=== PATIENT | female | born 1935 | race Caucasian/White ===

== ENCOUNTER → 2017-03-12 | Outpatient (CLI) | payer OTHER, MEDICAID ==
[2013-07-30 09:30] VITALS: BP 121/56
[2017-03-12 07:23] LABS: BASOPHILS % (AUTO) 0.4 % (0.2-1.0); EOSINOPHILS # (AUTO) 0.2 x10^3/uL (0.0-0.2); EOSINOPHILS % (AUTO) 3.7 % (0.9-2.9); HEMATOCRIT 38.1 % (36.0-47.0); HEMOGLOBIN 13.3 g/dL (12.0-16.0); LYMPHOCYTES # (AUTO) 1.9 X10^3/uL (1.3-2.9); LYMPHOCYTES % (AUTO) 28.8 % (21.0-51.0); MEAN CORPUSCULAR HEMOGLOBIN 31.9 pg (27.0-34.0); MEAN CORPUSCULAR HGB CONC 34.8 g/dL (33.0-35.0); MEAN CORPUSCULAR VOLUME 91.7 fL (80.0-100.0); MEAN PLATELET VOLUME 8.5 fL (7.4-11.0); MONOCYTES # (AUTO) 0.7 x10^3/uL (0.3-0.8); MONOCYTES % (AUTO) 10.7 % (0.0-13.0); NEUTROPHILS # (AUTO) 3.8 x10^3/uL (2.2-4.8); NEUTROPHILS % (AUTO) 56.4 % (42.0-75.0); PLATELET COUNT 195 X10^3/uL (150.0-450.0); RED BLOOD COUNT 4.15 X10^6/uL (3.5-5.4); RED CELL DISTRIBUTION WIDTH 13.3 % (11.6-16.5); WHITE BLOOD COUNT 6.7 X10^3/uL (3.6-10.0)
--- NOTE | 2017-03-12 07:25 | RAD ---
HISTORY: Abdominal pain Study: Acute abdominal series Comparison: None Findings: The trachea is midline. The cardiac silhouette is unremarkable. The lungs are clear without focal infiltrate or effusion. The bony thorax is unremarkable. Flat plate and upright evaluation of the abdomen demonstrates a normal bowel gas pattern. No pneumop eritoneum is identified.. No pathological soft tissue mass or calcification can be observed. The b shara structures are grossly intact. IMPRESSION: 1. No acute cardiopulmonary disease. 2. No evidence for acute abdominal pathology identified. Reported By:
[2017-03-12 07:30] LABS: ALANINE AMINOTRANSFERASE 20 Units/L (12-78); ALBUMIN 3.6 g/dL (3.4-5.0); ALKALINE PHOSPHATASE 69 Units/L (46-116); ASPARTATE AMINO TRANSFERASE 21 Units/L (15-37); BLOOD UREA NITROGEN 18 mg/dL (7-18); CALCIUM 9.3 mg/dL (8.5-10.1); CARBON DIOXIDE 30.6 mmol/L (21-32); CHLORIDE 106 mmol/L (98-107); CREATININE 1.14 mg/dL (0.55-1.02); GLUCOSE 96 mg/dL (65-99); SODIUM 140 mmol/L (136-145); TOTAL PROTEIN 7.5 g/dL (6.4-8.2); eGFR BLACK RACES 59 (>60); eGFR NON BLACK RACES 49 (>60)
== END | disposition home or self-care (01) | DRG 392 ==
LOC: LAB 06:49
PROVIDERS: ATTEND Nurse Practitioner Family
DX: R10.31 Right lower quadrant pain (principal); R10.32 Left lower quadrant pain; R39.89 Other symptoms and signs involving the genitourinary system; Z87.19 Personal history of other diseases of the digestive system; B95.4 Other streptococcus as the cause of diseases classified elsewhere
CPT/HCPCS: 36415; 74022; 80053; 82270; 85025; 87045; 87086; 87088; 87186; 87338; 87427; 87493; 87899

== ENCOUNTER → 2017-09-15 | Outpatient (CLI) | payer OTHER, MEDICAID ==
[2013-07-30 09:30] VITALS: BP 121/56
[2017-09-15 08:41] LABS: BASOPHILS % (AUTO) 0.3 % (0.2-1.0); EOSINOPHILS # (AUTO) 0.2 x10^3/uL (0.0-0.2); EOSINOPHILS % (AUTO) 2.8 % (0.9-2.9); HEMATOCRIT 37.5 % (36.0-47.0); HEMOGLOBIN 12.7 g/dL (12.0-16.0); LYMPHOCYTES # (AUTO) 1.9 X10^3/uL (1.3-2.9); LYMPHOCYTES % (AUTO) 28.3 % (21.0-51.0); MEAN CORPUSCULAR HGB CONC 33.8 g/dL (33.0-35.0); MEAN CORPUSCULAR VOLUME 94.4 fL (80.0-100.0); MEAN PLATELET VOLUME 8.2 fL (7.4-11.0); MONOCYTES # (AUTO) 0.6 x10^3/uL (0.3-0.8); MONOCYTES % (AUTO) 9.6 % (0.0-13.0); NEUTROPHILS # (AUTO) 3.9 x10^3/uL (2.2-4.8); PLATELET COUNT 181 X10^3/uL (150.0-450.0); RED BLOOD COUNT 3.97 X10^6/uL (3.5-5.4); WHITE BLOOD COUNT 6.7 X10^3/uL (3.6-10.0)
[2017-09-15 08:49] LABS: ALANINE AMINOTRANSFERASE 19 Units/L (12-78); ALBUMIN 3.4 g/dL (3.4-5.0); ALKALINE PHOSPHATASE 73 Units/L (46-116); ASPARTATE AMINO TRANSFERASE 19 Units/L (15-37); BLOOD UREA NITROGEN 20 mg/dL (7-18); CALCIUM 8.4 mg/dL (8.5-10.1); CARBON DIOXIDE 29.3 mmol/L (21-32); CHLORIDE 105 mmol/L (98-107); CHOL/HDL RATIO 3.2 (0.0-5.0); CHOLESTEROL 177 mg/dL (0-200); CREATININE 0.96 mg/dL (0.55-1.02); HDL CHOLESTEROL 55 mg/dL (40-60); SODIUM 141 mmol/L (136-145); TOTAL PROTEIN 6.9 g/dL (6.4-8.2); TRIGLYCERIDES 101 mg/dL (0-150); eGFR BLACK RACES > 60 (>60); eGFR NON BLACK RACES 59 (>60)
[2017-09-19 15:19] LABS: METHYLMALONIC ACID 0.17 umol/L (0.00-0.40)
== END ==
LOC: LAB 08:08
PROVIDERS: ATTEND Nurse Practitioner Family
DX: I10 Essential (primary) hypertension (principal); E78.4 Other hyperlipidemia; E53.8 Deficiency of other specified B group vitamins; Z79.890 Hormone replacement therapy
CPT/HCPCS: 36415; 80053; 80061; 82607; 83918; 84270; 84402; 84403; 85025

== ENCOUNTER → 2017-10-19 | Outpatient (CLI) | payer OTHER, MEDICAID ==
[2013-07-30 09:30] VITALS: BP 121/56
== END ==
LOC: LAB 07:54
PROVIDERS: ATTEND Psychiatry & Neurology Neurology
DX: Z79.890 Hormone replacement therapy (principal)
CPT/HCPCS: 36415; 84270; 84402; 84403

== ENCOUNTER → 2018-01-04 | Outpatient (CLI) | payer OTHER, MEDICAID ==
[2013-07-30 09:30] VITALS: BP 121/56
[2018-01-04 07:53] LABS: BASOPHILS # (AUTO) 0.1 X10^3/uL (0.0-0.1); BASOPHILS % (AUTO) 1.2 % (0.2-1.0); EOSINOPHILS # (AUTO) 0.2 x10^3/uL (0.0-0.2); EOSINOPHILS % (AUTO) 2.9 % (0.9-2.9); HEMATOCRIT 38.4 % (36.0-47.0); HEMOGLOBIN 13.2 g/dL (12.0-16.0); LYMPHOCYTES # (AUTO) 1.5 X10^3/uL (1.3-2.9); LYMPHOCYTES % (AUTO) 26.1 % (21.0-51.0); MEAN CORPUSCULAR HEMOGLOBIN 32.8 pg (27.0-34.0); MEAN CORPUSCULAR HGB CONC 34.4 g/dL (33.0-35.0); MEAN CORPUSCULAR VOLUME 95.2 fL (80.0-100.0); MEAN PLATELET VOLUME 7.7 fL (7.4-11.0); MONOCYTES # (AUTO) 0.5 x10^3/uL (0.3-0.8); MONOCYTES % (AUTO) 8.9 % (0.0-13.0); NEUTROPHILS # (AUTO) 3.6 x10^3/uL (2.2-4.8); NEUTROPHILS % (AUTO) 60.9 % (42.0-75.0); PLATELET COUNT 182 X10^3/uL (150.0-450.0); RED BLOOD COUNT 4.04 X10^6/uL (3.5-5.4); RED CELL DISTRIBUTION WIDTH 15.4 % (11.6-16.5); WHITE BLOOD COUNT 5.9 X10^3/uL (3.6-10.0)
[2018-01-04 08:06] LABS: ALANINE AMINOTRANSFERASE 22 Units/L (12-78); ALBUMIN 3.6 g/dL (3.4-5.0); ALKALINE PHOSPHATASE 59 Units/L (46-116); ASPARTATE AMINO TRANSFERASE 20 Units/L (15-37); BLOOD UREA NITROGEN 19 mg/dL (7-18); CALCIUM 8.6 mg/dL (8.5-10.1); CARBON DIOXIDE 28.6 mmol/L (21-32); CHLORIDE 102 mmol/L (98-107); CHOL/HDL RATIO 3.1 (0.0-5.0); CHOLESTEROL 196 mg/dL (0-200); CREATININE 1.05 mg/dL (0.55-1.02); HDL CHOLESTEROL 64 mg/dL (40-60); SODIUM 138 mmol/L (136-145); TOTAL PROTEIN 7.4 g/dL (6.4-8.2); TRIGLYCERIDES 115 mg/dL (0-150); eGFR BLACK RACES > 60 (>60); eGFR NON BLACK RACES 53 (>60)
[2018-01-08 15:38] LABS: DEHYDROEPIANDROSTERONE SULFATE 5 ug/dL (10-90)
== END ==
LOC: LAB 07:28
PROVIDERS: ATTEND Nurse Practitioner Family
DX: I10 Essential (primary) hypertension (principal); E78.4 Other hyperlipidemia; E53.8 Deficiency of other specified B group vitamins; Z79.890 Hormone replacement therapy
CPT/HCPCS: 36415; 80053; 80061; 82607; 82627; 82671; 84144; 84270; 84402; 84403; 85025

== ENCOUNTER 2019-06-08 13:16 | Inpatient (IN) ==
--- NOTE | 2019-06-08 13:40 | ED.ABDFE ---
HPI Time Seen Time Seen by Provider: 06/08/19 13:25 PCP Primary Care Physician: SARI JIM HPI Comment HPI Comment: PATIENT IS 84YR OLD WHITE FEMALE WITH HISTORY OF DIVERTICULITIS IN ED WEAK WITH SEVERE ABDOMINAL PAIN. PATIENT IS ON ORAL ANTIBIOTICS. SEEN IN ED IN [place]NE[place] YESTERDAY. CT ABDOMEN AND PELVIC WITH CONTRAST DONE. PNEUMONIA REPORTED BUT NO ACUTE ABDOMEN DIAGNOSE. PATIENT CONTINUE HAVING DIARRHEA AND FEELING WEAK WITH INCREASE ABDOMINAL PAIN. SHE IS ANOREXIC AND NOT HOLDING DOWN FOOD. ABDOMINAL PAIN IS DIFFUSE CRAMPS 10/10 AND RADIATES TO THE BACK. MEDIICATION TAKEN IS NOT STAYING DOWN AND NOT HELPING PAIN. PATIENT SAID SHE FEEL DEHYDRATED. Complaint Doctors Chief Complaint Comments: ABDOMINAL PAIN, DIARRHEA, GENERALIZES WEAKNESS. Chief Complaint:: "I JUST CAN'T TAKE THIS PAIN IN MY STOMACH ANYMORE. I WAS SEEN IN SNELLING ER YESTERDAY AND THEY DID NOTHING FOR ME I'M GOING TO NEED PAIN MEDICATION." Self Treatment fo Chief Complaint: NONE Reviewed Nurses Notes Review: Yes Source History Provided: Patient Mode of arrival Mode of Arrival: EMS Timing Onset of Chief Complaint: 06/06/19 Came on: Suddenly Duration Since Onset: Constant Duration: Days Location Location: Diffuse Severity Severity: Moderate Quality Quality: Cramping and Generalized Context History of: None Modifying factors Worsening Factors: Movement Improving Factors: Lying Still Associated signs and symptoms Associated Signs and Symptoms: Nausea, Vomiting and Diarrhea PMH PMH Past Medical History: Yes Past Medical History: Anxiety, Arthritis, Depression and Hypertension Past Surgical History: Yes 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 Family History History of Family Medical Conditions: Yes Family Medical History: Cancer and [place] Social History Does patient currently use any type of tobacco product: No Have you used tobacco products in the last 12 months: No Type of Tobacco Use: None Does any household member use tobacco: No Alcohol Use: None Do you use any recreational Drugs:: No Lives With: Family Lives Where: Home infectious screening In the last 2 months have you had wt loss of >10#?: NO Have you had fever, night sweats or hemotysis?: No Have you traveled outside the country in the last 6 months?: No Isolation: Standard ROS Review of Systems Constitutional: See HPI, Weakness and Fatigue; negative Fever Eyes: No Symptoms Reported and See HPI; negative Eye Pain and Discharge ENTM: No Symptoms Reported and See HPI; negative Ear Pain, Nose Discharge, Nose Congestion and Throat Pain Respiratoy: No Symptoms Reported and See HPI; negative Short of Breath and Wheezing Cardiovascular: No Symptoms Reported and See HPI; negative Chest Pain, Edema and Palpitations Gastrointestinal/Abdominal: Abdominal Pain, Diarrhea, Nausea and Vomiting Genitourinary: No Symptoms Reported and See HPI; negative Dysuria, Frequency and Hematuria Neurological: See HPI, Weakness and Dizziness; negative Headache Musculoskeletal: See HPI, Back Pain and Muscle Pain Integumentary: See HPI and Dryness; negative Change in Color Hematologic/Lymphatic: No Symptoms Reported and See HPI; negative Easy Bleeding, Easy Bruising and Swollen Glands Endocrine: See HPI and Increased Thirst; negative Increased Urine Psychiatric: No Symptoms Reported and See HPI All Other Systems: Reviewed and Negative PE Vital Signs Vitals: Temperature 98.6 F Pulse Rate [Right Dorsalis 66 Pedis] Pulse Rate 66 Respiratory Rate 20 Blood Pressure [Right Arm] 156/69 Blood Pressure [Left Arm] 126/65 Blood Pressure 171/77 O2 Sat by Pulse Oximetry 96 General Limitations: No Limitations General Appearance: Alert and In No Apparent Distress Head Head Exam: Normal Inspection Eyes Eye exam: Normal Appearance and PERRL; negative Scleral Icterus and Conjunctival Injection ENT ENT Exam: Normal Exam, Normal Oropharynx, Normal External Ear Exam and TM's Nor mal Bilaterally Neck Neck Exam: Normal Inspection and Trachea Midline; negative Tenderness and Lymphadenopathy Chest Chest Inspection: Normal Inspection and Symmetric Chest Wall Rise; negative Tenderness Respiratory Respiratory Exam: Normal Lung Sounds Bilat; negative Accessory Muscle Use, Chest Wall Tenderness and Respiratory Distress Respiratory Exam: Bilateral: Clear to Auscultation Cardiovascular Cardiovascular Exam: Regular Rate and Normal Rhythm; negative Normal Heart Sounds, Systolic Murmur and Diastolic Murmur Abdominal Exam Abdominal Exam: Normal Bowel Sounds, Soft and Tenderness Abdominal Tenderness: Diffuse and Moderate Rectal Rectal Exam: Deferred Back Back Exam: Normal Inspection; negative Tenderness, (R) CVA Tenderness, (L) CVA Tenderness, Paraspinal Tenderness and Vertebral Tenderness Extremeties Extremities Exam: Normal Inspection and Normal Capillary Refill; negative Tenderness, Edema and Calf Tenderness External Exam: Female: Deferred : Speculum Exam (Female): Deferred : Bimanual Exam (female): Deferred Neurologic Neurological Exam: Alert and Oriented X3; negative Motor Sensory Deficit Psychiatric Psychiatric Exam: Normal Affect and Normal Mood Skin Skin Exam: Dry MDM Additional Information Obtained From Additional information provided by: Family Differential Diagnosis Differential Diagnosis- Considerations may include:: Cholcystitis, Cholelethiasis, Diverticular disease, Gastritus/PUD, Gastroenteritis, Inflammatory BD, Pancreatitis, Urinary tract infection and Urolithiasis COURSE Treatment Treatment: SEE ORDERS. NS 1L IV BOLUS. ZOFRAN 4MG IV AND DEMOROL 12.5MG IV. STIL L NAUSEATED. ZOFRAN 4MG IS. Reevaluation 1st: Improved (PAIN IMPROVING.) Consultation Consultation Comments: DISCUSS PATIENT WITH DR. CHEN. HE WILL ADMIT PATIENT. TIME 2MINUTES. Education/Counseling Education/Counseling: Patient and Family Educated On: Diagnosis ROR Labs Reviewed Laboratory Results Reviewed?: Yes Result Diagrams: 06/09/19 04:43 06/09/19 15:45 Laboratory: WBC 5.6 X10^3/uL (3.6-10.0) 06/09/19 04:43 RBC 3.34 X10^6/uL (3.5-5.4) L 06/09/19 04:43 Hgb 10.8 g/dL (12.0-16.0) L 06/09/19 04:43 Hct 30.4 % (36.0-47.0) L 06/09/19 04:43 MCV 91.2 fL (80.0-100.0) 06/09/19 04:43 MCH 32.4 pg (27.0-34.0) 06/09/19 04:43 MCHC 35.5 g/dL (33.0-35.0) H 06/09/19 04:43 RDW 14.4 % (11.6-16.5) 06/09/19 04:43 Plt Count 191 X10^3/uL (150.0-450.0) 06/09/19 04:43 MPV 7.1 fL (7.4-11.0) L 06/09/19 04:43 Neut % (Auto) 63.5 % (42.0-75.0) 06/09/19 04:43 Lymph % (Auto) 18.0 % (21.0-51.0) L 06/09/19 04:43 [place] % (Auto) 14.6 % (0.0-13.0) H 06/09/19 04:43 Eos % (Auto) 3.7 % (0.9-2.9) H 06/09/19 04:43 Baso % (Auto) 0.2 % (0.2-1.0) 06/09/19 04:43 Neut # (Auto) 3.5 x10^3/uL (2.2-4.8) 06/09/19 04:43 Lymph # (Auto) 1.0 X10^3/uL (1.3-2.9) L 06/09/19 04:43 [place] # (Auto) 0.8 x10^3/uL (0.3-0.8) 06/09/19 04:43 Eos # (Auto) 0.2 x10^3/uL (0.0-0.2) 06/09/19 04:43 Baso # (Auto) 0.0 X10^3/uL (0.0-0.1) 06/09/19 04:43 Absolute Nucleated RBC 0.0 /100WBC 06/09/19 04:43 Sodium 133 mmol/L (136-145) L 06/09/19 04:43 Corrected Sodium TNP 06/09/19 04:43 Potassium 4.0 mmol/L (3.5-5.1) 06/09/19 15:45 Chloride 95 mmol/L (98-107) L 06/09/19 04:43 Carbon Dioxide 29.4 mmol/L (21-32) 06/09/19 04:43 BUN 5 mg/dL (7-18) L 06/09/19 04:43 Creatinine 1.01 mg/dL (0.55-1.02) 06/09/19 04:43 Est GFR (MDRD) Af Amer > 60 (>60) 06/09/19 04:43 Est GFR (MDRD) Non-Af 56 (>60) L 06/09/19 04:43 Glucose 101 mg/dL (65-99) H 06/09/19 04:43 Lactic Acid 0.7 mmol/L (0.4-2.0) 06/08/19 15:24 Calcium 8.5 mg/dL (8.5-10.1) 06/09/19 04:43 Corrected Calcium 9.1 mg/dL (8.5-10.1) 06/09/19 04:43 Magnesium 3.1 mg/dL (1.7-2.9) H 06/09/19 04:43 Total Bilirubin 0.40 mg/dL (0.2-1.0) 06/09/19 04:43 AST 30 Units/L (15-37) 06/09/19 04:43 ALT 17 Units/L (12-78) 06/09/19 04:43 Alkaline Phosphatase 51 Units/L (46-116) 06/09/19 04:43 Total Protein 6.4 g/dL (6.4-8.2) 06/09/19 04:43 Albumin 3.2 g/dL (3.4-5.0) L 06/09/19 04:43 Globulin 3.2 g/dL (2.5-4.5) 06/09/19 04:43 Albumin/Globulin Ratio 1.0 Ratio (1.1-2.1) L 06/09/19 04:43 Amylase 34 Units/L (25-115) 06/08/19 13:49 Lipase 116 Units/L (73-393) 06/08/19 13:49 Specimen Type Clean catch urine 06/08/19 17:35 Urine Color Pale yellow (YELLOW) 06/08/19 17:35 Urine Appearance Clear (CLEAR) 06/08/19 17:35 Urine pH 6.0 (5.0 - 8.0) 06/08/19 17:35 Ur Specific [place] 1.010 (1.000-1.030) 06/08/19 17:35 Urine Protein Negative (NEGATIVE) 06/08/19 17:35 Urine Glucose (UA) Negative (NEGATIVE) 06/08/19 17:35 Urine Ketones 1+ (NEGATIVE) 06/08/19 17:35 Urine Occult Blood Negative (NEGATIVE) 06/08/19 17:35 Urine Nitrite Negative (NEGATIVE) 06/08/19 17:35 Urine Bilirubin Negative (NEGATIVE) 06/08/19 17:35 Urine Urobilinogen Normal (NORMAL) 06/08/19 17:35 Ur Leukocyte Esterase Negative (NEGATIVE) 06/08/19 17:35 XRAY XRAY Interpreted by: Radiologist XRAY Findings: REPORT DISCUSSED WITH PATIENT AND FAMILY. EKG Rate: 69 Jackpot: Normal Rhythm: NSR Block: None Hypertrophy: None ST: Old, Ant and Infarct Opioid Opioid Risk Tool Age (Jake box if 16-45): No Total: 0 Total Score Risk Category: Low Risk Copyright: Frank JACOB predicting aberrant behaviors Diagnosis Discharge Problem: Acute hyponatremia Abdominal pain Qualifiers: Abdominal location: generalized Qualified Code(s): R10.84 - Generalized abdominal pain Pneumonia Qualifiers: Pneumonia type: due to unspecified organism Laterality: left Lung location: lower lobe of lung Qualified Code(s): J18.1 - Lobar pneumonia, unspecified organism Instructions Instructions: Fall Prevention in the Home, Adult, Bynq-[id number]-[id number] Hyponatremia, [id number] Constipation, Adult, Tjcg-[id number] Abdominal Pain, Adult, [id number] Community-Acquired Pneumonia, Adult, [id number] Forms: Patient Portal
[2019-06-08] MEDS ORDERED: ZOFRAN INJ 4 MG VIAL IVP ONE ×2 (13:42→15:43)
[2019-06-08] MEDS ORDERED: DEMEROL INJ IVP ONE (13:42)
[2019-06-08 13:58] LABS: BASOPHILS % (AUTO) 0.3 % (0.2-1.0); EOSINOPHILS # (AUTO) 0.1 x10^3/uL (0.0-0.2); EOSINOPHILS % (AUTO) 1.5 % (0.9-2.9); HEMATOCRIT 26.4 % (36.0-47.0); HEMOGLOBIN 9.6 g/dL (12.0-16.0); LYMPHOCYTES # (AUTO) 1.1 X10^3/uL (1.3-2.9); LYMPHOCYTES % (AUTO) 20.8 % (21.0-51.0); MEAN CORPUSCULAR HEMOGLOBIN 32.8 pg (27.0-34.0); MEAN CORPUSCULAR HGB CONC 36.3 g/dL (33.0-35.0); MEAN CORPUSCULAR VOLUME 90.3 fL (80.0-100.0); MEAN PLATELET VOLUME 6.8 fL (7.4-11.0); MONOCYTES # (AUTO) 0.9 x10^3/uL (0.3-0.8); MONOCYTES % (AUTO) 15.6 % (0.0-13.0); NEUTROPHILS # (AUTO) 3.4 x10^3/uL (2.2-4.8); NEUTROPHILS % (AUTO) 61.8 % (42.0-75.0); PLATELET COUNT 164 X10^3/uL (150.0-450.0); RED BLOOD COUNT 2.92 X10^6/uL (3.5-5.4); RED CELL DISTRIBUTION WIDTH 14.5 % (11.6-16.5); WHITE BLOOD COUNT 5.5 X10^3/uL (3.6-10.0)
[2019-06-08] MEDS ORDERED: ZOFRAN INJ 4 MG VIAL ONE ×2 (14:03→15:44)
[2019-06-08] MEDS ORDERED: DEMEROL INJ ONE (14:04)
[2019-06-08 14:12] LABS: ALANINE AMINOTRANSFERASE 16 Units/L (12-78); ALBUMIN 3.2 g/dL (3.4-5.0); ALKALINE PHOSPHATASE 50 Units/L (46-116); ASPARTATE AMINO TRANSFERASE 28 Units/L (15-37); BLOOD UREA NITROGEN 7 mg/dL (7-18); CALCIUM 8.3 mg/dL (8.5-10.1); CARBON DIOXIDE 27.2 mmol/L (21-32); CHLORIDE 88 mmol/L (98-107); COR CA(FOR HYPOALB) 8.9 mg/dL (8.5-10.1); CREATININE 1.06 mg/dL (0.55-1.02); TOTAL PROTEIN 6.1 g/dL (6.4-8.2); eGFR NON BLACK RACES 52 (>60)
[2019-06-08] MEDS: NS 1000 ML 1,000 ML IV SCH ×2 (14:12→22:54)
[2019-06-08 14:13] LABS: SODIUM 123 mmol/L (136-145)
[2019-06-08] MEDS ORDERED: PEPCID 20 MG IV PREMIX* 20 MG/50 ML BAG IV PRN (16:27)
[2019-06-08] MEDS ORDERED: MORPHINE SULFATE INJ 2 MG INJ IVP PRN (16:27)
[2019-06-08] MEDS ORDERED: ZOFRAN TAB 4 MG PO PRN (16:33)
[2019-06-08 16:40] LABS: AMYLASE 34 Units/L (25-115); LIPASE 116 Units/L (73-393)
[2019-06-08 17:46] LABS: BILIRUBIN,URINE NEGATIVE (NEGATIVE); BLOOD/HEMOGLOBIN,URINE NEGATIVE (NEGATIVE); GLUCOSE, URINE NEGATIVE (NEGATIVE); KETONES,URINE 1+ (NEGATIVE); LEUKOCYTE ESTERASE ,URINE NEGATIVE (NEGATIVE); NITRITES,URINE NEGATIVE (NEGATIVE); PROTEIN,URINE NEGATIVE (NEGATIVE); UROBILINOGEN,URINE NORMAL (NORMAL)
[2019-06-08 17:48] LABS: APPEARANCE,URINE CLEAR (CLEAR); COLOR,URINE PALE YELLOW (YELLOW)
[2019-06-08] MEDS: ZOSYN VIAL 3.375 GRAMS 3.375 G in NS 100 ML IV + SPIKE MINIBAG* 100 ML IV SCH ×2 (18:40→21:15)
[2019-06-08] MEDS ORDERED: K-DUR TAB 20 MEQ PO PRN (19:04)
[2019-06-08] MEDS ORDERED: KLOR-CON PO PRN (19:04)
[2019-06-08] MEDS ORDERED: POTASSIUM CHLORIDE LIQ 20 MEQ UDC PO PRN (19:04)
[2019-06-08] MEDS ORDERED: POTASSIUM CHL 60 MEQ/NS 0.45% 500 ML IV PRN (19:04)
[2019-06-08] MEDS ORDERED: POTASSIUM CHL 40 MEQ/NS 0.45% 500 ML IV PRN (19:04)
[2019-06-08] MEDS ORDERED: MICRO K EXTEN CAP 10 MEQ PO PRN (19:04)
[2019-06-08] MEDS: RESTORIL CAP 30 MG PO PRN (22:00)
[2019-06-08] MEDS: MAGNESIUM SULFATE 1 GRAM/100 mL PREMIX 1 GM/100 ML BAG IV PRN (23:59)
[2019-06-09] MEDS: MAGNESIUM SULFATE 1 GRAM/100 mL PREMIX 1 GM/100 ML BAG IV PRN ×3 (01:00→03:00)
[2019-06-09 05:17] LABS: BASOPHILS % (AUTO) 0.2 % (0.2-1.0); EOSINOPHILS # (AUTO) 0.2 x10^3/uL (0.0-0.2); EOSINOPHILS % (AUTO) 3.7 % (0.9-2.9); HEMATOCRIT 30.4 % (36.0-47.0); HEMOGLOBIN 10.8 g/dL (12.0-16.0); MEAN CORPUSCULAR HEMOGLOBIN 32.4 pg (27.0-34.0); MEAN CORPUSCULAR HGB CONC 35.5 g/dL (33.0-35.0); MEAN CORPUSCULAR VOLUME 91.2 fL (80.0-100.0); MEAN PLATELET VOLUME 7.1 fL (7.4-11.0); MONOCYTES # (AUTO) 0.8 x10^3/uL (0.3-0.8); MONOCYTES % (AUTO) 14.6 % (0.0-13.0); NEUTROPHILS # (AUTO) 3.5 x10^3/uL (2.2-4.8); NEUTROPHILS % (AUTO) 63.5 % (42.0-75.0); PLATELET COUNT 191 X10^3/uL (150.0-450.0); RED BLOOD COUNT 3.34 X10^6/uL (3.5-5.4); RED CELL DISTRIBUTION WIDTH 14.4 % (11.6-16.5); WHITE BLOOD COUNT 5.6 X10^3/uL (3.6-10.0)
[2019-06-09 05:36] LABS: ALANINE AMINOTRANSFERASE 17 Units/L (12-78); ALBUMIN 3.2 g/dL (3.4-5.0); ALKALINE PHOSPHATASE 51 Units/L (46-116); ASPARTATE AMINO TRANSFERASE 30 Units/L (15-37); BLOOD UREA NITROGEN 5 mg/dL (7-18); CALCIUM 8.5 mg/dL (8.5-10.1); CARBON DIOXIDE 29.4 mmol/L (21-32); CHLORIDE 95 mmol/L (98-107); COR CA(FOR HYPOALB) 9.1 mg/dL (8.5-10.1); CREATININE 1.01 mg/dL (0.55-1.02); MAGNESIUM 3.1 mg/dL (1.7-2.9); SODIUM 133 mmol/L (136-145); TOTAL PROTEIN 6.4 g/dL (6.4-8.2); eGFR NON BLACK RACES 56 (>60)
[2019-06-09] MEDS: NS 1000 ML 1,000 ML IV SCH ×2 (05:58→22:00)
[2019-06-09] MEDS: K-RIDER 10 MEQ/NS 100 ML 10 MEQ/100 ML BAG IV PRN ×5 (06:48→12:30)
--- NOTE | 2019-06-09 07:49 | RAD ---
HISTORY: Nausea, abdominal pain Study: Flat and upright abdomen, PA chest Comparison: None available Findings: The heart is mildly enlarged. No congestive heart failure is noted. The lungs are well inflated and free of acute infiltrates. Mild interstitial lung changes are present. The abdominal gas pattern is nonspecific and nonobstructive. No pneumoperitoneum is identified. No abnormal masses or abnormal calcifications are identified. IMPRESSION: Unremarkable abdomen Mild cardiomegaly without congestive heart failure, lungs clear Reported By:
[2019-06-09 07:51] VITALS: BMI 20.5
[2019-06-09] MEDS: ZOSYN VIAL 3.375 GRAMS 3.375 G in NS 100 ML IV + SPIKE MINIBAG* 100 ML IV SCH ×4 (08:25→20:35)
[2019-06-09] MEDS ORDERED: PHARMACY CONSULT - DOSE _____ XX SCH (09:00)
[2019-06-09] MEDS: LOVENOX INJ 40 MG SYR SC SCH (14:54)
[2019-06-09] MEDS: RESTORIL CAP 30 MG PO PRN (20:31)
[2019-06-10] MEDS: NS 1000 ML 1,000 ML IV SCH ×2 (00:39→06:29)
[2019-06-10 06:14] LABS: BASOPHILS % (AUTO) 0.4 % (0.2-1.0); EOSINOPHILS # (AUTO) 0.3 x10^3/uL (0.0-0.2); EOSINOPHILS % (AUTO) 5.1 % (0.9-2.9); HEMATOCRIT 27.8 % (36.0-47.0); HEMOGLOBIN 9.9 g/dL (12.0-16.0); LYMPHOCYTES % (AUTO) 20.6 % (21.0-51.0); MEAN CORPUSCULAR HEMOGLOBIN 32.5 pg (27.0-34.0); MEAN CORPUSCULAR HGB CONC 35.5 g/dL (33.0-35.0); MEAN CORPUSCULAR VOLUME 91.6 fL (80.0-100.0); MEAN PLATELET VOLUME 7.1 fL (7.4-11.0); MONOCYTES # (AUTO) 0.8 x10^3/uL (0.3-0.8); MONOCYTES % (AUTO) 15.5 % (0.0-13.0); NEUTROPHILS % (AUTO) 58.4 % (42.0-75.0); PLATELET COUNT 171 X10^3/uL (150.0-450.0); RED BLOOD COUNT 3.03 X10^6/uL (3.5-5.4); RED CELL DISTRIBUTION WIDTH 14.6 % (11.6-16.5)
--- NOTE | 2019-06-10 06:17 | RAD ---
HISTORY: Rectal fecal impaction Study: Flat and upright abdomen, PA chest Comparison: 06/09/2019 Findings: The heart is enlarged. No congestive heart failure is noted. The lungs are free of acute alveolar infiltrates. Mild interstitial lung changes are present. The abdominal gas pattern is nonspecific and nonobstructive. No pneumoperitoneum is identified. There is some stool in the rectosigmoid. No abnormal masses or abnormal calcifications are identified. IMPRESSION: Unremarkable abdomen Mild cardiomegaly without congestive heart failure No acute infiltrates Reported By:
[2019-06-10] MEDS: ZOSYN VIAL 3.375 GRAMS 3.375 G in NS 100 ML IV + SPIKE MINIBAG* 100 ML IV SCH (06:20)
[2019-06-10 06:48] LABS: ALANINE AMINOTRANSFERASE 13 Units/L (12-78); ALBUMIN 2.8 g/dL (3.4-5.0); ALKALINE PHOSPHATASE 42 Units/L (46-116); ASPARTATE AMINO TRANSFERASE 21 Units/L (15-37); BLOOD UREA NITROGEN 4 mg/dL (7-18); CALCIUM 8.2 mg/dL (8.5-10.1); CARBON DIOXIDE 25.9 mmol/L (21-32); CHLORIDE 103 mmol/L (98-107); COR CA(FOR HYPOALB) 9.2 mg/dL (8.5-10.1); CREATININE 0.99 mg/dL (0.55-1.02); SODIUM 138 mmol/L (136-145); TOTAL PROTEIN 5.7 g/dL (6.4-8.2); eGFR NON BLACK RACES 57 (>60)
[2019-06-10] MEDS: LOVENOX INJ 40 MG SYR SC SCH (08:46)
[2019-06-10] MEDS ORDERED: DIFLUCAN PO ONE (10:00)
[2019-06-10 10:27] VITALS: BP 184/79
== END 2019-06-10 11:40 | disposition home or self-care (01) | DRG 388 ==
LOC: ER 13:16 → MED/SURG 16:03
PROVIDERS: ADMIT Obstetrics & Gynecology Obstetrics; ATTEND Obstetrics & Gynecology Obstetrics
DX: R19.7 Diarrhea, unspecified; K52.89 Other specified noninfective gastroenteritis and colitis; E87.1 Hypo-osmolality and hyponatremia; R26.89 Other abnormalities of gait and mobility; R53.1 Weakness; J18.8 Other pneumonia, unspecified organism; R10.84 Generalized abdominal pain; K56.41 Fecal impaction; R94.31 Abnormal electrocardiogram [ECG] [EKG]
CPT/HCPCS: 36415; 74022; 80053; 81003; 82150; 83605; 83690; 83735; 84132; 85025; 87040; 93005; 96365; 96367; 96374; 96375; 97161; 99284; A4222; J1650; J2175; J2405; J2543; J3475; J3480; J7030; J7050

== ENCOUNTER 2019-11-02 10:54 | Inpatient (IN) ==
--- NOTE | 2019-11-02 11:26 | DR.AMS ---
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 Dose reduction techniques including Automated Exposure Control (AEC) and adjustment of mA and kV were utilized. FINDINGS The visualized portions of the lung bases are unremarkable. There is some stranding around the tail of the pancreas compatible with acute pancreatitis. The pancreas enhances normally and there is no evidence for splenic artery aneurysm or portal venous/splenic vein thrombosis. The solid organs otherwise un remarkable in their contrast appearance. The gallbladder is unremarkable in its CT appearance . No significant mesenteric lymphadenopathy or stranding can be observed. No free fluid or free air is seen within the abdomen. No bowel wall thickening or bowel dilatation is present. The colon demonstrates left-sided diverticulosis without evidence for diverticulitis. Appendix is normal. There is an IUD noted in the uterus. The urinary bladder is grossly unremarkable. The bony structures are grossly intact. IMPRESSION Findings as above compatible with acute pancreatitis. Left-sided colonic diverticulosis without evidence for diverticulitis. Electronically signed by: ALESIA CARLIN (Nov 02, 2019 11:05:55) Opioid Opioid Risk Tool Age (Jake box if 16-45): No History of Preadolescent Sexual Abuse: No Total: 0 Total Score Risk Category: Low Risk Copyright: Marie predicting aberrant behaviors Diagnosis Discharge Problem: Abdominal pain ADDITIONAL NOTES Additional Notes Additional Notes: Mild stranding tail of the pancrease per radiology but amylase and lipase were normal. Patient has had pain for months making pancreatitis unlikely. Dr. Villa has written discharge instructions and patient has appointment with Dr. Simmons for tomorrow. Pt. has already been referred to Dr. Palmer. Pt. will be discharged to home.
--- NOTE | 2019-11-02 11:36 | DR.AMS ---
HPI Time Seen Time Seen by Provider: 11/02/19 11:22 PCP Primary Care Physician: ? HPI Comment HPI Comment: Suspected overdose. Patient nasally intubated in the field Complaint Cheif Complaint Doctors Comments: Patient did not respond to family phone call and then brother went over and found her unresponsive. Last heard from at 20:30 last night. Chief Complaint:: EMS OUT TO PT UNRESPONSIVE, UPON ARRIVAL EMS STATES PT TO BE HAVING AGONAL RESP AND BREATHING , PT SATS 70'S, PT HAD PILL BOTTLES AROUND HER , ( [facility] , [facility] FILLED 2 DAYS AGO AND BOTTLES WERE EMPTY) PT IS NASALLY INTUBATED TO HER LEFT CHENEY AND PT BEING PER EMS AND PT IS BEING BAGGED , UPON ARRIVAL TO ER PT OPENS EYES AND MOVING AROUND PT PLACED ON MONITOR, ST RATE OF 60'S SR, MODERATE AMOUNT OF BLEEDING NOTED TO PTS LEFT NARE PT SUCTIONED PER RESP,BR Reviewed Nurses Notes Reviewed: Yes Source History Provided: Family Member and EMS Mode of Arrival Mode of Arrival: EMS Timing Onset of Chief Complaint: 11/02/19 Symptoms: Improving Severity Severity: Severe and Unresponsive Context Recent: None History Of: None Associated Signs and Symptoms Associated Signs and Symptoms: Unresponsiveness Other History Other History: Empty pill bottles found on the night stand next to the patient. 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 Family History History of Family Medical Conditions: Yes Family Medical History: Cancer and [place] Social History Does patient currently use any type of tobacco product: No Have you used tobacco products in the last 12 months: No Type of Tobacco Use: None Does any household member use tobacco: No Alcohol Use: None Do you use any recreational Drugs:: No Lives With: Family Lives Where: Home infectious screening In the last 2 months have you had wt loss of >10#?: NO Have you had fever, night sweats or hemotysis?: No Have you traveled outside the country in the last 6 months?: No Isolation: Standard ROS Review of Systems Unable to Obtain Due To: Altered mental status and Intubated PE Vitals Vital Signs: Temp Pulse Resp BP BP Pulse Ox 11/02/19 13:21 60 16 112/51 99 11/02/19 13:15 60 11 L 96 11/02/19 13:11 58 L 13 147/63 100 11/02/19 13:01 60 25 H 119/54 100 11/02/19 13:00 67 26 H 97 11/02/19 12:50 56 L 17 98/52 100 11/02/19 12:45 54 L 17 100 11/02/19 12:41 55 L 19 106/50 100 11/02/19 12:32 51 L 17 91/42 100 11/02/19 12:30 55 L 20 100 11/02/19 12:14 96.4 F L 11/02/19 11:26 97.0 F L 68 18 188/79 92 L 06/10/19 08:00 184/79 General Limitations: Altered Mental Status and Other (nasally intubated) General Appearance: Obtunded Head Head Exam: Normal Inspection Eyes Eye exam: Normal Appearance Pupils: Regular, Round: Bilateral and Reactive: Bilateral ENT ENT Exam: Other (L nares with nasal trach) Mouth Exam: Normal Inspection Throat Exam: Normal Inspection Neck Neck Exam: Normal Inspection Chest Chest Inspection: Normal Inspection Respiratory Respiratory Exam: Normal Lung Sounds Bilat Cardiovascular Cardiovascular Exam: Regular Rate Abdominal Exam Abdominal Exam: Normal Inspection Extremities Extremities Exam: Normal Inspection Back Back Exam: Normal Inspection Neurological Neurological Exam: Other (AMS obtunded); negative Alert and Motor Sensory Deficit Skin Skin Exam: Dry and Normal Color; negative Warm (cool) COURSE Treatment Treatment: Pt. maintaining sats with T piece. She is becoming more arouseable an d picking head up off the cart ROR Labs Reviewed Laboratory Results Reviewed?: Yes Result Diagrams: 11/02/19 11:23 11/02/19 11:23 Laboratory: WBC 9.5 X10^3/uL (3.6-10.0) 11/02/19 11:23 RBC 3.54 X10^6/uL (3.5-5.4) 11/02/19 11:23 Hgb 11.4 g/dL (12.0-16.0) L 11/02/19 11:23 Hct 33.2 % (36.0-47.0) L 11/02/19 11:23 MCV 93.7 fL (80.0-100.0) 11/02/19 11:23 MCH 32.1 pg (27.0-34.0) 11/02/19 11:23 MCHC 34.3 g/dL (33.0-35.0) 11/02/19 11:23 RDW 14.1 % (11.6-16.5) 11/02/19 11:23 Plt Count 196 X10^3/uL (150.0-450.0) 11/02/19 11:23 MPV 7.4 fL (7.4-11.0) 11/02/19 11:23 Neut % (Auto) 78.3 % (42.0-75.0) H 11/02/19 11:23 Lymph % (Auto) 11.4 % (21.0-51.0) L 11/02/19 11:23 [place] % (Auto) 9.8 % (0.0-13.0) 11/02/19 11:23 Eos % (Auto) 0.4 % (0.9-2.9) L 11/02/19 11:23 Baso % (Auto) 0.1 % (0.2-1.0) L 11/02/19 11:23 Neut # (Auto) 7.4 x10^3/uL (2.2-4.8) H 11/02/19 11:23 Lymph # (Auto) 1.1 X10^3/uL (1.3-2.9) L 11/02/19 11:23 [place] # (Auto) 0.9 x10^3/uL (0.3-0.8) H 11/02/19 11:23 Eos # (Auto) 0.0 x10^3/uL (0.0-0.2) 11/02/19 11:23 Baso # (Auto) 0.0 X10^3/uL (0.0-0.1) 11/02/19 11:23 Absolute Nucleated RBC 0.0 /100WBC 11/02/19 11:23 Sample Site Lr 11/02/19 12:20 ABG pH 7.330 (7.35-7.45) L 11/02/19 12:20 ABG pCO2 50.0 mmHg (35.0-45.0) H 11/02/19 12:20 ABG pO2 71.0 mmHg (80.0-100.0) L 11/02/19 12:20 ABG HCO3 26.4 mmol/L (22-26) H 11/02/19 12:20 ABG O2 Saturation 93.0 % (90-100) 11/02/19 12:20 ABG Base Excess -0.1 mmol/L (-2.0-2.0) 11/02/19 12:20 Test Pos 11/02/19 12:20 A-a Gradient 66.0 mmHg 11/02/19 12:20 FiO2 28.0 11/02/19 12:20 Blood Gas Comments Pt naif well. cdn 11/02/19 12:20 Sodium 137 mmol/L (136-145) 11/02/19 11:23 Corrected Sodium 137 mmol/L (136-145) 11/02/19 11:23 Potassium 5.6 mmol/L (3.5-5.1) H 11/02/19 11:23 Chloride 103 mmol/L (98-107) 11/02/19 11:23 Carbon Dioxide 32.1 mmol/L (21-32) H 11/02/19 11:23 BUN 13 mg/dL (7-18) 11/02/19 11:23 Creatinine 1.31 mg/dL (0.55-1.02) H 11/02/19 11:23 Est GFR (MDRD) Af Amer 50 (>60) L 11/02/19 11:23 Est GFR (MDRD) Non-Af 41 (>60) L 11/02/19 11:23 Glucose 112 mg/dL (65-99) H 11/02/19 11:23 Lactic Acid 2.4 mmol/L (0.4-2.0) H 11/02/19 12:34 Calcium 8.4 mg/dL (8.5-10.1) L 11/02/19 11:23 Corrected Calcium 9.3 mg/dL (8.5-10.1) 11/02/19 11:23 Total Bilirubin 0.10 mg/dL (0.2-1.0) L 11/02/19 11:23 AST 25 Units/L (15-37) 11/02/19 11:23 ALT 19 Units/L (12-78) 11/02/19 11:23 Alkaline Phosphatase 64 Units/L (46-116) 11/02/19 11:23 Total Protein 6.3 g/dL (6.4-8.2) L 11/02/19 11:23 Albumin 2.9 g/dL (3.4-5.0) L 11/02/19 11:23 Globulin 3.4 g/dL (2.5-4.5) 11/02/19 11:23 Albumin/Globulin Ratio 0.9 Ratio (1.1-2.1) L 11/02/19 11:23 Specimen Type Catherized urine 11/02/19 11:25 Urine Color Yellow (YELLOW) 11/02/19 11:25 Urine Appearance Cloudy (CLEAR) 11/02/19 11:25 Urine pH 5.0 (5.0 - 8.0) 11/02/19 11:25 Ur Specific [place] 1.010 (1.000-1.030) 11/02/19 11:25 Urine Protein 3+ (NEGATIVE) 11/02/19 11:25 Urine Glucose (UA) Negative (NEGATIVE) 11/02/19 11:25 Urine Ketones Negative (NEGATIVE) 11/02/19 11:25 Urine Occult Blood 3+ (NEGATIVE) 11/02/19 11:25 Urine Nitrite Positive (NEGATIVE) 11/02/19 11:25 Urine Bilirubin Negative (NEGATIVE) 11/02/19 11:25 Urine Urobilinogen Normal (NORMAL) 11/02/19 11:25 Ur Leukocyte Esterase 3+ (NEGATIVE) 11/02/19 11:25 Urine RBC 5-10 /HPF (0-3) A 11/02/19 11:25 Urine WBC Tntc /HPF (0-5) A 11/02/19 11:25 Ur Squamous Epith Cells Negative /HPF (NEGATIVE) 11/02/19 11:25 Urine Bacteria 1+ /HPF (NEGATIVE) 11/02/19 11:25 Urine Mucus Moderate /HPF (NEGATIVE) 11/02/19 11:25 Ur Culture Indicated? Yes/culture set up 11/02/19 11:25 Urine Opiates Screen Positive (NEG=<300) A 11/02/19 11:25 Urine Methadone Screen Negative (NEG=<300) 11/02/19 11:25 Ur Barbiturates Screen Negative (NEG=<200) 11/02/19 11:25 Ur Phencyclidine Scrn Negative (NEG=<25) 11/02/19 11:25 Ur Amphetamines Screen Negative (NEG=<1000) 11/02/19 11:25 U Benzodiazepines Scrn Positive (NEG=<200) A 11/02/19 11:25 Urine Cocaine Screen Negative (NEG=<300) 11/02/19 11:25 U Marijuana (THC) Screen Negative (NEG=<50) 11/02/19 11:25 Other Results Comments: HISTORY UNRESPONSIVE, ET TUBE PLACEMENT STUDY CHEST, 1 VIEW COMPARISON Chest x-ray June 10, 2019 FINDINGS The trachea is midline. An ET tube is in place with the tip 5.6 cm above the tariq. The cardiac silhouette is unremarkable . The lungs are clear without focal infiltrate or effusion. There are mild chronic changes of fibrosis stable in the lung bases ease. There is a minimal superimposed infiltrate in the right lung base. The bony thorax is unremarkable. IMPRESSION Chronic changes in the lung bases but new infiltrate is seen in the right lung base that was not present on June 10, 2019 as part of an abdominal series. ET tube is in place in good position. Electronically signed by: MARIETTA MYERS (Nov 02, 2019 12:19:09) HISTORY: [Altered mental status] Noncontrast head CT examination. Comparison: None available. Technique: Multiple axial images of the brain were obtained from the skull base to the vertex without administration of IV contrast. Findings: There is moderate sulcal and cisternal prominence as well as atherosclerotic change in the proximal intracranial carotid and vertebral arteries, which is not out of proportion to the patient's stated age. There is diffuse CT density alteration seen in the periventricular white matter of the high and mid-convexity, which is likely in the setting of small vessel disease and not out of proportion to the patient's stated age. There is no pathologic ventricular dilatation or CT imaging evidence for hydrocephalus or herniation syndrome. No midline shift is evident. No acute intraparenchymal hemorrhage or mass can be identified. No extra-axial fluid collections are seen. No alte ration in the attenuation of the brain parenchyma can be identified to suggest acute or subacute ischemic change. However, if clinical symptoms are concerning for an acute CVA, then follow-up MRI with DWI sequencing is recommended. The extracranial structures shows an endotracheal tube in the lower portion of the exam. IMPRESSION: 1. [No acute intracranial process or bleed identified]. 2. [Age-appropriate intra-cranial changes of advancing age]. Electronically signed by: RYNE ARTEAGA III (Nov 02, 2019 12:13:53) EKG Rate: 65 [place]: Normal Rhythm: Afib Block: LBBB Hypertrophy: None ST: Normal Opioid Opioid Risk Tool Age (Jake box if 16-45): No History of Preadolescent Sexual Abuse: No Total: 0 Total Score Risk Category: Low Risk Copyright: [facility] predicting aberrant behaviors Procedures Procedure Comments Procedures: Critical Care time 72 minutes Diagnosis Discharge Problem: AMS (altered mental status), Overdose, Acute UTI, Hypothermia, Aspiration pneumonia, Acidosis, lactic, Acute hyperkalemia ADDITIONAL NOTES Additional Notes Additional Notes: ABG 7.33/50/71/93% on 28%FiO2 Pt. accepted by Dr. Ye at 13
[2019-11-02 11:45] LABS: BASOPHILS % (AUTO) 0.1 % (0.2-1.0); EOSINOPHILS % (AUTO) 0.4 % (0.9-2.9); HEMATOCRIT 33.2 % (36.0-47.0); HEMOGLOBIN 11.4 g/dL (12.0-16.0); LYMPHOCYTES # (AUTO) 1.1 X10^3/uL (1.3-2.9); LYMPHOCYTES % (AUTO) 11.4 % (21.0-51.0); MEAN CORPUSCULAR HEMOGLOBIN 32.1 pg (27.0-34.0); MEAN CORPUSCULAR HGB CONC 34.3 g/dL (33.0-35.0); MEAN CORPUSCULAR VOLUME 93.7 fL (80.0-100.0); MEAN PLATELET VOLUME 7.4 fL (7.4-11.0); MONOCYTES # (AUTO) 0.9 x10^3/uL (0.3-0.8); MONOCYTES % (AUTO) 9.8 % (0.0-13.0); NEUTROPHILS # (AUTO) 7.4 x10^3/uL (2.2-4.8); NEUTROPHILS % (AUTO) 78.3 % (42.0-75.0); PLATELET COUNT 196 X10^3/uL (150.0-450.0); RED BLOOD COUNT 3.54 X10^6/uL (3.5-5.4); RED CELL DISTRIBUTION WIDTH 14.1 % (11.6-16.5); WHITE BLOOD COUNT 9.5 X10^3/uL (3.6-10.0)
[2019-11-02 11:48] LABS: BILIRUBIN,URINE NEGATIVE (NEGATIVE); BLOOD/HEMOGLOBIN,URINE 3+ (NEGATIVE); GLUCOSE, URINE NEGATIVE (NEGATIVE); KETONES,URINE NEGATIVE (NEGATIVE); LEUKOCYTE ESTERASE ,URINE 3+ (NEGATIVE); NITRITES,URINE POSITIVE (NEGATIVE); PROTEIN,URINE 3+ (NEGATIVE); UROBILINOGEN,URINE NORMAL (NORMAL)
[2019-11-02 11:53] LABS: APPEARANCE,URINE CLOUDY (CLEAR); BACTERIA,URINE 1+ /HPF (NEGATIVE); COLOR,URINE YELLOW (YELLOW); SQUAMOUS EPITHELIAL CELL,UR NEGATIVE /HPF (NEGATIVE)
[2019-11-02 11:54] LABS: MUCUS,URINE MODERATE /HPF (NEGATIVE)
[2019-11-02 11:54] LABS: ALBUMIN 2.9 g/dL (3.4-5.0); CALCIUM 8.4 mg/dL (8.5-10.1); CARBON DIOXIDE 32.1 mmol/L (21-32); COR CA(FOR HYPOALB) 9.3 mg/dL (8.5-10.1); CREATININE 1.31 mg/dL (0.55-1.02); TOTAL PROTEIN 6.3 g/dL (6.4-8.2)
[2019-11-02] MEDS ORDERED: ROCEPHIN VIAL 1 GRAM IV ONE (12:11)
--- NOTE | 2019-11-02 12:15 | CT ---
HISTORY: [Altered mental status]Noncontrast head CT examination.Comparison: None available.Technique:Multiple axial images of the brain were obtained from the skull base to the vertex without administration of IV contrast.Findings: There is moderate sulcal and cisternal prominence as well as atherosclerotic change in the proximal intracranial carotid and vertebral arteries, which is not out of proportion to the patient's stated age. There is diffuse CT density alteration seen in the periventricular white matter of the high and mid-convexity, which is likely in the setting of small vessel disease and not out of proportion to the patient's stated age. There is no pathologic ventricular dilatation or CT imaging evidence for hydrocephalus or herniation syndrome. No midline shift is evident. No acute intraparenchymal hemorrhage or mass can be identified. No extra-axial fluid collections are seen. No alteration in the attenuation of the brain parenchyma can be identified to suggest acute or subacute ischemic change. However, if clinical symptoms are concerning for an acute CVA, then follow-up MRI with DWI sequencing is recommended. The extracranial structures shows an endotracheal tube in the lower portion of the exam.IMPRESSION:1. [No acute intracranial process or bleed identified].2. [Age-appropriate intra-cranial changes of advancing age].Electronically signed by: RYNE ARTEAGA III (Nov 02, 2019 12:13:53)
--- NOTE | 2019-11-02 12:20 | RAD ---
HISTORYUNRESPONSIVE, ET TUBE PLACEMENTSTUDYCHEST, 1 VIEWCOMPARISONChest x-ray June 10, 2019FINDINGSThe trachea is midline. An ET tube is in place with the tip 5.6 cm above the tariq. The cardiac silhouette is unremarkable . The lungs are clear without focal infiltrate or effusion. There are mild chronic changes of fibrosis stable in the lung bases ease. There is a minimal superimposed infiltrate in the right lung base. The bony thorax is unremarkable.IMPRESSIONChronic changes in the lung bases but new infiltrate is seen in the right lung base that was not present on June 10, 2019 as part of an abdominal series.ET tube is in place in good position.Electronically signed by: MARIETTA MYERS (Nov 02, 2019 12:19:09)
[2019-11-02 12:27] LABS: ABG BASE EXCESS -0.1 mmol/L (-2.0-2.0); ABG HCO3 26.4 mmol/L (22-26)
[2019-11-02 12:28] LABS: ABG ALLEN TEST POS
[2019-11-02] MEDS ORDERED: NS 100 ML IV 100 ML IV ONE ×2 (12:30→13:38)
[2019-11-02] MEDS ORDERED: ROCEPHIN VIAL 1 GRAM ONE (12:30)
[2019-11-02] MEDS ORDERED: NS 1000 ML 1,000 ML ONE ×2 (12:34→13:37)
[2019-11-02] MEDS ORDERED: NS 1000 ML 1,000 ML IV ONE ×2 (12:37→13:20)
[2019-11-02] MEDS ORDERED: CLEOCIN VIAL 600 MG IV ONE (13:15)
[2019-11-02] MEDS ORDERED: CLEOCIN VIAL 600 MG ONE (13:37)
[2019-11-02] MEDS ORDERED: NS 1000 ML 1,000 ML IV SCH ×2 (14:00→18:00)
--- NOTE | 2019-11-02 14:28 | DR.H&P ---
H&P History & Physical for Day of: H&P Date: 11/02/19 Chief Complaint Chief Complaint: Unresponsive Allergies Allergies Allergy/AdvReac Type Severity Reaction Status Date / Time No Known Drug Allergies Allergy Verified 03/26/19 18:56 History of Present Illness History of Present Illness: Pt is a 84 yo f admitted for suspected overdose. Patient nasally intubated in the field. Per review of history, Pt did not answer phone from family, her brother went over and found her unresponsive. Last known contact 20:30 last night. EMS on arrival found the pt unresponsive, w/ agonal breathing pattern, O2 sats 70's. Pt had pill bottles next to her, temazepam and norco that were empty. Initial labs and imaging: CT head negative, CXR new infiltrate Right lower base. UA c/w infection, UDS:+Benzodiazepines, +Opiates, WBC 9.5, LA 2.4, K:5.6, HCO3 32, Cr 1.31, AB.28/96/51/24. 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 Family History Family Medical History: Cancer and [place] Social History Does patient currently use any type of tobacco product: No Have you used tobacco products in the last 12 months: No Type of Tobacco Use: None Does any household member use tobacco: No Alcohol Use: None Medications Home Medications: No Known Drug Allergies Allergy (Verified 03/26/19 18:56) Labs Result Diagrams: 11/03/19 04:30 11/03/19 04:30 Labs: Laboratory WBC 9.5 X10^3/uL (3.6-10.0) 11/02/19 11:23 RBC 3.54 X10^6/uL (3.5-5.4) 11/02/19 11:23 Hgb 11.4 g/dL (12.0-16.0) L 11/02/19 11:23 Hct 33.2 % (36.0-47.0) L 11/02/19 11:23 MCV 93.7 fL (80.0-100.0) 11/02/19 11:23 MCH 32.1 pg (27.0-34.0) 11/02/19 11:23 MCHC 34.3 g/dL (33.0-35.0) 11/02/19 11:23 RDW 14.1 % (11.6-16.5) 11/02/19 11:23 Plt Count 196 X10^3/uL (150.0-450.0) 11/02/19 11:23 MPV 7.4 fL (7.4-11.0) 11/02/19 11:23 Neut % (Auto) 78.3 % (42.0-75.0) H 11/02/19 11:23 Lymph % (Auto) 11.4 % (21.0-51.0) L 11/02/19 11:23 [place] % (Auto) 9.8 % (0.0-13.0) 11/02/19 11:23 Eos % (Auto) 0.4 % (0.9-2.9) L 11/02/19 11:23 Baso % (Auto) 0.1 % (0.2-1.0) L 11/02/19 11:23 Neut # (Auto) 7.4 x10^3/uL (2.2-4.8) H 11/02/19 11:23 Lymph # (Auto) 1.1 X10^3/uL (1.3-2.9) L 11/02/19 11:23 [place] # (Auto) 0.9 x10^3/uL (0.3-0.8) H 11/02/19 11:23 Eos # (Auto) 0.0 x10^3/uL (0.0-0.2) 11/02/19 11:23 Baso # (Auto) 0.0 X10^3/uL (0.0-0.1) 11/02/19 11:23 Absolute Nucleated RBC 0.0 /100WBC 11/02/19 11:23 Sample Site Lr 11/02/19 12:20 ABG pH 7.330 (7.35-7.45) L 11/02/19 12:20 ABG pCO2 50.0 mmHg (35.0-45.0) H 11/02/19 12:20 ABG pO2 71.0 mmHg (80.0-100.0) L 11/02/19 12:20 ABG HCO3 26.4 mmol/L (22-26) H 11/02/19 12:20 ABG O2 Saturation 93.0 % (90-100) 11/02/19 12:20 ABG Base Excess -0.1 mmol/L (-2.0-2.0) 11/02/19 12:20 Test Pos 11/02/19 12:20 A-a Gradient 66.0 mmHg 11/02/19 12:20 FiO2 28.0 11/02/19 12:20 Blood Gas Comments Pt naif well. cdn 11/02/19 12:20 Sodium 137 mmol/L (136-145) 11/02/19 11:23 Corrected Sodium 137 mmol/L (136-145) 11/02/19 11:23 Potassium 5.6 mmol/L (3.5-5.1) H 11/02/19 11:23 Chloride 103 mmol/L (98-107) 11/02/19 11:23 Carbon Dioxide 32.1 mmol/L (21-32) H 11/02/19 11:23 BUN 13 mg/dL (7-18) 11/02/19 11:23 Creatinine 1.31 mg/dL (0.55-1.02) H 11/02/19 11:23 Est GFR (MDRD) Af Amer 50 (>60) L 11/02/19 11:23 Est GFR (MDRD) Non-Af 41 (>60) L 11/02/19 11:23 Glucose 112 mg/dL (65-99) H 11/02/19 11:23 Lactic Acid 2.4 mmol/L (0.4-2.0) H 11/02/19 12:34 Calcium 8.4 mg/dL (8.5-10.1) L 11/02/19 11:23 Corrected Calcium 9.3 mg/dL (8.5-10.1) 11/02/19 11:23 Total Bilirubin 0.10 mg/dL (0.2-1.0) L 11/02/19 11:23 AST 25 Units/L (15-37) 11/02/19 11:23 ALT 19 Units/L (12-78) 11/02/19 11:23 Alkaline Phosphatase 64 Units/L (46-116) 11/02/19 11:23 Total Protein 6.3 g/dL (6.4-8.2) L 11/02/19 11:23 Albumin 2.9 g/dL (3.4-5.0) L 11/02/19 11:23 Globulin 3.4 g/dL (2.5-4.5) 11/02/19 11:23 Albumin/Globulin Ratio 0.9 Ratio (1.1-2.1) L 11/02/19 11:23 Specimen Type Catherized urine 11/02/19 11:25 Urine Color Yellow (YELLOW) 11/02/19 11:25 Urine Appearance Cloudy (CLEAR) 11/02/19 11:25 Urine pH 5.0 (5.0 - 8.0) 11/02/19 11:25 Ur Specific [place] 1.010 (1.000-1.030) 11/02/19 11:25 Urine Protein 3+ (NEGATIVE) 11/02/19 11:25 Urine Glucose (UA) Negative (NEGATIVE) 11/02/19 11:25 Urine Ketones Negative (NEGATIVE) 11/02/19 11:25 Urine Occult Blood 3+ (NEGATIVE) 11/02/19 11:25 Urine Nitrite Positive (NEGATIVE) 11/02/19 11:25 Urine Bilirubin Negative (NEGATIVE) 11/02/19 11:25 Urine Urobilinogen Normal (NORMAL) 11/02/19 11:25 Ur Leukocyte Esterase 3+ (NEGATIVE) 11/02/19 11:25 Urine RBC 5-10 /HPF (0-3) A 11/02/19 11:25 Urine WBC Tntc /HPF (0-5) A 11/02/19 11:25 Ur Squamous Epith Cells Negative /HPF (NEGATIVE) 11/02/19 11:25 Urine Bacteria 1+ /HPF (NEGATIVE) 11/02/19 11:25 Urine Mucus Moderate /HPF (NEGATIVE) 11/02/19 11:25 Ur Culture Indicated? Yes/culture set up 11/02/19 11:25 Urine Opiates Screen Positive (NEG=<300) A 11/02/19 11:25 Urine Methadone Screen Negative (NEG=<300) 11/02/19 11:25 Ur Barbiturates Screen Negative (NEG=<200) 11/02/19 11:25 Ur Phencyclidine Scrn Negative (NEG=<25) 11/02/19 11:25 Ur Amphetamines Screen Negative (NEG=<1000) 11/02/19 11:25 U Benzodiazepines Scrn Positive (NEG=<200) A 11/02/19 11:25 Urine Cocaine Screen Negative (NEG=<300) 11/02/19 11:25 U Marijuana (THC) Screen Negative (NEG=<50) 11/02/19 11:25 Review of Systems Constitutional: See HPI Eyes: See HPI ENT: See HPI Respiratory: See HPI Cardiovascular: See HPI Gastrointestinal: See HPI Genitourinary: See HPI Musculoskeletal: See HPI Skin: See HPI Neurological: See HPI Physical Exam Vital Signs: Temperature 96.4 F Pulse Rate 56 Respiratory Rate 12 Blood Pressure [Right Arm] 184/79 Blood Pressure 107/51 O2 Sat by Pulse Oximetry 100 Oriented: Unable to test (Intubated ) Eyes: Other (Left pupil cataract, Right pupil reactive to light ) Ear: Normal Nose: Other (nasal tube placed) Throat: Other Respiratory: Clear Throughout Cardiovascular: Bradycardia : Normal Auscultation: Bowel Sounds: Normal Palpation: Normal Tenderness: Normal Skin: Normal Psychiatric: Other Assessment/Plan (1) Acute respiratory failure: Status: Acute Plan: Pt with nasal intubation. Assessed and evaluated patient, respiratory therapy and ICU nurse present. Administered flumazenil that allowed patient to immediately become more responsive. Attempt to remove Nasal intubation tube successful. Pt placed on Bipap with ABG ordered in one hour for reevaluation. Critical care time spent 30-74 minutes. (2) Overdose: Status: Acute (3) Sepsis: Status: Acute (4) AMS (altered mental status): Status: Acute (5) Acidosis, lactic: Status: Acute (6) Hypothermia: Status: Acute (7) Acute UTI: Status: Acute (8) Aspiration pneumonia: Status: Acute (9) Hyperkalemia: Status: Acute (10) Acute renal failure: Status: Acute Review H&P Reviewed: Yes Patient was examined?: Yes
[2019-11-02 14:40] LABS: ABG BASE EXCESS -3.2 mmol/L (-2.0-2.0)
[2019-11-02] MEDS ORDERED: TUSSIONEX PENNKINETIC SUSP PO PRN (14:57)
[2019-11-02] MEDS ORDERED: NS 1/2 1000 ML IV 1,000 ML IV SCH (15:00)
[2019-11-02 15:45] VITALS: BMI 18.9
[2019-11-02] MEDS ORDERED: ROMAZICON INJ 0.5 MG ONE (16:11)
[2019-11-02] MEDS ORDERED: ROBITUSSIN DM PO SCH (17:00)
[2019-11-02] MEDS: XOPENEX 1.25 MG/3 ML NEBULE NEB SCH (17:15)
[2019-11-02 18:28] LABS: ABG BASE EXCESS -2.4 mmol/L (-2.0-2.0); ABG HCO3 24.9 mmol/L (22-26)
[2019-11-02] MEDS ORDERED: ROMAZICON INJ 0.5 MG IVP ONE ×2 (18:32→19:03)
[2019-11-02] MEDS: ZOSYN VIAL 3.375 GRAMS 3.375 G in NS 100 ML IV + SPIKE MINIBAG* 100 ML IV SCH ×2 (19:21→22:34)
[2019-11-02] MEDS ORDERED: NS 50 ML IV + SPIKE MINIBAG* 50 ML IV ONE (19:37)
[2019-11-02 20:35] LABS: ABG BASE EXCESS -1.3 mmol/L (-2.0-2.0); ABG HCO3 24.3 mmol/L (22-26)
[2019-11-02 20:36] LABS: ABG ALLEN TEST POS
[2019-11-02] MEDS: BETAXOLOL AFFEYE SCH (21:00)
[2019-11-02] MEDS ORDERED: ROCEPHIN VIAL 1 GRAM IV SCH (21:00)
[2019-11-02] MEDS: LUMIGAN OPHTH RIGHTEYE SCH (21:00)
[2019-11-02] MEDS ORDERED: CLEOCIN 600 MG IV PREMIX 600 MG/50 ML BAG IV SCH (22:00)
[2019-11-03] MEDS: NS 1000 ML 1,000 ML IV SCH ×3 (00:26→18:04)
[2019-11-03] MEDS: XOPENEX 1.25 MG/3 ML NEBULE NEB SCH ×4 (00:58→18:14)
[2019-11-03 05:45] LABS: BASOPHILS % (AUTO) 0.2 % (0.2-1.0); EOSINOPHILS # (AUTO) 0.1 x10^3/uL (0.0-0.2); EOSINOPHILS % (AUTO) 0.9 % (0.9-2.9); HEMATOCRIT 27.4 % (36.0-47.0); LYMPHOCYTES # (AUTO) 1.4 X10^3/uL (1.3-2.9); LYMPHOCYTES % (AUTO) 14.7 % (21.0-51.0); MEAN CORPUSCULAR HEMOGLOBIN 32.8 pg (27.0-34.0); MEAN CORPUSCULAR HGB CONC 34.4 g/dL (33.0-35.0); MEAN CORPUSCULAR VOLUME 95.1 fL (80.0-100.0); MEAN PLATELET VOLUME 8.6 fL (7.4-11.0); MONOCYTES % (AUTO) 10.2 % (0.0-13.0); PLATELET COUNT 144 X10^3/uL (150.0-450.0); RED BLOOD COUNT 2.88 X10^6/uL (3.5-5.4); WHITE BLOOD COUNT 9.5 X10^3/uL (3.6-10.0)
[2019-11-03] MEDS: ZOSYN VIAL 3.375 GRAMS 3.375 G in NS 100 ML IV + SPIKE MINIBAG* 100 ML IV SCH ×3 (05:47→22:00)
[2019-11-03 05:59] LABS: ALANINE AMINOTRANSFERASE 49 Units/L (12-78); ALBUMIN 2.5 g/dL (3.4-5.0); ALKALINE PHOSPHATASE 53 Units/L (46-116); ASPARTATE AMINO TRANSFERASE 53 Units/L (15-37); BLOOD UREA NITROGEN 15 mg/dL (7-18); CALCIUM 7.8 mg/dL (8.5-10.1); CARBON DIOXIDE 25.3 mmol/L (21-32); CHLORIDE 104 mmol/L (98-107); CREATININE 1.06 mg/dL (0.55-1.02); SODIUM 137 mmol/L (136-145); TOTAL PROTEIN 5.3 g/dL (6.4-8.2); eGFR NON BLACK RACES 52 (>60)
[2019-11-03 06:21] LABS: HEMOGLOBIN 9.4 g/dL (12.0-16.0)
--- NOTE | 2019-11-03 08:42 | PCM.PROG ---
Progress Note Progress Note for Day of Date of Exam: 11/03/19 Subjective Subjective: Pt is an 84 yo admitted for acute respiratory failure, overdose, sepsis d/t uti, aspiration pneumonia, and acute renal failure. Yesterday, she was able to be extubated after receiving flumazenil. She is more alert and oriented today. Her vitals are stable. Breathing unlabored, O2sat 100%. She is c/o right elbow pain, will get XR today as well as CXR d/t CT chest suggestive aspiration pneumonia. Her UA c/w infection. Cr:1.31>1.06; She is on abx:Zosyn. BloodCx and UrineCx pending. Will have speech therapy evaluate and can start soft diet if tolerated. Will continue to monitor and follow up labs in morning. Past Medical Family Social History Past Med/Fam/Surg Hx: No changes since H&P Allergies: Allergies No Known Drug Allergies Allergy (Verified 03/26/19 18:56) Review of Systems ROS: No change since H&P Vital Signs and I&O's Vital Signs: Temperature 98.6 F Pulse Rate [Left Radial] 56 Pulse Rate 79 Respiratory Rate 28 Blood Pressure [Right Arm] 95/52 Blood Pressure 140/65 O2 Sat by Pulse Oximetry 100 Intake and Output: Intake & Output 10/31/19 11/01/19 11/02/19 11/03/19 23:59 23:59 23:59 23:59 Intake Total 938 / 938 934 / 934 Output Total 310 / 310 390 / 390 Balance 628 / 628 544 / 544 Physical Exam Oriented: Normal Eyes: Other (Left pupil cataract, Right pupil reactive to light ) Ear: Normal Nose: Normal Throat: Normal Cardiovascular: Normal : Normal Auscultation: Bowel Sounds: Normal Tenderness: Normal Skin: Normal Psychiatric: Normal Speech Pattern: Appropriate Laboratory and Diagnostics Result Diagrams: 11/03/19 04:30 11/03/19 04:30 Labs: Laboratory WBC 9.5 X10^3/uL (3.6-10.0) 11/03/19 04:30 RBC 2.88 X10^6/uL (3.5-5.4) L 11/03/19 04:30 Hgb 9.4 g/dL (12.0-16.0) L D 11/03/19 04:30 Hct 27.4 % (36.0-47.0) L 11/03/19 04:30 MCV 95.1 fL (80.0-100.0) 11/03/19 04:30 MCH 32.8 pg (27.0-34.0) 11/03/19 04:30 MCHC 34.4 g/dL (33.0-35.0) 11/03/19 04:30 RDW 14.0 % (11.6-16.5) 11/03/19 04:30 Plt Count 144 X10^3/uL (150.0-450.0) L 11/03/19 04:30 MPV 8.6 fL (7.4-11.0) 11/03/19 04:30 Neut % (Auto) 74.0 % (42.0-75.0) 11/03/19 04:30 Lymph % (Auto) 14.7 % (21.0-51.0) L 11/03/19 04:30 [place] % (Auto) 10.2 % (0.0-13.0) 11/03/19 04:30 Eos % (Auto) 0.9 % (0.9-2.9) 11/03/19 04:30 Baso % (Auto) 0.2 % (0.2-1.0) 11/03/19 04:30 Neut # (Auto) 7.0 x10^3/uL (2.2-4.8) H 11/03/19 04:30 Lymph # (Auto) 1.4 X10^3/uL (1.3-2.9) 11/03/19 04:30 [place] # (Auto) 1.0 x10^3/uL (0.3-0.8) H 11/03/19 04:30 Eos # (Auto) 0.1 x10^3/uL (0.0-0.2) 11/03/19 04:30 Baso # (Auto) 0.0 X10^3/uL (0.0-0.1) 11/03/19 04:30 Absolute Nucleated RBC 0.2 /100WBC 11/03/19 04:30 Sample Site Lr 11/02/19 20:30 ABG pH 7.360 (7.35-7.45) 11/02/19 20:30 ABG pCO2 43.0 mmHg (35.0-45.0) 11/02/19 20:30 ABG pO2 134.0 mmHg (80.0-100.0) H 11/02/19 20:30 ABG HCO3 24.3 mmol/L (22-26) 11/02/19 20:30 ABG O2 Saturation 99.0 % (90-100) 11/02/19 20:30 ABG Base Excess -1.3 mmol/L (-2.0-2.0) 11/02/19 20:30 Test Pos 11/02/19 20:30 A-a Gradient 12.0 mmHg 11/02/19 20:30 FiO2 28.0 11/02/19 20:30 Blood Gas Comments Tessy well ae 11/02/19 20:30 Sodium 137 mmol/L (136-145) 11/03/19 04:30 Corrected Sodium TNP 11/03/19 04:30 Potassium 3.9 mmol/L (3.5-5.1) 11/03/19 04:30 Chloride 104 mmol/L (98-107) 11/03/19 04:30 Carbon Dioxide 25.3 mmol/L (21-32) 11/03/19 04:30 BUN 15 mg/dL (7-18) 11/03/19 04:30 Creatinine 1.06 mg/dL (0.55-1.02) H 11/03/19 04:30 Est GFR (MDRD) Af Amer > 60 (>60) 11/03/19 04:30 Est GFR (MDRD) Non-Af 52 (>60) L 11/03/19 04:30 Glucose 72 mg/dL (65-99) 11/03/19 04:30 Lactic Acid 1.3 mmol/L (0.4-2.0) 11/02/19 16:10 Calcium 7.8 mg/dL (8.5-10.1) L 11/03/19 04:30 Corrected Calcium 9.0 mg/dL (8.5-10.1) 11/03/19 04:30 Total Bilirubin 0.30 mg/dL (0.2-1.0) 11/03/19 04:30 AST 53 Units/L (15-37) H 11/03/19 04:30 ALT 49 Units/L (12-78) 11/03/19 04:30 Alkaline Phosphatase 53 Units/L (46-116) 11/03/19 04:30 Total Protein 5.3 g/dL (6.4-8.2) L 11/03/19 04:30 Albumin 2.5 g/dL (3.4-5.0) L 11/03/19 04:30 Globulin 2.8 g/dL (2.5-4.5) 11/03/19 04:30 Albumin/Globulin Ratio 0.9 Ratio (1.1-2.1) L 11/03/19 04:30 Specimen Type Catherized urine 11/02/19 11:25 Urine Color Yellow (YELLOW) 11/02/19 11:25 Urine Appearance Cloudy (CLEAR) 11/02/19 11:25 Urine pH 5.0 (5.0 - 8.0) 11/02/19 11:25 Ur Specific [place] 1.010 (1.000-1.030) 11/02/19 11:25 Urine Protein 3+ (NEGATIVE) 11/02/19 11:25 Urine Glucose (UA) Negative (NEGATIVE) 11/02/19 11:25 Urine Ketones Negative (NEGATIVE) 11/02/19 11:25 Urine Occult Blood 3+ (NEGATIVE) 11/02/19 11:25 Urine Nitrite Positive (NEGATIVE) 11/02/19 11:25 Urine Bilirubin Negative (NEGATIVE) 11/02/19 11:25 Urine Urobilinogen Normal (NORMAL) 11/02/19 11:25 Ur Leukocyte Esterase 3+ (NEGATIVE) 11/02/19 11:25 Urine RBC 5-10 /HPF (0-3) A 11/02/19 11:25 Urine WBC Tntc /HPF (0-5) A 11/02/19 11:25 Ur Squamous Epith Cells Negative /HPF (NEGATIVE) 11/02/19 11:25 Urine Bacteria 1+ /HPF (NEGATIVE) 11/02/19 11:25 Urine Mucus Moderate /HPF (NEGATIVE) 11/02/19 11:25 Ur Culture Indicated? Yes/culture set up 11/02/19 11:25 Urine Opiates Screen Positive (NEG=<300) A 11/02/19 11:25 Urine Methadone Screen Negative (NEG=<300) 11/02/19 11:25 Ur Barbiturates Screen Negative (NEG=<200) 11/02/19 11:25 Ur Phencyclidine Scrn Negative (NEG=<25) 11/02/19 11:25 Ur Amphetamines Screen Negative (NEG=<1000) 11/02/19 11:25 U Benzodiazepines Scrn Positive (NEG=<200) A 11/02/19 11:25 Urine Cocaine Screen Negative (NEG=<300) 11/02/19 11:25 U Marijuana (THC) Screen Negative (NEG=<50) 11/02/19 11:25 Plan (1) Overdose: Status: Acute (2) Acute respiratory failure: Status: Acute Plan: Intubated via nasal intubation(11/02/19) and Extubated(11/02/19) (3) Sepsis: Status: Acute (4) AMS (altered mental status): Status: Acute (5) Acidosis, lactic: Status: Acute (6) Hypothermia: Status: Acute (7) Acute UTI: Status: Acute (8) Aspiration pneumonia: Status: Acute (9) Hyperkalemia: Status: Acute (10) Acute renal failure: Status: Acute
[2019-11-03] MEDS: COREG TAB 12.5 MG PO SCH ×2 (08:58→20:41)
[2019-11-03] MEDS: LINZESS PO SCH (08:58)
[2019-11-03] MEDS: PROTONIX TAB 40 MG PO SCH (08:58)
[2019-11-03] MEDS: PROzac PO SCH ×2 (08:58→20:41)
[2019-11-03] MEDS: PEPCID TAB 20 MG PO SCH (08:59)
[2019-11-03] MEDS: BETAXOLOL AFFEYE SCH ×2 (08:59→20:41)
--- NOTE | 2019-11-03 10:16 | RAD ---
HISTORYASPIRATIONSTUDYPortable AP chestCOMPARISONFebruary 2019FINDINGSThe lungs are grossly clear and unchanged. The heart and mediastinum are unremarkable. There is no edema or effusion. Endotracheal tube is apparently been removed.IMPRESSIONNo evidence for acute cardiopulmonary diseaseElectronically signed by: AMANDA JOHNSON (Nov 03, 2019 10:14:50)
[2019-11-03] MEDS: LOVENOX INJ 40 MG SYR SC SCH (10:37)
--- NOTE | 2019-11-03 16:36 | RAD ---
HISTORYRT ELBOW PAINSTUDYELBOW, RIGHT x-ray, three viewsCOMPARISONNoneFINDINGSAnterior sail sign but no posterior sail sign. Tiny calcific density is seen adjacent to the coronoid process without a donor site. This is probable arthritic calcification. Tiny calcified loose body is not excluded. Likely mild arthritic changes in the elbow. No fracture or dislocation is seen.IMPRESSIONMild arthritic changes. Possible associated arthritic calcifications but a tiny calcified loose body is not excluded. Possible joint effusion.Electronically signed by: Jose Manuel Donovan (Nov 03, 2019 16:34:29)
[2019-11-03] MEDS: LUMIGAN OPHTH RIGHTEYE SCH (20:41)
[2019-11-04] MEDS: XOPENEX 1.25 MG/3 ML NEBULE NEB SCH ×4 (00:50→18:05)
[2019-11-04] MEDS: NS 1000 ML 1,000 ML IV SCH ×3 (02:30→15:51)
[2019-11-04] MEDS: ZOSYN VIAL 3.375 GRAMS 3.375 G in NS 100 ML IV + SPIKE MINIBAG* 100 ML IV SCH (05:35)
[2019-11-04 05:44] LABS: BASOPHILS % (AUTO) 0.2 % (0.2-1.0); EOSINOPHILS # (AUTO) 0.1 x10^3/uL (0.0-0.2); EOSINOPHILS % (AUTO) 0.9 % (0.9-2.9); HEMATOCRIT 31.8 % (36.0-47.0); HEMOGLOBIN 11.3 g/dL (12.0-16.0); LYMPHOCYTES # (AUTO) 1.2 X10^3/uL (1.3-2.9); LYMPHOCYTES % (AUTO) 12.2 % (21.0-51.0); MEAN CORPUSCULAR HGB CONC 35.4 g/dL (33.0-35.0); MEAN CORPUSCULAR VOLUME 93.2 fL (80.0-100.0); MEAN PLATELET VOLUME 8.4 fL (7.4-11.0); MONOCYTES # (AUTO) 0.8 x10^3/uL (0.3-0.8); MONOCYTES % (AUTO) 8.4 % (0.0-13.0); NEUTROPHILS # (AUTO) 7.7 x10^3/uL (2.2-4.8); NEUTROPHILS % (AUTO) 78.3 % (42.0-75.0); PLATELET COUNT 148 X10^3/uL (150.0-450.0); RED BLOOD COUNT 3.41 X10^6/uL (3.5-5.4); WHITE BLOOD COUNT 9.8 X10^3/uL (3.6-10.0)
[2019-11-04 05:47] LABS: ALANINE AMINOTRANSFERASE 245 Units/L (12-78); ALBUMIN 2.4 g/dL (3.4-5.0); ALKALINE PHOSPHATASE 67 Units/L (46-116); ASPARTATE AMINO TRANSFERASE 207 Units/L (15-37); BLOOD UREA NITROGEN 9 mg/dL (7-18); CALCIUM 7.7 mg/dL (8.5-10.1); CARBON DIOXIDE 23.3 mmol/L (21-32); CHLORIDE 102 mmol/L (98-107); CREATININE 0.83 mg/dL (0.55-1.02); SODIUM 135 mmol/L (136-145); TOTAL PROTEIN 5.6 g/dL (6.4-8.2); eGFR NON BLACK RACES > 60 (>60)
[2019-11-04] MEDS: BETAXOLOL AFFEYE SCH ×2 (08:58→21:00)
[2019-11-04] MEDS: COREG TAB 12.5 MG PO SCH ×2 (08:59→21:00)
[2019-11-04] MEDS: LINZESS PO SCH (08:59)
[2019-11-04] MEDS: LOVENOX INJ 40 MG SYR SC SCH (09:00)
[2019-11-04] MEDS: PEPCID TAB 20 MG PO SCH (09:00)
[2019-11-04] MEDS: PROTONIX TAB 40 MG PO SCH (09:04)
[2019-11-04] MEDS: PROzac PO SCH (09:05)
[2019-11-04] MEDS ORDERED: POTASSIUM CHL 60 MEQ/NS 0.45% 500 ML IV PRN (09:45)
[2019-11-04] MEDS ORDERED: POTASSIUM CHLORIDE LIQ 20 MEQ UDC PO PRN (09:45)
[2019-11-04] MEDS ORDERED: K-DUR TAB 20 MEQ PO PRN (09:45)
[2019-11-04] MEDS ORDERED: POTASSIUM CHL 40 MEQ/NS 0.45% 500 ML IV PRN (09:45)
[2019-11-04] MEDS ORDERED: MICRO K EXTEN CAP 10 MEQ PO PRN (09:45)
[2019-11-04] MEDS ORDERED: KLOR-CON PO PRN (09:45)
[2019-11-04] MEDS: MAGNESIUM SULFATE 1 GRAM/100 mL PREMIX 1 GM/100 ML BAG IV PRN ×6 (10:18→16:55)
--- NOTE | 2019-11-04 12:19 | PCM.PROG ---
Progress Note Progress Note for Day of Date of Exam: 11/04/19 Subjective Subjective: Pt is an 84 yo admitted for acute respiratory failure, overdose, sepsis d/t uti, aspiration pneumonia, and acute renal failure. Pt in bed alert, able to comprehend questions, but is having difficulty with speech and answering. Discussed with family member who states that pt was able to previ ously do things on her own such as driving, conversing, and taking care of self. She lives alone but has son that visits. They did note that she has hx of depression. PT seeing pt at this time, will follow note and recs. Speech therapy to thicken diet, will review recs. Her vitals are stable. Breathing unlabored, O2sat 100%. XR elbow to evaluate pain had findings of mild arthritic change, tiny calcified loose body. CXR negative. Her UA c/w infection. Cr:1.31>1.06; She is on abx:Zosyn. UrineCx positive for E.coli, susc to Rocephin, will change abx. BloodCx pending. Will get MRI brain d/t weakness and difficulty speaking. Her K and Mag is low, will replete. Liver enzymes have increased, will get U/S to evaluate. Will continue to monitor and follow up labs in morning. Past Medical Family Social History Past Med/Fam/Surg Hx: No changes since H&P Allergies: Allergies No Known Drug Allergies Allergy (Verified 03/26/19 18:56) Review of Systems ROS: No change since H&P Vital Signs and I&O's Vital Signs: Temperature 97.5 F Pulse Rate [Left Radial] 56 Pulse Rate 81 Respiratory Rate 32 Blood Pressure [Right Arm] 95/52 Blood Pressure 157/74 O2 Sat by Pulse Oximetry 97 Intake and Output: Intake & Output 11/01/19 11/02/19 11/03/19 11/04/19 23:59 23:59 23:59 23:59 Intake Total 938 / 938 3536 / 3536 1006 / 1006 Output Total 310 / 310 2790 / 2790 900 / 900 Balance 628 / 628 746 / 746 106 / 106 Physical Exam Oriented: Normal Eyes: Other (Left pupil cataract, Right pupil reactive to light ) Ear: Normal Nose: Normal Throat: Normal Respiratory: Normal Cardiovascular: Normal : Normal Auscultation: Bowel Sounds: Normal Tenderness: Normal Skin: Normal Psychiatric: Normal Speech Pattern: Unclear Laboratory and Diagnostics Result Diagrams: 11/04/19 04:44 11/04/19 04:44 Labs: 11/02/19 11:25 Urine,Catheterized Urine Culture - Final Escherichia Coli Laboratory WBC 9.8 X10^3/uL (3.6-10.0) 11/04/19 04:44 RBC 3.41 X10^6/uL (3.5-5.4) L 11/04/19 04:44 Hgb 11.3 g/dL (12.0-16.0) L 11/04/19 04:44 Hct 31.8 % (36.0-47.0) L 11/04/19 04:44 MCV 93.2 fL (80.0-100.0) 11/04/19 04:44 MCH 33.0 pg (27.0-34.0) 11/04/19 04:44 MCHC 35.4 g/dL (33.0-35.0) H 11/04/19 04:44 RDW 14.0 % (11.6-16.5) 11/04/19 04:44 Plt Count 148 X10^3/uL (150.0-450.0) L 11/04/19 04:44 MPV 8.4 fL (7.4-11.0) 11/04/19 04:44 Neut % (Auto) 78.3 % (42.0-75.0) H 11/04/19 04:44 Lymph % (Auto) 12.2 % (21.0-51.0) L 11/04/19 04:44 [place] % (Auto) 8.4 % (0.0-13.0) 11/04/19 04:44 Eos % (Auto) 0.9 % (0.9-2.9) 11/04/19 04:44 Baso % (Auto) 0.2 % (0.2-1.0) 11/04/19 04:44 Neut # (Auto) 7.7 x10^3/uL (2.2-4.8) H 11/04/19 04:44 Lymph # (Auto) 1.2 X10^3/uL (1.3-2.9) L 11/04/19 04:44 [place] # (Auto) 0.8 x10^3/uL (0.3-0.8) 11/04/19 04:44 Eos # (Auto) 0.1 x10^3/uL (0.0-0.2) 11/04/19 04:44 Baso # (Auto) 0.0 X10^3/uL (0.0-0.1) 11/04/19 04:44 Absolute Nucleated RBC 0.0 /100WBC 11/04/19 04:44 Sample Site Lr 11/02/19 20:30 ABG pH 7.360 (7.35-7.45) 11/02/19 20:30 ABG pCO2 43.0 mmHg (35.0-45.0) 11/02/19 20:30 ABG pO2 134.0 mmHg (80.0-100.0) H 11/02/19 20:30 ABG HCO3 24.3 mmol/L (22-26) 11/02/19 20:30 ABG O2 Saturation 99.0 % (90-100) 11/02/19 20:30 ABG Base Excess -1.3 mmol/L (-2.0-2.0) 11/02/19 20:30 Test Pos 11/02/19 20:30 A-a Gradient 12.0 mmHg 11/02/19 20:30 FiO2 28.0 11/02/19 20:30 Blood Gas Comments Tessy well ae 11/02/19 20:30 Sodium 135 mmol/L (136-145) L 11/04/19 04:44 Corrected Sodium TNP 11/04/19 04:44 Potassium 3.3 mmol/L (3.5-5.1) L 11/04/19 04:44 Chloride 102 mmol/L (98-107) 11/04/19 04:44 Carbon Dioxide 23.3 mmol/L (21-32) 11/04/19 04:44 BUN 9 mg/dL (7-18) 11/04/19 04:44 Creatinine 0.83 mg/dL (0.55-1.02) 11/04/19 04:44 Est GFR (MDRD) Af Amer > 60 (>60) 11/04/19 04:44 Est GFR (MDRD) Non-Af > 60 (>60) 11/04/19 04:44 Glucose 84 mg/dL (65-99) 11/04/19 04:44 Lactic Acid 1.3 mmol/L (0.4-2.0) 11/02/19 16:10 Calcium 7.7 mg/dL (8.5-10.1) L 11/04/19 04:44 Corrected Calcium 9.0 mg/dL (8.5-10.1) 11/04/19 04:44 Magnesium 1.1 mg/dL (1.7-2.9) L 11/04/19 04:44 Total Bilirubin 0.70 mg/dL (0.2-1.0) 11/04/19 04:44 AST 207 Units/L (15-37) H 11/04/19 04:44 ALT 245 Units/L (12-78) H 11/04/19 04:44 Alkaline Phosphatase 67 Units/L (46-116) 11/04/19 04:44 Total Protein 5.6 g/dL (6.4-8.2) L 11/04/19 04:44 Albumin 2.4 g/dL (3.4-5.0) L 11/04/19 04:44 Globulin 3.2 g/dL (2.5-4.5) 11/04/19 04:44 Albumin/Globulin Ratio 0.8 Ratio (1.1-2.1) L 11/04/19 04:44 Specimen Type Catherized urine 11/02/19 11:25 Urine Color Yellow (YELLOW) 11/02/19 11:25 Urine Appearance Cloudy (CLEAR) 11/02/19 11:25 Urine pH 5.0 (5.0 - 8.0) 11/02/19 11:25 Ur Specific [place] 1.010 (1.000-1.030) 11/02/19 11:25 Urine Protein 3+ (NEGATIVE) 11/02/19 11:25 Urine Glucose (UA) Negative (NEGATIVE) 11/02/19 11:25 Urine Ketones Negative (NEGATIVE) 11/02/19 11:25 Urine Occult Blood 3+ (NEGATIVE) 11/02/19 11:25 Urine Nitrite Positive (NEGATIVE) 11/02/19 11:25 Urine Bilirubin Negative (NEGATIVE) 11/02/19 11:25 Urine Urobilinogen Normal (NORMAL) 11/02/19 11:25 Ur Leukocyte Esterase 3+ (NEGATIVE) 11/02/19 11:25 Urine RBC 5-10 /HPF (0-3) A 11/02/19 11:25 Urine WBC Tntc /HPF (0-5) A 11/02/19 11:25 Ur Squamous Epith Cells Negative /HPF (NEGATIVE) 11/02/19 11:25 Urine Bacteria 1+ /HPF (NEGATIVE) 11/02/19 11:25 Urine Mucus Moderate /HPF (NEGATIVE) 11/02/19 11:25 Ur Culture Indicated? Yes/culture set up 11/02/19 11:25 Urine Opiates Screen Positive (NEG=<300) A 11/02/19 11:25 Urine Methadone Screen Negative (NEG=<300) 11/02/19 11:25 Ur Barbiturates Screen Negative (NEG=<200) 11/02/19 11:25 Ur Phencyclidine Scrn Negative (NEG=<25) 11/02/19 11:25 Ur Amphetamines Screen Negative (NEG=<1000) 11/02/19 11:25 U Benzodiazepines Scrn Positive (NEG=<200) A 11/02/19 11:25 Urine Cocaine Screen Negative (NEG=<300) 11/02/19 11:25 U Marijuana (THC) Screen Negative (NEG=<50) 11/02/19 11:25 Plan (1) Overdose: Status: Acute (2) Acute UTI: Status: Acute Plan: UrineCx:E.coli Zosyn>changed to Rocephin (3) Elevated liver enzymes: Status: Acute Plan: AST:53>207 ALT:49>245 T. bili:0.7 Liver U/S to evaluate, continue to trend (4) Aspiration pneumonia: Status: Acute Plan: Possible, seen on CT, however repeat CXR negative. (5) Hypomagnesemia: Status: Acute (6) Hypokalemia: Status: Acute (7) Acute renal failure: Status: Acute Plan: Cr normalized (8) Hyperkalemia: Status: Acute (9) Hypothermia: Status: Acute Plan: normalized (10) Acidosis, lactic: Status: Acute (11) AMS (altered mental status): Status: Acute (12) Sepsis: Status: Acute (13) Acute respiratory failure: Status: Acute Plan: Intubated via nasal intubation(11/02/19) and Extubated(11/02/19)
[2019-11-04] MEDS: ROCEPHIN VIAL 1 GRAM 1 G in NS 100 ML IV + SPIKE MINIBAG* 100 ML IV SCH (13:00)
[2019-11-04] MEDS: VOLTAREN 1 % GEL MULTI DOSE TUBE TOP SCH ×2 (15:53→21:52)
[2019-11-04] MEDS: K-RIDER 10 MEQ/NS 100 ML 10 MEQ/100 ML BAG IV PRN ×3 (17:24→19:44)
[2019-11-04] MEDS: ALDACTONE TAB 25 MG PO SCH (17:43)
[2019-11-04] MEDS: LUMIGAN OPHTH RIGHTEYE SCH (21:00)
[2019-11-05] MEDS: XOPENEX 1.25 MG/3 ML NEBULE NEB SCH ×4 (00:49→16:31)
[2019-11-05] MEDS: NS 1000 ML 1,000 ML IV SCH ×4 (05:47→23:30)
[2019-11-05] MEDS: VOLTAREN 1 % GEL MULTI DOSE TUBE TOP SCH ×3 (06:04→22:00)
[2019-11-05 06:07] LABS: BASOPHILS % (AUTO) 0.2 % (0.2-1.0); EOSINOPHILS # (AUTO) 0.2 x10^3/uL (0.0-0.2); EOSINOPHILS % (AUTO) 2.1 % (0.9-2.9); HEMATOCRIT 30.7 % (36.0-47.0); HEMOGLOBIN 10.8 g/dL (12.0-16.0); LYMPHOCYTES # (AUTO) 1.1 X10^3/uL (1.3-2.9); MEAN CORPUSCULAR HEMOGLOBIN 32.5 pg (27.0-34.0); MEAN CORPUSCULAR HGB CONC 35.2 g/dL (33.0-35.0); MEAN CORPUSCULAR VOLUME 92.4 fL (80.0-100.0); MEAN PLATELET VOLUME 7.8 fL (7.4-11.0); MONOCYTES % (AUTO) 9.6 % (0.0-13.0); NEUTROPHILS # (AUTO) 7.7 x10^3/uL (2.2-4.8); NEUTROPHILS % (AUTO) 77.1 % (42.0-75.0); PLATELET COUNT 153 X10^3/uL (150.0-450.0); RED BLOOD COUNT 3.33 X10^6/uL (3.5-5.4); RED CELL DISTRIBUTION WIDTH 14.1 % (11.6-16.5)
[2019-11-05 06:22] LABS: ALANINE AMINOTRANSFERASE 571 Units/L (12-78); ALBUMIN 2.3 g/dL (3.4-5.0); ALKALINE PHOSPHATASE 66 Units/L (46-116); ASPARTATE AMINO TRANSFERASE 354 Units/L (15-37); BLOOD UREA NITROGEN 6 mg/dL (7-18); CARBON DIOXIDE 25.4 mmol/L (21-32); CHLORIDE 105 mmol/L (98-107); COR CA(FOR HYPOALB) 9.4 mg/dL (8.5-10.1); CREATININE 0.69 mg/dL (0.55-1.02); MAGNESIUM 1.9 mg/dL (1.7-2.9); SODIUM 138 mmol/L (136-145); TOTAL PROTEIN 5.6 g/dL (6.4-8.2); eGFR NON BLACK RACES > 60 (>60)
--- NOTE | 2019-11-05 09:07 | PCM.PROG ---
Progress Note Progress Note for Day of Date of Exam: 11/05/19 Subjective Subjective: Pt is an 84 yo admitted for acute respiratory failure, overdose, sepsis d/t uti, aspiration pneumonia, and acute renal failure. Pt is looks a little better this morning, sitting up in bed, her voice has slightly improved, likely d/t intubation. Her strength is greatly diminished, however is slowly improving. She will likely need PT evaluation for rehab placement. Her vitals are stable. Breathing unlabored, O2sat 100%. Her antibiotics were changed to Rocephin for UrineCx positive for E.coli. BloodCx pending. MRI brain and U/S liver pending. Liver enzymes continue to rise, however believe to be related to shock liver, continue to trend. Her K and Mag is low, will replete. Will continue to monitor and follow up labs in morning. Past Medical Family Social History Past Med/Fam/Surg Hx: No changes since H&P Allergies: Allergies No Known Drug Allergies Allergy (Verified 03/26/19 18:56) Review of Systems ROS: No change since H&P Vital Signs and I&O's Vital Signs: Temperature 98.7 F Pulse Rate [Left Radial] 56 Pulse Rate 68 Respiratory Rate 20 Blood Pressure [Right Arm] 95/52 Blood Pressure 164/77 O2 Sat by Pulse Oximetry 99 Intake and Output: Intake & Output 11/02/19 11/03/19 11/04/19 11/05/19 23:59 23:59 23:59 23:59 Intake Total 938 / 938 3536 / 3536 3029 / 3029 794 / 794 Output Total 310 / 310 2790 / 2790 2828 / 2828 620 / 620 Balance 628 / 628 746 / 746 201 / 201 174 / 174 Physical Exam Oriented: Normal Eyes: Other (Left pupil cataract, Right pupil reactive to light ) Ear: Normal Nose: Normal Throat: Normal Respiratory: Normal Cardiovascular: Normal : Normal Auscultation: Bowel Sounds: Normal Tenderness: Normal Skin: Normal Psychiatric: Normal Speech Pattern: Appropriate Laboratory and Diagnostics Result Diagrams: 11/05/19 05:17 11/05/19 05:17 Labs: 11/02/19 12:34 Blood Blood Culture - Preliminary 11/02/19 12:28 Blood Blood Culture - Preliminary 11/02/19 11:25 Urine,Catheterized Urine Culture - Final Escherichia Coli Laboratory WBC 10.0 X10^3/uL (3.6-10.0) 11/05/19 05:17 RBC 3.33 X10^6/uL (3.5-5.4) L 11/05/19 05:17 Hgb 10.8 g/dL (12.0-16.0) L 11/05/19 05:17 Hct 30.7 % (36.0-47.0) L 11/05/19 05:17 MCV 92.4 fL (80.0-100.0) 11/05/19 05:17 MCH 32.5 pg (27.0-34.0) 11/05/19 05:17 MCHC 35.2 g/dL (33.0-35.0) H 11/05/19 05:17 RDW 14.1 % (11.6-16.5) 11/05/19 05:17 Plt Count 153 X10^3/uL (150.0-450.0) 11/05/19 05:17 MPV 7.8 fL (7.4-11.0) 11/05/19 05:17 Neut % (Auto) 77.1 % (42.0-75.0) H 11/05/19 05:17 Lymph % (Auto) 11.0 % (21.0-51.0) L 11/05/19 05:17 [place] % (Auto) 9.6 % (0.0-13.0) 11/05/19 05:17 Eos % (Auto) 2.1 % (0.9-2.9) 11/05/19 05:17 Baso % (Auto) 0.2 % (0.2-1.0) 11/05/19 05:17 Neut # (Auto) 7.7 x10^3/uL (2.2-4.8) H 11/05/19 05:17 Lymph # (Auto) 1.1 X10^3/uL (1.3-2.9) L 11/05/19 05:17 [place] # (Auto) 1.0 x10^3/uL (0.3-0.8) H 11/05/19 05:17 Eos # (Auto) 0.2 x10^3/uL (0.0-0.2) 11/05/19 05:17 Baso # (Auto) 0.0 X10^3/uL (0.0-0.1) 11/05/19 05:17 Absolute Nucleated RBC 0.0 /100WBC 11/05/19 05:17 Sample Site Lr 11/02/19 20:30 ABG pH 7.360 (7.35-7.45) 11/02/19 20:30 ABG pCO2 43.0 mmHg (35.0-45.0) 11/02/19 20:30 ABG pO2 134.0 mmHg (80.0-100.0) H 11/02/19 20:30 ABG HCO3 24.3 mmol/L (22-26) 11/02/19 20:30 ABG O2 Saturation 99.0 % (90-100) 11/02/19 20:30 ABG Base Excess -1.3 mmol/L (-2.0-2.0) 11/02/19 20:30 Test Pos 11/02/19 20:30 A-a Gradient 12.0 mmHg 11/02/19 20:30 FiO2 28.0 11/02/19 20:30 Blood Gas Comments Tessy well ae 11/02/19 20:30 Sodium 138 mmol/L (136-145) 11/05/19 05:17 Corrected Sodium TNP 11/05/19 05:17 Potassium 3.1 mmol/L (3.5-5.1) L 11/05/19 05:17 Chloride 105 mmol/L (98-107) 11/05/19 05:17 Carbon Dioxide 25.4 mmol/L (21-32) 11/05/19 05:17 BUN 6 mg/dL (7-18) L 11/05/19 05:17 Creatinine 0.69 mg/dL (0.55-1.02) 11/05/19 05:17 Est GFR (MDRD) Af Amer > 60 (>60) 11/05/19 05:17 Est GFR (MDRD) Non-Af > 60 (>60) 11/05/19 05:17 Glucose 94 mg/dL (65-99) 11/05/19 05:17 Lactic Acid 1.3 mmol/L (0.4-2.0) 11/02/19 16:10 Calcium 8.0 mg/dL (8.5-10.1) L 11/05/19 05:17 Corrected Calcium 9.4 mg/dL (8.5-10.1) 11/05/19 05:17 Magnesium 1.9 mg/dL (1.7-2.9) 11/05/19 05:17 Total Bilirubin 0.60 mg/dL (0.2-1.0) 11/05/19 05:17 AST 354 Units/L (15-37) H 11/05/19 05:17 ALT 571 Units/L (12-78) H 11/05/19 05:17 Alkaline Phosphatase 66 Units/L (46-116) 11/05/19 05:17 Total Protein 5.6 g/dL (6.4-8.2) L 11/05/19 05:17 Albumin 2.3 g/dL (3.4-5.0) L 11/05/19 05:17 Globulin 3.3 g/dL (2.5-4.5) 11/05/19 05:17 Albumin/Globulin Ratio 0.7 Ratio (1.1-2.1) L 11/05/19 05:17 Specimen Type Catherized urine 11/02/19 11:25 Urine Color Yellow (YELLOW) 11/02/19 11:25 Urine Appearance Cloudy (CLEAR) 11/02/19 11:25 Urine pH 5.0 (5.0 - 8.0) 11/02/19 11:25 Ur Specific [place] 1.010 (1.000-1.030) 11/02/19 11:25 Urine Protein 3+ (NEGATIVE) 11/02/19 11:25 Urine Glucose (UA) Negative (NEGATIVE) 11/02/19 11:25 Urine Ketones Negative (NEGATIVE) 11/02/19 11:25 Urine Occult Blood 3+ (NEGATIVE) 11/02/19 11:25 Urine Nitrite Positive (NEGATIVE) 11/02/19 11:25 Urine Bilirubin Negative (NEGATIVE) 11/02/19 11:25 Urine Urobilinogen Normal (NORMAL) 11/02/19 11:25 Ur Leukocyte Esterase 3+ (NEGATIVE) 11/02/19 11:25 Urine RBC 5-10 /HPF (0-3) A 11/02/19 11:25 Urine WBC Tntc /HPF (0-5) A 11/02/19 11:25 Ur Squamous Epith Cells Negative /HPF (NEGATIVE) 11/02/19 11:25 Urine Bacteria 1+ /HPF (NEGATIVE) 11/02/19 11:25 Urine Mucus Moderate /HPF (NEGATIVE) 11/02/19 11:25 Ur Culture Indicated? Yes/culture set up 11/02/19 11:25 Urine Opiates Screen Positive (NEG=<300) A 11/02/19 11:25 Urine Methadone Screen Negative (NEG=<300) 11/02/19 11:25 Ur Barbiturates Screen Negative (NEG=<200) 11/02/19 11:25 Ur Phencyclidine Scrn Negative (NEG=<25) 11/02/19 11:25 Ur Amphetamines Screen Negative (NEG=<1000) 11/02/19 11:25 U Benzodiazepines Scrn Positive (NEG=<200) A 11/02/19 11:25 Urine Cocaine Screen Negative (NEG=<300) 11/02/19 11:25 U Marijuana (THC) Screen Negative (NEG=<50) 11/02/19 11:25 Plan (1) Overdose: Status: Acute Plan: Likely from home Temazepam d/t response from Flumazenil, holding home [place] and Temazepam. (2) Acute UTI: Status: Acute Plan: UrineCx:E.coli Zosyn>changed to Rocephin (3) Elevated liver enzymes: Status: Acute Plan: AST:53>207>354 ALT:49>245>571 T. bili:0.7 Liver U/S to evaluate, continue to trend (4) Aspiration pneumonia: Status: Acute Plan: Repeat CXR negative. (5) Hypomagnesemia: Status: Acute (6) Hypokalemia: Status: Acute (7) Acute renal failure: Status: Acute Plan: Cr normalized (8) Hyperkalemia: Status: Acute (9) Hypothermia: Status: Acute Plan: normalized (10) Acidosis, lactic: Status: Acute (11) AMS (altered mental status): Status: Acute (12) Sepsis: Status: Acute (13) Acute respiratory failure: Status: Acute Plan: Intubated via nasal intubation(11/02/19) and Extubated(11/02/19)
[2019-11-05] MEDS: PEPCID TAB 20 MG PO SCH (09:40)
[2019-11-05] MEDS: LINZESS PO SCH (09:40)
[2019-11-05] MEDS: ROCEPHIN VIAL 1 GRAM 1 G in NS 100 ML IV + SPIKE MINIBAG* 100 ML IV SCH (09:40)
[2019-11-05] MEDS: ALDACTONE TAB 25 MG PO SCH (09:40)
[2019-11-05] MEDS: PROTONIX TAB 40 MG PO SCH (09:40)
[2019-11-05] MEDS: LOVENOX INJ 40 MG SYR SC SCH (09:40)
[2019-11-05] MEDS: COREG TAB 12.5 MG PO SCH ×2 (09:40→21:50)
[2019-11-05] MEDS: BETAXOLOL AFFEYE SCH ×2 (09:41→21:50)
--- NOTE | 2019-11-05 10:55 | US ---
HISTORYACUTE LIVER FAILURE PMH: HTN, SKIN CANCER PSH: HYSTERECTOMYSTUDYLIVERCOMPARISONNoneFINDINGSThe liver is normal size and echogenicity. No focal lesio n is seen. There is hepatopetal flow in the portal vein and the visualized hepatic veins and IVC unre markable. The hepatic artery is patent. The gallbladder is normal size with no gallstones or wall thi ckening. The common duct measures 3 mm. The right kidney measures 9 cm in length and is normal in ech ogenicity.IMPRESSIONUnremarkable liver, gallbladder, and biliary tree.Electronically signed by: SETH JEWELL (Nov 05, 2019 10:54:12)
[2019-11-05] MEDS: MAGNESIUM SULFATE 1 GRAM/100 mL PREMIX 1 GM/100 ML BAG IV PRN ×2 (10:56→16:50)
[2019-11-05] MEDS ORDERED: BUTT CREAM (COMPOUND) ONE (16:39)
[2019-11-05] MEDS ORDERED: BUTT CREAM (COMPOUND) TOP PRN (16:55)
[2019-11-05] MEDS ORDERED: CATAPRES TAB 0.1 MG PO SCH (21:00)
[2019-11-05] MEDS: LUMIGAN OPHTH RIGHTEYE SCH (21:50)
[2019-11-06] MEDS: XOPENEX 1.25 MG/3 ML NEBULE NEB SCH ×4 (00:57→12:22)
[2019-11-06 05:51] LABS: BASOPHILS % (AUTO) 0.3 % (0.2-1.0); EOSINOPHILS # (AUTO) 0.3 x10^3/uL (0.0-0.2); EOSINOPHILS % (AUTO) 3.5 % (0.9-2.9); HEMATOCRIT 26.5 % (36.0-47.0); HEMOGLOBIN 9.4 g/dL (12.0-16.0); LYMPHOCYTES # (AUTO) 1.1 X10^3/uL (1.3-2.9); LYMPHOCYTES % (AUTO) 13.5 % (21.0-51.0); MEAN CORPUSCULAR HEMOGLOBIN 32.8 pg (27.0-34.0); MEAN CORPUSCULAR HGB CONC 35.5 g/dL (33.0-35.0); MEAN CORPUSCULAR VOLUME 92.3 fL (80.0-100.0); MEAN PLATELET VOLUME 7.9 fL (7.4-11.0); MONOCYTES % (AUTO) 12.3 % (0.0-13.0); NEUTROPHILS # (AUTO) 5.6 x10^3/uL (2.2-4.8); NEUTROPHILS % (AUTO) 70.4 % (42.0-75.0); PLATELET COUNT 142 X10^3/uL (150.0-450.0); RED BLOOD COUNT 2.87 X10^6/uL (3.5-5.4); WHITE BLOOD COUNT 7.9 X10^3/uL (3.6-10.0)
[2019-11-06 05:55] LABS: ALANINE AMINOTRANSFERASE 361 Units/L (12-78); ALKALINE PHOSPHATASE 53 Units/L (46-116); ASPARTATE AMINO TRANSFERASE 130 Units/L (15-37); BLOOD UREA NITROGEN 4 mg/dL (7-18); CALCIUM 7.7 mg/dL (8.5-10.1); CARBON DIOXIDE 25.9 mmol/L (21-32); CHLORIDE 107 mmol/L (98-107); COR CA(FOR HYPOALB) 9.3 mg/dL (8.5-10.1); CREATININE 0.63 mg/dL (0.55-1.02); MAGNESIUM 1.7 mg/dL (1.7-2.9); SODIUM 139 mmol/L (136-145); TOTAL PROTEIN 5.1 g/dL (6.4-8.2); eGFR NON BLACK RACES > 60 (>60)
[2019-11-06] MEDS: NS 1000 ML 1,000 ML IV SCH ×2 (07:56→15:02)
[2019-11-06] MEDS: COREG TAB 12.5 MG PO SCH (09:01)
[2019-11-06] MEDS: ALDACTONE TAB 25 MG PO SCH (09:01)
[2019-11-06] MEDS: LOVENOX INJ 40 MG SYR SC SCH (09:01)
[2019-11-06] MEDS: LINZESS PO SCH (09:01)
[2019-11-06] MEDS: ROCEPHIN VIAL 1 GRAM 1 G in NS 100 ML IV + SPIKE MINIBAG* 100 ML IV SCH (09:02)
[2019-11-06] MEDS: PROTONIX TAB 40 MG PO SCH (09:02)
[2019-11-06] MEDS: PEPCID TAB 20 MG PO SCH (09:02)
[2019-11-06] MEDS: BETAXOLOL AFFEYE SCH (09:03)
[2019-11-06] MEDS: MAGNESIUM SULFATE 1 GRAM/100 mL PREMIX 1 GM/100 ML BAG IV PRN (12:11)
--- NOTE | 2019-11-06 13:49 | W.DIS.FURT ---
Summary of Discharge Discharge Summary of Date Date of Exam: 11/06/19 Admission Date Date of Admission: 11/02/19 Admission Diagnosis Hospital Course: Pt is an 84 yo admitted for acute respiratory failure, intentional overdose, and acute renal failure. Pt had an acute depressive episode and admitted to taking all of her home temazepam intentionally. She was found unresponsive with shallow breathing. She was initially nasally intubated but was able to extubated same day after given flumazenil. Her vitals and labs stabilized throughout hospital course, however her strength was greatly diminished, but improving with physical therapy. Her urine cultures was positive for E.coli, she was treated with Rocephin and discharged with Keflex course to complete. She is transferred to [facility] for psych evaluation. Pt stable on discharge. Vital Signs: Vital Signs (72 hours) 11/03/19 14:00 11/03/19 15:00 11/03/19 15:19 Temperature Pulse Rate 76 79 84 Respiratory Rate 20 33 H 30 H Blood Pressure 159/69 155/70 O2 Sat by Pulse Oximetry 96 97 98 11/03/19 16:00 11/03/19 16:59 11/03/19 17:00 Temperature 99.4 F Pulse Rate 82 74 78 Respiratory Rate 40 H 34 H 37 H Blood Pressure 181/72 171/77 O2 Sat by Pulse Oximetry 97 97 97 11/03/19 17:14 11/03/19 18:00 11/03/19 18:02 Temperature Pulse Rate 75 81 86 Respiratory Rate 38 H 41 H 46 H Blood Pressure 173/84 O2 Sat by Pulse Oximetry 97 97 98 11/03/19 19:00 11/03/19 19:01 11/03/19 19:31 Temperature Pulse Rate 91 H 93 H 86 Respiratory Rate 26 H 41 H 40 H Blood Pressure 191/83 O2 Sat by Pulse Oximetry 97 97 98 11/03/19 20:00 11/03/19 20:30 11/03/19 21:00 Temperature 100.1 F H Pulse Rate 89 88 88 Respiratory Rate 42 H 38 H 39 H Blood Pressure 172/79 181/84 O2 Sat by Pulse Oximetry 99 98 99 11/03/19 21:30 11/03/19 22:00 11/03/19 22:30 Temperature Pulse Rate 91 H 88 79 Respiratory Rate 40 H 35 H 33 H Blood Pressure 158/82 180/80 175/76 O2 Sat by Pulse Oximetry 99 98 98 11/03/19 23:00 11/03/19 23:30 11/04/19 00:00 Temperature 99.0 F Pulse Rate 78 77 78 Respiratory Rate 33 H 35 H Blood Pressure 167/74 127/58 117/56 O2 Sat by Pulse Oximetry 97 100 97 11/04/19 00:30 11/04/19 00:50 11/04/19 01:00 Temperature Pulse Rate 80 85 Respiratory Rate 27 H Blood Pressure 118/59 139/81 O2 Sat by Pulse Oximetry 97 104 H 99 11/04/19 01:30 11/04/19 02:00 11/04/19 02:30 Temperature Pulse Rate 83 83 80 Respiratory Rate 8 L 24 33 H Blood Pressure 147/69 147/76 157/72 O2 Sat by Pulse Oximetry 100 100 100 11/04/19 03:00 11/04/19 03:30 11/04/19 04:00 Temperature 99.2 F Pulse Rate 83 84 Respiratory Rate 35 H 19 Blood Pressure 142/80 179/84 146/79 O2 Sat by Pulse Oximetry 100 100 11/04/19 04:31 11/04/19 05:00 11/04/19 05:01 Temperature Pulse Rate 70 70 Respiratory Rate 30 H 32 H Blood Pressure 198/84 143/62 O2 Sat by Pulse Oximetry 99 98 11/04/19 06:00 11/04/19 07:00 11/04/19 08:00 Temperature 97.5 F L Pulse Rate 72 72 72 Respiratory Rate 32 H 35 H 34 H Blood Pressure 133/64 149/68 125/58 O2 Sat by Pulse Oximetry 95 97 97 11/04/19 09:00 11/04/19 10:00 11/04/19 11:00 Temperature Pulse Rate 73 83 81 Respiratory Rate 39 H 24 32 H Blood Pressure 125/60 135/65 157/74 O2 Sat by Pulse Oximetry 98 97 97 11/04/19 12:00 11/04/19 12:20 11/04/19 13:00 Temperature 98.2 F Pulse Rate 71 69 Respiratory Rate 33 H 21 Blood Pressure 163/72 128/62 O2 Sat by Pulse Oximetry 96 98 91 L 11/04/19 14:00 11/04/19 15:00 11/04/19 16:00 Temperature 97.7 F Pulse Rate 68 72 75 Respiratory Rate 31 H 23 37 H Blood Pressure 151/68 134/60 178/70 O2 Sat by Pulse Oximetry 94 L 97 97 11/04/19 17:00 11/04/19 18:00 11/04/19 19:00 Temperature Pulse Rate 71 74 75 Respiratory Rate 29 H 36 H 38 H Blood Pressure 167/74 181/82 160/73 O2 Sat by Pulse Oximetry 99 100 97 11/04/19 20:00 11/04/19 21:00 11/04/19 22:00 Temperature 98.4 F Pulse Rate 74 76 77 Respiratory Rate 29 H 30 H 27 H Blood Pressure 182/81 175/78 180/79 O2 Sat by Pulse Oximetry 98 99 98 11/04/19 23:00 11/05/19 00:00 11/05/19 00:49 Temperature 100.1 F H Pulse Rate 82 72 Respiratory Rate 36 H 24 Blood Pressure 164/70 146/67 O2 Sat by Pulse Oximetry 96 98 99 11/05/19 01:00 11/05/19 02:00 11/05/19 03:00 Temperature Pulse Rate 80 78 83 Respiratory Rate 26 H 31 H 27 H Blood Pressure 156/72 150/70 161/106 O2 Sat by Pulse Oximetry 100 99 99 11/05/19 04:00 11/05/19 05:00 11/05/19 06:00 Temperature 98.7 F Pulse Rate 70 68 70 Respiratory Rate 22 24 26 H Blood Pressure 177/78 170/75 O2 Sat by Pulse Oximetry 99 99 98 11/05/19 07:00 11/05/19 08:00 11/05/19 09:00 Temperature 98.8 F Pulse Rate 68 74 70 Respiratory Rate 20 19 30 H Blood Pressure 164/77 157/69 155/74 O2 Sat by Pulse Oximetry 99 99 98 11/05/19 10:00 11/05/19 11:00 11/05/19 12:00 Temperature 99.0 F Pulse Rate 73 73 77 Respiratory Rate 25 H 25 H 17 Blood Pressure 155/67 155/67 130/60 O2 Sat by Pulse Oximetry 99 99 98 11/05/19 13:00 11/05/19 14:00 11/05/19 15:00 Temperature Pulse Rate 70 72 76 Respiratory Rate 23 16 19 Blood Pressure 135/61 152/67 160/72 O2 Sat by Pulse Oximetry 98 98 100 11/05/19 16:00 11/05/19 17:00 11/05/19 18:00 Temperature 98.8 F Pulse Rate 70 78 80 Respiratory Rate 22 20 20 Blood Pressure 169/76 165/70 149/70 O2 Sat by Pulse Oximetry 100 99 98 11/05/19 19:00 11/05/19 20:00 11/05/19 21:00 Temperature 99.1 F Pulse Rate 72 78 74 Respiratory Rate 25 H 32 H 26 H Blood Pressure 172/74 162/72 157/70 O2 Sat by Pulse Oximetry 99 99 99 11/05/19 22:00 11/05/19 23:00 11/06/19 00:00 Temperature 98.6 F Pulse Rate 78 77 70 Respiratory Rate 33 H 24 25 H Blood Pressure 150/66 115/94 99/53 O2 Sat by Pulse Oximetry 98 99 98 11/06/19 01:00 11/06/19 02:00 11/06/19 03:00 Temperature Pulse Rate 71 70 70 Respiratory Rate 26 H 20 26 H Blood Pressure 105/51 117/58 136/84 O2 Sat by Pulse Oximetry 100 98 98 11/06/19 04:00 11/06/19 05:00 11/06/19 06:00 Temperature 98.4 F Pulse Rate 70 73 70 Respiratory Rate 16 24 24 Blood Pressure 154/67 132/60 138/66 O2 Sat by Pulse Oximetry 99 100 100 11/06/19 07:00 11/06/19 08:00 11/06/19 09:00 Temperature 98.4 F Pulse Rate 73 77 67 Respiratory Rate 21 27 H 25 H Blood Pressure 178/76 169/80 143/65 O2 Sat by Pulse Oximetry 100 100 99 11/06/19 10:00 11/06/19 11:00 Temperature Pulse Rate 84 69 Respiratory Rate 28 H 18 Blood Pressure 134/65 138/63 O2 Sat by Pulse Oximetry 100 100 Labs: Laboratory Last Values WBC 7.9 X10^3/uL (3.6-10.0) 11/06/19 04:55 RBC 2.87 X10^6/uL (3.5-5.4) L 11/06/19 04:55 Hgb 9.4 g/dL (12.0-16.0) L 11/06/19 04:55 Hct 26.5 % (36.0-47.0) L 11/06/19 04:55 MCV 92.3 fL (80.0-100.0) 11/06/19 04:55 MCH 32.8 pg (27.0-34.0) 11/06/19 04:55 MCHC 35.5 g/dL (33.0-35.0) H 11/06/19 04:55 RDW 14.0 % (11.6-16.5) 11/06/19 04:55 Plt Count 142 X10^3/uL (150.0-450.0) L 11/06/19 04:55 MPV 7.9 fL (7.4-11.0) 11/06/19 04:55 Neut % (Auto) 70.4 % (42.0-75.0) 11/06/19 04:55 Lymph % (Auto) 13.5 % (21.0-51.0) L 11/06/19 04:55 Saline % (Auto) 12.3 % (0.0-13.0) 11/06/19 04:55 Eos % (Auto) 3.5 % (0.9-2.9) H 11/06/19 04:55 Baso % (Auto) 0.3 % (0.2-1.0) 11/06/19 04:55 Neut # (Auto) 5.6 x10^3/uL (2.2-4.8) H 11/06/19 04:55 Lymph # (Auto) 1.1 X10^3/uL (1.3-2.9) L 11/06/19 04:55 Saline # (Auto) 1.0 x10^3/uL (0.3-0.8) H 11/06/19 04:55 Eos # (Auto) 0.3 x10^3/uL (0.0-0.2) H 11/06/19 04:55 Baso # (Auto) 0.0 X10^3/uL (0.0-0.1) 11/06/19 04:55 Absolute Nucleated RBC 0.0 /100WBC 11/06/19 04:55 Sample Site Lr 11/02/19 20:30 ABG pH 7.360 (7.35-7.45) 11/02/19 20:30 ABG pCO2 43.0 mmHg (35.0-45.0) 11/02/19 20:30 ABG pO2 134.0 mmHg (80.0-100.0) H 11/02/19 20:30 ABG HCO3 24.3 mmol/L (22-26) 11/02/19 20:30 ABG O2 Saturation 99.0 % (90-100) 11/02/19 20:30 ABG Base Excess -1.3 mmol/L (-2.0-2.0) 11/02/19 20:30 Test Pos 11/02/19 20:30 A-a Gradient 12.0 mmHg 11/02/19 20:30 FiO2 28.0 11/02/19 20:30 Blood Gas Comments Tessy well ae 11/02/19 20:30 Sodium 139 mmol/L (136-145) 11/06/19 04:55 Corrected Sodium TNP 11/06/19 04:55 Potassium 3.4 mmol/L (3.5-5.1) L 11/06/19 04:55 Chloride 107 mmol/L (98-107) 11/06/19 04:55 Carbon Dioxide 25.9 mmol/L (21-32) 11/06/19 04:55 BUN 4 mg/dL (7-18) L 11/06/19 04:55 Creatinine 0.63 mg/dL (0.55-1.02) 11/06/19 04:55 Est GFR (MDRD) Af Amer > 60 (>60) 11/06/19 04:55 Est GFR (MDRD) Non-Af > 60 (>60) 11/06/19 04:55 Glucose 99 mg/dL (65-99) 11/06/19 04:55 Lactic Acid 1.3 mmol/L (0.4-2.0) 11/02/19 16:10 Calcium 7.7 mg/dL (8.5-10.1) L 11/06/19 04:55 Corrected Calcium 9.3 mg/dL (8.5-10.1) 11/06/19 04:55 Magnesium 1.7 mg/dL (1.7-2.9) 11/06/19 04:55 Total Bilirubin 0.40 mg/dL (0.2-1.0) 11/06/19 04:55 AST 130 Units/L (15-37) H 11/06/19 04:55 ALT 361 Units/L (12-78) H 11/06/19 04:55 Alkaline Phosphatase 53 Units/L (46-116) 11/06/19 04:55 Total Protein 5.1 g/dL (6.4-8.2) L 11/06/19 04:55 Albumin 2.0 g/dL (3.4-5.0) L 11/06/19 04:55 Globulin 3.1 g/dL (2.5-4.5) 11/06/19 04:55 Albumin/Globulin Ratio 0.6 Ratio (1.1-2.1) L 11/06/19 04:55 Specimen Type Catherized urine 11/02/19 11:25 Urine Color Yellow (YELLOW) 11/02/19 11:25 Urine Appearance Cloudy (CLEAR) 11/02/19 11:25 Urine pH 5.0 (5.0 - 8.0) 11/02/19 11:25 Ur Specific [place] 1.010 (1.000-1.030) 11/02/19 11:25 Urine Protein 3+ (NEGATIVE) 11/02/19 11:25 Urine Glucose (UA) Negative (NEGATIVE) 11/02/19 11:25 Urine Ketones Negative (NEGATIVE) 11/02/19 11:25 Urine Occult Blood 3+ (NEGATIVE) 11/02/19 11:25 Urine Nitrite Positive (NEGATIVE) 11/02/19 11:25 Urine Bilirubin Negative (NEGATIVE) 11/02/19 11:25 Urine Urobilinogen Normal (NORMAL) 11/02/19 11:25 Ur Leukocyte Esterase 3+ (NEGATIVE) 11/02/19 11:25 Urine RBC 5-10 /HPF (0-3) A 11/02/19 11:25 Urine WBC Tntc /HPF (0-5) A 11/02/19 11:25 Ur Squamous Epith Cells Negative /HPF (NEGATIVE) 11/02/19 11:25 Urine Bacteria 1+ /HPF (NEGATIVE) 11/02/19 11:25 Urine Mucus Moderate /HPF (NEGATIVE) 11/02/19 11:25 Ur Culture Indicated? Yes/culture set up 11/02/19 11:25 Urine Opiates Screen Positive (NEG=<300) A 11/02/19 11:25 Urine Methadone Screen Negative (NEG=<300) 11/02/19 11:25 Ur Barbiturates Screen Negative (NEG=<200) 11/02/19 11:25 Ur Phencyclidine Scrn Negative (NEG=<25) 11/02/19 11:25 Ur Amphetamines Screen Negative (NEG=<1000) 11/02/19 11:25 U Benzodiazepines Scrn Positive (NEG=<200) A 11/02/19 11:25 Urine Cocaine Screen Negative (NEG=<300) 11/02/19 11:25 U Marijuana (THC) Screen Negative (NEG=<50) 11/02/19 11:25 Reason For Visit: OVERDOSE,ASPIRATION PNEUMONIA,UTI,LACTIC ACIDOSIS Discharge Date Discharge Date: 11/06/19 Discharge Diagnosis All Active Problems (Updated 11/04/19 @ 12:25 by Royce Simmons) Hypokalemia (Acute) Hypomagnesemia (Acute) Elevated liver enzymes (Acute) Acute hyperkalemia (Acute) Acute renal failure (Acute) Acute respiratory failure (Acute) Hyperkalemia (Acute) Sepsis (Acute) Diverticulitis (Acute) Pneumonia (Acute) Abdominal pain (Acute) Pneumonia (Acute) Acute hyponatremia (Acute) AMS (altered mental status) (Acute) Overdose (Acute) Acute UTI (Acute) Hypothermia (Acute) Aspiration pneumonia (Acute) Acidosis, lactic (Acute) Plan of Treatment: Continue with present treatment and follow up plan. Pt is to keep follow up appointment as instructed and take medications as ordered. Discharge Medications Discharge Medications: No Known Drug Allergies Allergy (Verified 03/26/19 18:56) CONTINUE taking the following medications Amitiza 8 mcg PO BID 11/02/19 [History] Lumigan 0.01 % OPHTHALMIC (EYE) HS 11/02/19 [History] albuterol sulfate [Ventolin HFA] See Rx Instructions .ROUTE .COMPLEX PRN 11/02/19 [History] betaxolol See Rx Instructions .ROUTE .COMPLEX 11/02/19 [History] clonidine HCl 0.1 mg PO HS 11/02/19 [History] diclofenac sodium 100 g TOPICAL QID 11/02/19 [History] famotidine 40 mg PO DAILY 11/02/19 [History] fluticasone propionate See Rx Instructions .ROUTE .COMPLEX 11/02/19 [History] pantoprazole 40 mg PO DAILY 11/02/19 [History] ranitidine HCl 150 mg PO BID 11/02/19 [History] spironolactone 25 mg PO DAILY 11/02/19 [History] New Prescriptions cephalexin [Keflex] 500 mg PO BID 5 Days #10 cap 11/06/19 [Rx] hydrocortisone 1 applic TOP QID PRN 10 Days #30 g 11/06/19 [Rx] Discharge Disposition Discharge Disposition: Transfer [facility].
[2019-11-06] MEDS: VOLTAREN 1 % GEL MULTI DOSE TUBE TOP SCH (14:05)
[2019-11-06 15:30] VITALS: BP 171/72
== END 2019-11-06 15:15 | disposition short-term general hospital (02) | DRG 917 ==
LOC: ER 10:54 → ICU 13:22
PROVIDERS: ADMIT Family Medicine; ATTEND Family Medicine
DX: A41.51 Sepsis due to Escherichia coli [E. coli]; E87.2 Acidosis; Z79.899 Other long term (current) drug therapy; R74.8 Abnormal levels of other serum enzymes; E87.6 Hypokalemia; N39.0 Urinary tract infection, site not specified; N17.8 Other acute kidney failure; E83.42 Hypomagnesemia; T42.4X2A Poisoning by benzodiazepines, intentional self-harm, initial encounter; J69.0 Pneumonitis due to inhalation of food and vomit; R41.82 Altered mental status, unspecified; R68.0 Hypothermia, not associated with low environmental temperature; R94.31 Abnormal electrocardiogram [ECG] [EKG]; E87.5 Hyperkalemia; J96.00 Acute respiratory failure, unspecified whether with hypoxia or hypercapnia; Y92.009 Unspecified place in unspecified non-institutional (private) residence as the place of occurrence of the external cause
CPT/HCPCS: 36415; 36600; 51702; 70450; 71010; 71045; 73070; 76705; 80053; 80307; 81001; 82803; 83605; 83735; 84132; 85025; 87040; 87086; 87088; 87186; 92526; 92610; 93005; 94002; 94640; 94660; 96365; 96367; 96374; 96375; 97110; 97162; 97167; 97530; 97535; 99285; A4222; A4618; A7030; J0696; J1650; J2543; J3475; J3480; J3490; J7030; J7050; S0077

== ENCOUNTER 2022-11-12 13:58 | Inpatient (IN) ==
--- NOTE | 2022-11-12 15:07 | DR.URIAD ---
HPI Time Seen Time Seen by Provider: 11/12/22 15:07 PCP Primary Care Physician: SARI JIM Complaint Chief Complaint:: PT FELL ON 11/02/22 AT HOME, FX LEFT CLAVICLE AND SINCE THEN "SHE'S NOT THE SAME PERSON". HER ROUTINES ARE NOT THE SAME, TALKING/BEHAVIOR IS DIFFERENT. VISUAL HALLUCINATIONS X1 11/01/22. PT HAS LOST WEIGHT, DECREASED APPETITE. DIARRHEA LAST COUPLE DAYS; NO URINARY ISSUES; COUGH LAST COUPLE DAYS, VOMITTED X1 THIS AM Self Treatment fo Chief Complaint: WENT [place] SATURDAY 11/04 AND WAS ONLY TREATED FOR FRACTURE OF LEFT CLAVICLE. COVID-19 Coronavirus risk:travel/contact w/high risk person: No Has patient experienced Coronavirus symptoms: Yes Coronavirus symptoms experienced: Coughing Source History Provided: Family Member Timing Onset of Chief Complaint: 11/02/22 Quality Shortness of Breath: none PMH PMH Past Medical History: Yes Past Medical History: Anxiety, Arthritis, Coronary Artery Disease, Depression, GERD and Hypertension Past Medical History Comment: GLAUCOMA, LOW POTASSIUM Past Surgical History: Yes Surgical History: [employer] Surgery Past Surgical History Comment: BLOOD CLOT Family History History of Family Medical Conditions: No Family Medical History: Diabetes Mellitus, Cancer and DE Social History Does any household member use tobacco: No Alcohol Use: None Do you use any recreational Drugs:: No Lives With: Family Lives Where: Home Travel Risk Coronavirus risk:travel/contact w/high risk person: No Has patient experienced Coronavirus symptoms: Yes Coronavirus symptoms experienced: Coughing Infectious screening In the last 2 months have you had wt loss of >10#?: NO Have you had fever, night sweats or hemotysis?: No Have you traveled outside the country in the last 6 months?: No Isolation: Droplet PE Vital Signs Vitals: Temperature 97.7 F Pulse Rate 67 Respiratory Rate 20 Blood Pressure [Right Arm] 95/52 Blood Pressure [Left Arm] 126/65 Blood Pressure 137/63 O2 Sat by Pulse Oximetry 97 ROR Labs Reviewed Result Diagrams: 11/12/22 16:05 11/12/22 16:05 Laboratory: WBC 17.0 X10^3/uL (3.6-10.0) H 11/12/22 16:05 RBC 3.00 X10^6/uL (3.5-5.4) L 11/12/22 16:05 Hgb 9.4 g/dL (12.0-16.0) L 11/12/22 16:05 Hct 28.3 % (36.0-47.0) L 11/12/22 16:05 MCV 94.4 fL (80.0-100.0) 11/12/22 16:05 MCH 31.3 pg (27.0-34.0) 11/12/22 16:05 MCHC 33.2 g/dL (33.0-35.0) 11/12/22 16:05 RDW 15.6 % (11.6-16.5) 11/12/22 16:05 Plt Count 372 X10^3/uL (150.0-450.0) 11/12/22 16:05 Plt Count Comment Adequate (ADEQUATE) 11/12/22 16:05 MPV 8.0 fL (7.4-11.0) 11/12/22 16:05 Neut % (Auto) 86.6 % (42.0-75.0) H 11/12/22 16:05 Lymph % (Auto) 6.7 % (21.0-51.0) L 11/12/22 16:05 [place] % (Auto) 5.9 % (0.0-13.0) 11/12/22 16:05 Eos % (Auto) 0.6 % (0.9-2.9) L 11/12/22 16:05 Baso % (Auto) 0.2 % (0.2-1.0) 11/12/22 16:05 Neut # (Auto) 14.7 x10^3/uL (2.2-4.8) H 11/12/22 16:05 Lymph # (Auto) 1.1 X10^3/uL (1.3-2.9) L 11/12/22 16:05 [place] # (Auto) 1.0 x10^3/uL (0.3-0.8) H 11/12/22 16:05 Eos # (Auto) 0.1 x10^3/uL (0.0-0.2) 11/12/22 16:05 Baso # (Auto) 0.0 X10^3/uL (0.0-0.1) 11/12/22 16:05 Absolute Nucleated RBC 0.1 /100WBC 11/12/22 16:05 Total Counted 100 11/12/22 16:05 Neutrophils % (Manual) 85 % (39-76) H 11/12/22 16:05 Band Neutrophils % 3 % (0-10) 11/12/22 16:05 Lymphocytes % (Manual) 7 % (13-43) L 11/12/22 16:05 Monocytes % (Manual) 4 % (4-9) 11/12/22 16:05 Eosinophils % (Manual) 1 % (0-6) 11/12/22 16:05 Plt Morphology Comment Normal (NORMAL) 11/12/22 16:05 RBC Morphology Normal (NORMAL) 11/12/22 16:05 Sodium 137 mmol/L (136-145) 11/12/22 16:05 Corrected Sodium 138 mmol/L (136-145) 11/12/22 16:05 Potassium 3.8 mmol/L (3.5-5.1) 11/12/22 16:05 Chloride 104 mmol/L (98-107) 11/12/22 16:05 Carbon Dioxide 21.0 mmol/L (21-32) 11/12/22 16:05 BUN 26 mg/dL (7-18) H 11/12/22 16:05 Creatinine 1.30 mg/dL (0.55-1.02) H 11/12/22 16:05 Est GFR (MDRD) Af Amer 50 (>60) L 11/12/22 16:05 Est GFR (MDRD) Non-Af 41 (>60) L 11/12/22 16:05 Glucose 133 mg/dL (65-99) H 11/12/22 16:05 Calcium 9.5 mg/dL (8.5-10.1) 11/12/22 16:05 Corrected Calcium 10.9 mg/dL (8.5-10.1) H 11/12/22 16:05 Total Bilirubin 0.40 mg/dL (0.2-1.0) 11/12/22 16:05 AST 22 Units/L (15-37) 11/12/22 16:05 ALT 17 Units/L (12-78) 11/12/22 16:05 Alkaline Phosphatase 99 Units/L (46-116) 11/12/22 16:05 Total Protein 7.3 g/dL (6.4-8.2) 11/12/22 16:05 Albumin 2.3 g/dL (3.4-5.0) L 11/12/22 16:05 Globulin 5.0 g/dL (2.5-4.5) H 11/12/22 16:05 Albumin/Globulin Ratio 0.5 Ratio (1.1-2.1) L 11/12/22 16:05 Specimen Type Clean catch urine 11/12/22 16:53 Urine Color Yellow (YELLOW) 11/12/22 16:53 Urine Appearance Cloudy (CLEAR) 11/12/22 16:53 Urine pH 5.0 (5.0 - 8.0) 11/12/22 16:53 Ur Specific [place] 1.015 (1.000-1.030) 11/12/22 16:53 Urine Protein 3+ (NEGATIVE) 11/12/22 16:53 Urine Glucose (UA) Negative (NEGATIVE) 11/12/22 16:53 Urine Ketones 1+ (NEGATIVE) 11/12/22 16:53 Urine Blood 3+ (NEGATIVE) 11/12/22 16:53 Urine Nitrite Negative (NEGATIVE) 11/12/22 16:53 Urine Bilirubin Negative (NEGATIVE) 11/12/22 16:53 Urine Urobilinogen 1+ (NORMAL) 11/12/22 16:53 Ur Leukocyte Esterase 3+ (NEGATIVE) 11/12/22 16:53 Urine RBC Tntc /HPF (0-3) A 11/12/22 16:53 Urine WBC Tntc /HPF (0-5) A 11/12/22 16:53 Ur Squamous Epith Cells Few /HPF (NEGATIVE) 11/12/22 16:53 Urine Bacteria 1+ /HPF (NEGATIVE) 11/12/22 16:53 Ur Culture Indicated? Yes/culture set up 11/12/22 16:53 Opioid Opioid Risk Tool Age (Jake box if 16-45): No History of Preadolescent Sexual Abuse: No Total: 0 Total Score Risk Category: Low Risk Copyright: Frank JACOB predicting aberrant behaviors Discharge Plan Discharge Plan Patient Disposition: 01 HOME, SELF-CARE Condition: Stable Prescriptions: No Action carvedilol 12.5 mg tablet 12.5 mg PO BID spironolactone 25 mg tablet 25 mg PO DAILY Amitiza 8 mcg capsule 8 mcg PO BID clonidine HCl 0.1 mg tablet 0.1 mg PO HS famotidine 40 mg tablet 40 mg PO DAILY pantoprazole 40 mg tablet,delayed release (DR/EC) 40 mg PO DAILY ranitidine HCl 150 mg tablet 150 mg PO BID betaxolol 0.5 % drops See Rx Instructions .ROUTE .COMPLEX Rx Instructions: ONE DROP IN RIGHT EYE BID albuterol sulfate [Ventolin HFA] 90 mcg/actuation HFA aerosol inhaler See Rx Instructions .ROUTE .COMPLEX PRN (Reason: Shortness Of Breath) Rx Instructions: inhaled INHALE TWO PUFFS Q4-4H PRN SOB fluticasone propionate 50 mcg/actuation spray,suspension See Rx Instructions .ROUTE .COMPLEX Rx Instructions: USE 1-2 SPRAYS IN EACH NOSTRIL DAILY diclofenac sodium 1 % gel 100 g TOPICAL QID Lumigan 0.01 % drops 0.01 % OPHTHALMIC (EYE) HS prednisolone acetate 1 % drops,suspension 1 drp ophthalmic (eye) BID Rx Instructions: 1 drop left eye bid Health Concerns: Post Hospitalization: new medications and changes needed to prevent readmission or further decline. Pt educated and given instructions on all concerns. Plan of Treatment: Continue with present treatment and follow up plan. Pt is to keep follow up appointment as instructed and take medications as ordered. Orders to Discharge Patient Discharge Orders: Transfer (Routine); Ordered 11/12/22 Ordered By: DORENE BEST Follow ups/Referrals Follow ups/Referrals: JUNIOR JIM [Primary Care Provider] - 3 days
[2022-11-12 16:17] LABS: BASOPHILS % (AUTO) 0.2 % (0.2-1.0); EOSINOPHILS # (AUTO) 0.1 x10^3/uL (0.0-0.2); EOSINOPHILS % (AUTO) 0.6 % (0.9-2.9); HEMATOCRIT 28.3 % (36.0-47.0); HEMOGLOBIN 9.4 g/dL (12.0-16.0); MEAN CORPUSCULAR HGB CONC 33.2 g/dL (33.0-35.0)
[2022-11-12 16:26] LABS: LYMPHOCYTES # (AUTO) 1.1 X10^3/uL (1.3-2.9); LYMPHOCYTES % (AUTO) 6.7 % (21.0-51.0); MEAN CORPUSCULAR HEMOGLOBIN 31.3 pg (27.0-34.0); MEAN CORPUSCULAR VOLUME 94.4 fL (80.0-100.0); MONOCYTES % (AUTO) 5.9 % (0.0-13.0); NEUTROPHILS # (AUTO) 14.7 x10^3/uL (2.2-4.8); NEUTROPHILS % (AUTO) 86.6 % (42.0-75.0); RED CELL DISTRIBUTION WIDTH 15.6 % (11.6-16.5)
[2022-11-12 16:30] LABS: ALBUMIN 2.3 g/dL (3.4-5.0); CALCIUM 9.5 mg/dL (8.5-10.1); COR CA(FOR HYPOALB) 10.9 mg/dL (8.5-10.1); CREATININE 1.3 mg/dL (0.55-1.02); TOTAL PROTEIN 7.3 g/dL (6.4-8.2)
--- NOTE | 2022-11-12 16:47 | CT ---
HISTORYTRAUMA, PAINSTUDYHEAD (TRAUMA)COMPARISONNone available.TECHNIQUEAxial non-contrast images of the head were obtained with coronal and sagittal reformats provided.Radiation dose: 817.54 mGy-cm total DLPFINDINGSNo abnormal areas of acute attenuation in the brain parenchyma.[place]illo-white differentiation remains intact.No intracranial, extra-axial, fluid collection.No hemorrhage.Periventricular chronic microvascular disease.No mass, mass effect or midline shift.Age related brain parenchymal global atrophy.No ventriculomegaly.No acute fracture.Sinuses are well aerated.Mastoid air cells are well aerated.Globes and intra-orbital contents are unremarkable.IMPRESSIONNo acute intracranial abnormality identified.Electronically signed by: Chuckie Nails (Nov 12, 2022 16:46:29)
[2022-11-12 17:09] LABS: BILIRUBIN,URINE NEGATIVE (NEGATIVE); BLOOD/HEMOGLOBIN,URINE 3+ (NEGATIVE); GLUCOSE, URINE NEGATIVE (NEGATIVE); KETONES,URINE 1+ (NEGATIVE); LEUKOCYTE ESTERASE ,URINE 3+ (NEGATIVE); NITRITES,URINE NEGATIVE (NEGATIVE); PROTEIN,URINE 3+ (NEGATIVE); UROBILINOGEN,URINE 1+ (NORMAL)
[2022-11-12 17:16] LABS: APPEARANCE,URINE CLOUDY (CLEAR); COLOR,URINE YELLOW (YELLOW)
[2022-11-12 17:17] LABS: BACTERIA,URINE 1+ /HPF (NEGATIVE); RBC,URINE TNTC /HPF (0-3); SQUAMOUS EPITHELIAL CELL,UR FEW /HPF (NEGATIVE)
[2022-11-12 17:28] LABS: BAND NEUTROPHILS % 3 % (0-10); PLATELET MORPHOLOGY COMMENT NORMAL (NORMAL)
[2022-11-12] MEDS ORDERED: ROCEPHIN VIAL 1 GRAM 1 G in NS 100 ML IV 100 ML IV ONE (18:10)
[2022-11-12] MEDS ORDERED: NS 1,000 ML IV 1,000 ML ONE (18:13)
[2022-11-12] MEDS ORDERED: ROCEPHIN VIAL 1 GRAM ONE (18:13)
[2022-11-12] MEDS ORDERED: NS 100 ML IV 100 ML ONE (18:13)
[2022-11-12] MEDS ORDERED: NS 1,000 ML IV 1,000 ML IV SCH (19:00)
[2022-11-12] MEDS ORDERED: PROVENTIL NEB TX 0.083% 2.5MG/ 3ML NEB PRN ×2 (19:02→19:36)
[2022-11-12] MEDS: NS 1,000 ML IV 1,000 ML IV SCH (19:10)
[2022-11-12 19:12] VITALS: BMI 19.8
[2022-11-12] MEDS ORDERED: ULTRAM PO PRN (19:38)
[2022-11-12] MEDS ORDERED: ZOFRAN INJ 4 MG VIAL IVP PRN (19:39)
--- NOTE | 2022-11-12 20:25 | RAD ---
HISTORYLOWER RIB PAIN ^PT FELL ON 11/02/22 AT HOME, FX LEFT CLAVICLE AND SINCE THEN "SHE'S NOT THE SAME PERSON". HER ROUTINES ARE NOT THE SAME, TALKING/BEHAVIOR IS DIFFERENT. VISUAL HALLUCINATIONS X1 11/01/22STUDYRIB SERIESCOMPARISONNone.FINDINGSThe trachea is midline. The cardiac silhouette is unremarkable. The lungs reveal a right lower lobe interstitial alveolar infiltrate. A left lung base alveolar infiltrate is also seen. This is superimposed on emphysematous changes of the lungs. The bony thorax is unremarkable.No acute cortical disruption or angulation of the bony [left or right] hemithorax can be identified. No underlying pneumothorax is seen.IMPRESSION1. Bilateral lower lobe alveolar and interstitial infiltrates, right worse than left, superimposed on emphysematous changes of the lungs..2. No evidence for acute rib fracture can be identified.Electronically signed by: Rashmi Gaitan (Nov 12, 2022 20:24:10)
[2022-11-12] MEDS: LUMIGAN OPHTH EACHEYE SCH (22:53)
[2022-11-12] MEDS: PATIENT'S HOME MEDICATION EACHEYE SCH (22:54)
[2022-11-12] MEDS: PRED FORTE 1 % EACHEYE SCH (22:54)
[2022-11-13] MEDS ORDERED: SALINE 3% 15 ML NEB TX ONE (00:22)
[2022-11-13] MEDS ORDERED: ROBITUSSIN DM ONE (00:29)
[2022-11-13] MEDS ORDERED: SALINE 3% 15 ML NEB TX NEB ONE (00:39)
[2022-11-13] MEDS: ROBITUSSIN DM PO SCH ×5 (00:50→21:05)
[2022-11-13] MEDS ORDERED: ROBITUSSIN DM PO SCH (01:00)
[2022-11-13] MEDS: DIAMOX PO SCH ×3 (01:56→21:09)
[2022-11-13] MEDS: COREG TAB 12.5 MG PO SCH ×3 (01:57→21:05)
--- NOTE | 2022-11-13 05:02 | RAD ---
HISTORYAMS, COUGH, DYSPNEA Relevant Clinical InformationSTUDYCHEST, 1 VIEWCOMPARISONNoneFINDINGSThe trachea is midline. The cardiac silhouette is unremarkable. Chronic interstitial lung changes with flattening of the diaphragm consistent with COPD is observed. The lungs are clear without focal infiltrate or effusion. The bony thorax is unremarkable.IMPRESSIONCOPD.No active cardiopulmonary diseaseElectronically signed by: Edd Arenas (Nov 13, 2022 05:01:00)
[2022-11-13 06:08] LABS: BASOPHILS % (AUTO) 0.1 % (0.2-1.0); EOSINOPHILS # (AUTO) 0.1 x10^3/uL (0.0-0.2); EOSINOPHILS % (AUTO) 0.6 % (0.9-2.9); HEMOGLOBIN 8.7 g/dL (12.0-16.0); LYMPHOCYTES # (AUTO) 0.8 X10^3/uL (1.3-2.9); LYMPHOCYTES % (AUTO) 5.3 % (21.0-51.0); MEAN CORPUSCULAR HEMOGLOBIN 31.6 pg (27.0-34.0); MEAN CORPUSCULAR HGB CONC 33.4 g/dL (33.0-35.0); MEAN CORPUSCULAR VOLUME 94.9 fL (80.0-100.0); MEAN PLATELET VOLUME 8.2 fL (7.4-11.0); MONOCYTES # (AUTO) 0.9 x10^3/uL (0.3-0.8); MONOCYTES % (AUTO) 6.1 % (0.0-13.0); NEUTROPHILS # (AUTO) 13.6 x10^3/uL (2.2-4.8); NEUTROPHILS % (AUTO) 87.9 % (42.0-75.0); RED BLOOD COUNT 2.74 X10^6/uL (3.5-5.4); RED CELL DISTRIBUTION WIDTH 15.7 % (11.6-16.5); WHITE BLOOD COUNT 15.5 X10^3/uL (3.6-10.0)
[2022-11-13 06:14] LABS: LACTIC ACID 0.8 mmol/L (0.4-2.0)
[2022-11-13 06:19] LABS: ALBUMIN 2.1 g/dL (3.4-5.0); CALCIUM 9.2 mg/dL (8.5-10.1); CARBON DIOXIDE 19.2 mmol/L (21-32); COR CA(FOR HYPOALB) 10.7 mg/dL (8.5-10.1); CREATININE 1.11 mg/dL (0.55-1.02); TOTAL PROTEIN 6.8 g/dL (6.4-8.2)
[2022-11-13] MEDS ORDERED: K-RIDER 10 MEQ/NS 100 ML 10 MEQ/100 ML BAG IV PRN (06:49)
[2022-11-13] MEDS ORDERED: POTASSIUM CHLORIDE LIQ 20 MEQ UDC PO PRN (06:49)
[2022-11-13] MEDS ORDERED: POTASSIUM CHL 40 MEQ/NS 0.45% 500 ML IV PRN (06:49)
[2022-11-13] MEDS ORDERED: KLOR-CON PO PRN (06:49)
[2022-11-13] MEDS ORDERED: MICRO K EXTEN CAP 10 MEQ PO PRN (06:49)
[2022-11-13] MEDS ORDERED: POTASSIUM CHL 60 MEQ/NS 0.45% 500 ML IV PRN (06:49)
[2022-11-13] MEDS: PROVENTIL NEB TX 0.083% 2.5MG/ 3ML NEB SCH ×4 (08:30→21:00)
[2022-11-13] MEDS: ROCEPHIN VIAL 1 GRAM 1 G in NS 100 ML IV 100 ML IV SCH (09:18)
[2022-11-13] MEDS: K-DUR TAB 20 MEQ PO PRN ×2 (09:18→21:07)
[2022-11-13] MEDS: MICRO K EXTEN CAP 10 MEQ PO SCH (09:19)
[2022-11-13] MEDS: PEPCID TAB 40 MG PO SCH (09:19)
[2022-11-13] MEDS: PRED FORTE 1 % EACHEYE SCH ×4 (09:19→21:09)
[2022-11-13] MEDS: ALDACTONE TAB 25 MG PO SCH (09:19)
[2022-11-13] MEDS: PATIENT'S HOME MEDICATION EACHEYE SCH ×2 (09:20→21:16)
[2022-11-13] MEDS: LOVENOX INJ 40 MG SYR SC SCH (10:16)
[2022-11-13] MEDS: ZITHROMAX INJ 500 MG VIAL 500 MG in NS 250 ML IV 250 ML IV SCH ×2 (10:16→11:30)
[2022-11-13] MEDS: MAGNESIUM SULFATE 1 GRAM/100 mL PREMIX 1 G/100 ML BAG IV PRN ×2 (13:02→14:23)
[2022-11-13] MEDS: NS 1,000 ML IV 1,000 ML IV SCH ×2 (13:03→23:24)
--- NOTE | 2022-11-13 14:15 | RAD ---
HISTORYLEFT SHOULDER PAIN, PT STATED HX OF CLAVILE FXSTUDYCLAVICLE, LEFT two viewCOMPARISONNoneFINDINGSNondisplaced fracture of the distal left clavicle. The AC joint appears intact.IMPRESSIONDistal left clavicle fracture.Electronically signed by: LUCIA GARCIA (Nov 13, 2022 14:14:34)
[2022-11-13] MEDS: LUMIGAN OPHTH EACHEYE SCH (21:15)
[2022-11-14 06:17] LABS: BASOPHILS % (AUTO) 0.2 % (0.2-1.0); EOSINOPHILS # (AUTO) 0.1 x10^3/uL (0.0-0.2); EOSINOPHILS % (AUTO) 1.1 % (0.9-2.9); HEMATOCRIT 24.8 % (36.0-47.0); HEMOGLOBIN 8.4 g/dL (12.0-16.0); LYMPHOCYTES # (AUTO) 1.1 X10^3/uL (1.3-2.9); LYMPHOCYTES % (AUTO) 9.9 % (21.0-51.0); MEAN CORPUSCULAR HEMOGLOBIN 32.2 pg (27.0-34.0); MEAN CORPUSCULAR VOLUME 94.6 fL (80.0-100.0); MEAN PLATELET VOLUME 8.2 fL (7.4-11.0); MONOCYTES # (AUTO) 0.8 x10^3/uL (0.3-0.8); MONOCYTES % (AUTO) 7.3 % (0.0-13.0); NEUTROPHILS # (AUTO) 8.8 x10^3/uL (2.2-4.8); NEUTROPHILS % (AUTO) 81.5 % (42.0-75.0); RED BLOOD COUNT 2.62 X10^6/uL (3.5-5.4); RED CELL DISTRIBUTION WIDTH 15.7 % (11.6-16.5); WHITE BLOOD COUNT 10.8 X10^3/uL (3.6-10.0)
[2022-11-14 06:34] LABS: ALANINE AMINOTRANSFERASE 13 Units/L (12-78); ALBUMIN 1.9 g/dL (3.4-5.0); ALKALINE PHOSPHATASE 83 Units/L (46-116); ASPARTATE AMINO TRANSFERASE 17 Units/L (15-37); BLOOD UREA NITROGEN 19 mg/dL (7-18); CALCIUM 8.9 mg/dL (8.5-10.1); CARBON DIOXIDE 17.8 mmol/L (21-32); CHLORIDE 109 mmol/L (98-107); COR CA(FOR HYPOALB) 10.6 mg/dL (8.5-10.1); SODIUM 139 mmol/L (136-145); TOTAL PROTEIN 6.2 g/dL (6.4-8.2); eGFR NON BLACK RACES 56 (>60)
[2022-11-14 07:07] LABS: BAND NEUTROPHILS % 1 % (0-10); PLATELET MORPHOLOGY COMMENT NORMAL (NORMAL)
--- NOTE | 2022-11-14 08:21 | DR.H&P ---
H&P History & Physical for Day of: H&P Date: 11/13/22 Chief Complaint Chief Complaint: Weakness, Decreased appetite Left shoulder pain Allergies Allergies Allergy/AdvReac Type Severity Reaction Status Date / Time No Known Drug Allergies Allergy Verified 03/26/19 18:56 History of Present Illness History of Present Illness: Pt is a 87 year old female presenting with weakness, decreased appetite, cough, and dysuria for the past 2 days. Denies fevers, chills. Labs/imaging: Wbc 15.5, Hgb 8.7, Plt 368, Na 140, K 3.6, Creatinine 1.11, Glucose 126, UA c/w infection, Urine/Blood culture pending, CXR: 1.Bilateral lower lobe alveolar and interstitial infiltrates, right worse than left, superimposed on emphysematous changes of the lungs. CT head: no acute intracranial abnormalities. Pt was admitted for pneumonia and acute uti. Pt was started on IVF NS@75ml/h, and antibiotics: IV Rocephin and Azithromycin. Will restart home medications. Pt was told history of recent clavicle fracture, will get XR to confirm. Otherwise, continue to closely monitor and follow up labs in the morning. Past Medical History Past Medical History: Anxiety, Arthritis, Coronary Artery Disease, Depression, GERD and Hypertension Past Surgical History Surgical History: [employer] Surgery Family History Family Medical History: Diabetes Mellitus, Cancer, [place] and Coronary Artery Disease Social History Does patient currently use any type of tobacco product: No Have you used tobacco products in the last 12 months: No Type of Tobacco Use: None Does any household member use tobacco: No Alcohol Use: None Drug Use: None Medications Home Medications: No Known Drug Allergies Allergy (Verified 03/26/19 18:56) CONTINUE taking the following medications acetazolamide 500 mg capsule,extended release 500 mg PO BID 11/12/22 [History] betaxolol 0.5 % eye drops 1 drp ophthalmic (eye) BID 11/12/22 [History] diphenhydramine 25 mg-acetaminophen 500 mg tablet (Tylenol PM Extra Strength) 1 tab PO HS 11/12/22 [History] montelukast 10 mg tablet 10 mg PO QDAY 11/12/22 [History] potassium chloride 10 mEq tablet,extended release 10 meq PO QDAY 11/12/22 [History] prednisolone acetate 1 % eye drops,suspension 1 drp ophthalmic (eye) QID 11/12/22 [History] prednisolone acetate 1 % eye drops,suspension 1 drp ophthalmic (eye) QID 11/12/22 [History] quetiapine 100 mg tablet 100 mg PO QPM 11/12/22 [History] ropinirole 3 mg tablet 3 mg PO QPM 11/12/22 [History] tramadol 50 mg tablet 50 mg PO Q6H PRN 11/12/22 [History] Labs Result Diagrams: 11/14/22 05:13 11/14/22 05:13 Labs: 11/12/22 16:53 Urine,Clean Catch Urine Culture - Preliminary Laboratory WBC 15.5 X10^3/uL (3.6-10.0) H 11/13/22 05:18 RBC 2.74 X10^6/uL (3.5-5.4) L 11/13/22 05:18 Hgb 8.7 g/dL (12.0-16.0) L 11/13/22 05:18 Hct 26.0 % (36.0-47.0) L 11/13/22 05:18 MCV 94.9 fL (80.0-100.0) 11/13/22 05:18 MCH 31.6 pg (27.0-34.0) 11/13/22 05:18 MCHC 33.4 g/dL (33.0-35.0) 11/13/22 05:18 RDW 15.7 % (11.6-16.5) 11/13/22 05:18 Plt Count 368 X10^3/uL (150.0-450.0) 11/13/22 05:18 Plt Count Comment Adequate (ADEQUATE) 11/12/22 16:05 MPV 8.2 fL (7.4-11.0) 11/13/22 05:18 Neut % (Auto) 87.9 % (42.0-75.0) H 11/13/22 05:18 Lymph % (Auto) 5.3 % (21.0-51.0) L 11/13/22 05:18 [place] % (Auto) 6.1 % (0.0-13.0) 11/13/22 05:18 Eos % (Auto) 0.6 % (0.9-2.9) L 11/13/22 05:18 Baso % (Auto) 0.1 % (0.2-1.0) L 11/13/22 05:18 Neut # (Auto) 13.6 x10^3/uL (2.2-4.8) H 11/13/22 05:18 Lymph # (Auto) 0.8 X10^3/uL (1.3-2.9) L 11/13/22 05:18 [place] # (Auto) 0.9 x10^3/uL (0.3-0.8) H 11/13/22 05:18 Eos # (Auto) 0.1 x10^3/uL (0.0-0.2) 11/13/22 05:18 Baso # (Auto) 0.0 X10^3/uL (0.0-0.1) 11/13/22 05:18 Absolute Nucleated RBC 0.0 /100WBC 11/13/22 05:18 Total Counted 100 11/12/22 16:05 Neutrophils % (Manual) 85 % (39-76) H 11/12/22 16:05 Band Neutrophils % 3 % (0-10) 11/12/22 16:05 Lymphocytes % (Manual) 7 % (13-43) L 11/12/22 16:05 Monocytes % (Manual) 4 % (4-9) 11/12/22 16:05 Eosinophils % (Manual) 1 % (0-6) 11/12/22 16:05 Plt Morphology Comment Normal (NORMAL) 11/12/22 16:05 RBC Morphology Normal (NORMAL) 11/12/22 16:05 Sodium 140 mmol/L (136-145) 11/13/22 05:18 Corrected Sodium 141 mmol/L (136-145) 11/13/22 05:18 Potassium 3.6 mmol/L (3.5-5.1) 11/13/22 05:18 Chloride 108 mmol/L (98-107) H 11/13/22 05:18 Carbon Dioxide 19.2 mmol/L (21-32) L 11/13/22 05:18 BUN 26 mg/dL (7-18) H 11/13/22 05:18 Creatinine 1.11 mg/dL (0.55-1.02) H 11/13/22 05:18 Est GFR (MDRD) Af Amer 60 (>60) 11/13/22 05:18 Est GFR (MDRD) Non-Af 49 (>60) L 11/13/22 05:18 Glucose 126 mg/dL (65-99) H 11/13/22 05:18 Lactic Acid 0.8 mmol/L (0.4-2.0) 11/13/22 05:18 Calcium 9.2 mg/dL (8.5-10.1) 11/13/22 05:18 Corrected Calcium 10.7 mg/dL (8.5-10.1) H 11/13/22 05:18 Magnesium 1.6 mg/dL (2.0-2.9) L 11/13/22 05:18 Total Bilirubin 0.30 mg/dL (0.2-1.0) 11/13/22 05:18 AST 18 Units/L (15-37) 11/13/22 05:18 ALT 15 Units/L (12-78) 11/13/22 05:18 Alkaline Phosphatase 99 Units/L (46-116) 11/13/22 05:18 Total Protein 6.8 g/dL (6.4-8.2) 11/13/22 05:18 Albumin 2.1 g/dL (3.4-5.0) L 11/13/22 05:18 Globulin 4.7 g/dL (2.5-4.5) H 11/13/22 05:18 Albumin/Globulin Ratio 0.4 Ratio (1.1-2.1) L 11/13/22 05:18 Specimen Type Clean catch urine 11/12/22 16:53 Urine Color Yellow (YELLOW) 11/12/22 16:53 Urine Appearance Cloudy (CLEAR) 11/12/22 16:53 Urine pH 5.0 (5.0 - 8.0) 11/12/22 16:53 Ur Specific [place] 1.015 (1.000-1.030) 11/12/22 16:53 Urine Protein 3+ (NEGATIVE) 11/12/22 16:53 Urine Glucose (UA) Negative (NEGATIVE) 11/12/22 16:53 Urine Ketones 1+ (NEGATIVE) 11/12/22 16:53 Urine Blood 3+ (NEGATIVE) 11/12/22 16:53 Urine Nitrite Negative (NEGATIVE) 11/12/22 16:53 Urine Bilirubin Negative (NEGATIVE) 11/12/22 16:53 Urine Urobilinogen 1+ (NORMAL) 11/12/22 16:53 Ur Leukocyte Esterase 3+ (NEGATIVE) 11/12/22 16:53 Urine RBC Tntc /HPF (0-3) A 11/12/22 16:53 Urine WBC Tntc /HPF (0-5) A 11/12/22 16:53 Ur Squamous Epith Cells Few /HPF (NEGATIVE) 11/12/22 16:53 Urine Bacteria 1+ /HPF (NEGATIVE) 11/12/22 16:53 Ur Culture Indicated? Yes/culture set up 11/12/22 16:53 Review of Systems Constitutional: Weakness Eyes: No Symptoms Reported ENT: No Symptoms Reported Respiratory: Cough Cardiovascular: No Symptoms Reported Gastrointestinal: No Symptoms Reported Genitourinary: Dysuria Musculoskeletal: Shoulder Pain (left) Skin: No Symptoms Reported Neurological: No Symptoms Reported Physical Exam Vital Signs: Temperature 97.5 F Pulse Rate [Left Radial] 66 Pulse Rate 67 Respiratory Rate 20 Blood Pressure [Right Arm] 133/71 Blood Pressure [Left Arm] 157/72 Blood Pressure 186/63 O2 Sat by Pulse Oximetry 99 Oriented: Normal Eyes: Normal Ear: Normal Nose: Normal Throat: Normal Respiratory: Clear Throughout Cardiovascular: Normal : Normal Auscultation: Bowel Sounds: Normal Palpation: Normal Tenderness: Normal Skin: Normal Musculoskeletal: Left and Clavicle Psychiatric: Normal Mood Description: Calm and Appropriate Affect: Normal Speech Pattern: Clear and Appropriate Assessment/Plan (1) Pneumonia: Qualifiers: Laterality: left Lung location: lower lobe of lung Pneumonia type: due to unspecified organism Qualified Code(s): J18.1 - Lobar pneumonia, unspecified organism Narrative Support Text: Continue antibiotics. Status: Acute (2) Acute UTI: Narrative Support Text: Continue antibiotics Cultures pending Status: Acute Review H&P Reviewed: Yes Patient was examined?: Yes
[2022-11-14] MEDS: PROVENTIL NEB TX 0.083% 2.5MG/ 3ML NEB SCH ×4 (09:05→20:41)
[2022-11-14] MEDS: DIAMOX PO SCH ×2 (09:09→20:31)
[2022-11-14] MEDS: MICRO K EXTEN CAP 10 MEQ PO SCH (09:09)
[2022-11-14] MEDS: COREG TAB 12.5 MG PO SCH ×2 (09:09→20:27)
[2022-11-14] MEDS: PEPCID TAB 40 MG PO SCH (09:09)
[2022-11-14] MEDS: ROBITUSSIN DM PO SCH ×4 (09:10→20:27)
[2022-11-14] MEDS: ALDACTONE TAB 25 MG PO SCH (09:10)
[2022-11-14] MEDS: LOVENOX INJ 40 MG SYR SC SCH (09:10)
[2022-11-14] MEDS: ZITHROMAX INJ 500 MG VIAL 500 MG in NS 250 ML IV 250 ML IV SCH (09:11)
[2022-11-14] MEDS: PRED FORTE 1 % EACHEYE SCH ×4 (09:11→20:28)
[2022-11-14] MEDS: ROCEPHIN VIAL 1 GRAM 1 G in NS 100 ML IV 100 ML IV SCH (09:11)
[2022-11-14] MEDS: PATIENT'S HOME MEDICATION EACHEYE SCH ×2 (09:12→20:29)
[2022-11-14] MEDS: NS 1,000 ML IV 1,000 ML IV SCH (13:06)
--- NOTE | 2022-11-14 16:11 | PCM.PROG ---
Progress Note Progress Note for Day of Date of Exam: 11/14/22 Subjective Subjective: Pt is a 87 year old female admitted for generalized weakness, acute cystitis, and pneumonia. This morning patient reports significant improvement in symptoms. No acute events overnight. Labs/imaging: Wbc 10.8, Hgb 8.4, Plt 363, Na 139, K 4.0, Creatinine 1.00, Glucose 106, UA c/w infection, Urine/Blood culture pending, CXR: No active cardiopulmonary disease. XR ordered that revealed: Nondisplaced fracture of the distal left clavicle. Pt is currently on IVF NS@75ml/h, and antibiotics: IV Rocephin and Azithromycin. Home medications have been resumed. Leukocytosis trending down. Will consult ortho-Dr Martin for clavicle fracture. Otherwise, continue to closely monitor and follow up labs in the morning. Past Medical Family Social History Allergies: Allergies No Known Drug Allergies Allergy (Verified 03/26/19 18:56) Review of Systems ROS: No change since H&P ROS changes noted: see HPI Vital Signs and I&O's Vital Signs: Temperature 98 F Pulse Rate [Left Radial] 68 Pulse Rate 69 Respiratory Rate 20 Blood Pressure [Right Arm] 155/70 Blood Pressure [Left Arm] 157/72 Blood Pressure 186/63 O2 Sat by Pulse Oximetry 98 Intake and Output: Intake & Output 11/11/22 11/12/22 11/13/22 11/14/22 23:59 23:59 23:59 23:59 Intake Total 450 / 450 2562 / 2562 1040 / 1040 Balance 450 / 450 2562 / 2562 1040 / 1040 Physical Exam Oriented: Normal Eyes: Normal Ear: Normal Nose: Normal Throat: Normal Respiratory: Normal Cardiovascular: Normal : Normal Auscultation: Bowel Sounds: Normal Tenderness: Normal Skin: Normal Musculoskeletal: Left and Clavicle Psychiatric: Normal Mood Description: Calm and Appropriate Affect: Normal Speech Pattern: Clear and Appropriate Laboratory and Diagnostics Result Diagrams: 11/14/22 05:13 11/14/22 05:13 Labs: 11/12/22 16:53 Urine,Clean Catch Urine Culture - Final Laboratory WBC 10.8 X10^3/uL (3.6-10.0) H 11/14/22 05:13 RBC 2.62 X10^6/uL (3.5-5.4) L 11/14/22 05:13 Hgb 8.4 g/dL (12.0-16.0) L 11/14/22 05:13 Hct 24.8 % (36.0-47.0) L 11/14/22 05:13 MCV 94.6 fL (80.0-100.0) 11/14/22 05:13 MCH 32.2 pg (27.0-34.0) 11/14/22 05:13 MCHC 34.0 g/dL (33.0-35.0) 11/14/22 05:13 RDW 15.7 % (11.6-16.5) 11/14/22 05:13 Plt Count 363 X10^3/uL (150.0-450.0) 11/14/22 05:13 Plt Count Comment Adequate (ADEQUATE) 11/14/22 05:13 MPV 8.2 fL (7.4-11.0) 11/14/22 05:13 Neut % (Auto) 81.5 % (42.0-75.0) H 11/14/22 05:13 Lymph % (Auto) 9.9 % (21.0-51.0) L 11/14/22 05:13 [place] % (Auto) 7.3 % (0.0-13.0) 11/14/22 05:13 Eos % (Auto) 1.1 % (0.9-2.9) 11/14/22 05:13 Baso % (Auto) 0.2 % (0.2-1.0) 11/14/22 05:13 Neut # (Auto) 8.8 x10^3/uL (2.2-4.8) H 11/14/22 05:13 Lymph # (Auto) 1.1 X10^3/uL (1.3-2.9) L 11/14/22 05:13 [place] # (Auto) 0.8 x10^3/uL (0.3-0.8) 11/14/22 05:13 Eos # (Auto) 0.1 x10^3/uL (0.0-0.2) 11/14/22 05:13 Baso # (Auto) 0.0 X10^3/uL (0.0-0.1) 11/14/22 05:13 Absolute Nucleated RBC 0.0 /100WBC 11/14/22 05:13 Total Counted 100 11/14/22 05:13 Neutrophils % (Manual) 80 % (39-76) H 11/14/22 05:13 Band Neutrophils % 1 % (0-10) 11/14/22 05:13 Lymphocytes % (Manual) 13 % (13-43) 11/14/22 05:13 Monocytes % (Manual) 6 % (4-9) 11/14/22 05:13 Eosinophils % (Manual) 1 % (0-6) 11/12/22 16:05 Plt Morphology Comment Normal (NORMAL) 11/14/22 05:13 RBC Morphology Normal (NORMAL) 11/14/22 05:13 Sodium 139 mmol/L (136-145) 11/14/22 05:13 Corrected Sodium TNP 11/14/22 05:13 Potassium 4.0 mmol/L (3.5-5.1) 11/14/22 05:13 Chloride 109 mmol/L (98-107) H 11/14/22 05:13 Carbon Dioxide 17.8 mmol/L (21-32) L 11/14/22 05:13 BUN 19 mg/dL (7-18) H 11/14/22 05:13 Creatinine 1.00 mg/dL (0.55-1.02) 11/14/22 05:13 Est GFR (MDRD) Af Amer > 60 (>60) 11/14/22 05:13 Est GFR (MDRD) Non-Af 56 (>60) L 11/14/22 05:13 Glucose 106 mg/dL (65-99) H 11/14/22 05:13 Lactic Acid 0.8 mmol/L (0.4-2.0) 11/13/22 05:18 Calcium 8.9 mg/dL (8.5-10.1) 11/14/22 05:13 Corrected Calcium 10.6 mg/dL (8.5-10.1) H 11/14/22 05:13 Magnesium 2.0 mg/dL (2.0-2.9) 11/14/22 05:13 Total Bilirubin 0.30 mg/dL (0.2-1.0) 11/14/22 05:13 AST 17 Units/L (15-37) 11/14/22 05:13 ALT 13 Units/L (12-78) 11/14/22 05:13 Alkaline Phosphatase 83 Units/L (46-116) 11/14/22 05:13 Total Protein 6.2 g/dL (6.4-8.2) L 11/14/22 05:13 Albumin 1.9 g/dL (3.4-5.0) L 11/14/22 05:13 Globulin 4.3 g/dL (2.5-4.5) 11/14/22 05:13 Albumin/Globulin Ratio 0.4 Ratio (1.1-2.1) L 11/14/22 05:13 Specimen Type Clean catch urine 11/12/22 16:53 Urine Color Yellow (YELLOW) 11/12/22 16:53 Urine Appearance Cloudy (CLEAR) 11/12/22 16:53 Urine pH 5.0 (5.0 - 8.0) 11/12/22 16:53 Ur Specific [place] 1.015 (1.000-1.030) 11/12/22 16:53 Urine Protein 3+ (NEGATIVE) 11/12/22 16:53 Urine Glucose (UA) Negative (NEGATIVE) 11/12/22 16:53 Urine Ketones 1+ (NEGATIVE) 11/12/22 16:53 Urine Blood 3+ (NEGATIVE) 11/12/22 16:53 Urine Nitrite Negative (NEGATIVE) 11/12/22 16:53 Urine Bilirubin Negative (NEGATIVE) 11/12/22 16:53 Urine Urobilinogen 1+ (NORMAL) 11/12/22 16:53 Ur Leukocyte Esterase 3+ (NEGATIVE) 11/12/22 16:53 Urine RBC Tntc /HPF (0-3) A 11/12/22 16:53 Urine WBC Tntc /HPF (0-5) A 11/12/22 16:53 Ur Squamous Epith Cells Few /HPF (NEGATIVE) 11/12/22 16:53 Urine Bacteria 1+ /HPF (NEGATIVE) 11/12/22 16:53 Ur Culture Indicated? Yes/culture set up 11/12/22 16:53 Plan (1) Pneumonia: Status: Acute Qualifiers: Laterality: left Lung location: lower lobe of lung Pneumonia type: due to unspecified organism Qualified Code(s): J18.1 - Lobar pneumonia, unspecified organism (2) Acute UTI: Status: Acute (3) Clavicle fracture: Status: Acute
[2022-11-14] MEDS: LUMIGAN OPHTH EACHEYE SCH (20:29)
[2022-11-15] MEDS: NS 1,000 ML IV 1,000 ML IV SCH ×3 (00:32→17:02)
[2022-11-15 05:56] LABS: BASOPHILS % (AUTO) 0.2 % (0.2-1.0); EOSINOPHILS # (AUTO) 0.2 x10^3/uL (0.0-0.2); EOSINOPHILS % (AUTO) 1.9 % (0.9-2.9); HEMATOCRIT 25.3 % (36.0-47.0); HEMOGLOBIN 8.6 g/dL (12.0-16.0); LYMPHOCYTES % (AUTO) 10.7 % (21.0-51.0); MEAN CORPUSCULAR HEMOGLOBIN 32.1 pg (27.0-34.0); MEAN CORPUSCULAR HGB CONC 33.9 g/dL (33.0-35.0); MEAN CORPUSCULAR VOLUME 94.7 fL (80.0-100.0); MEAN PLATELET VOLUME 8.2 fL (7.4-11.0); MONOCYTES # (AUTO) 0.8 x10^3/uL (0.3-0.8); MONOCYTES % (AUTO) 8.6 % (0.0-13.0); NEUTROPHILS # (AUTO) 7.6 x10^3/uL (2.2-4.8); NEUTROPHILS % (AUTO) 78.6 % (42.0-75.0); RED BLOOD COUNT 2.67 X10^6/uL (3.5-5.4); RED CELL DISTRIBUTION WIDTH 15.5 % (11.6-16.5); WHITE BLOOD COUNT 9.7 X10^3/uL (3.6-10.0)
[2022-11-15 06:04] LABS: ALANINE AMINOTRANSFERASE 13 Units/L (12-78); ALBUMIN 1.9 g/dL (3.4-5.0); ALKALINE PHOSPHATASE 79 Units/L (46-116); ASPARTATE AMINO TRANSFERASE 17 Units/L (15-37); BLOOD UREA NITROGEN 14 mg/dL (7-18); CALCIUM 8.4 mg/dL (8.5-10.1); CARBON DIOXIDE 18.6 mmol/L (21-32); CHLORIDE 109 mmol/L (98-107); COR CA(FOR HYPOALB) 10.1 mg/dL (8.5-10.1); CREATININE 0.96 mg/dL (0.55-1.02); SODIUM 139 mmol/L (136-145); TOTAL PROTEIN 6.1 g/dL (6.4-8.2); eGFR NON BLACK RACES 58 (>60)
[2022-11-15 06:48] LABS: PLATELET MORPHOLOGY COMMENT NORMAL (NORMAL)
[2022-11-15] MEDS: ROCEPHIN VIAL 1 GRAM 1 G in NS 100 ML IV 100 ML IV SCH (08:41)
[2022-11-15] MEDS: LOVENOX INJ 40 MG SYR SC SCH (08:42)
[2022-11-15] MEDS: ROBITUSSIN DM PO SCH ×3 (08:42→16:04)
[2022-11-15] MEDS: DIAMOX PO SCH (08:42)
[2022-11-15] MEDS: ZITHROMAX INJ 500 MG VIAL 500 MG in NS 250 ML IV 250 ML IV SCH (08:42)
[2022-11-15] MEDS: COREG TAB 12.5 MG PO SCH (08:44)
[2022-11-15] MEDS: PEPCID TAB 40 MG PO SCH (08:44)
[2022-11-15] MEDS: ALDACTONE TAB 25 MG PO SCH (08:44)
[2022-11-15] MEDS: MICRO K EXTEN CAP 10 MEQ PO SCH (08:44)
[2022-11-15] MEDS: PRED FORTE 1 % EACHEYE SCH ×3 (08:56→16:04)
[2022-11-15] MEDS: PATIENT'S HOME MEDICATION EACHEYE SCH (08:56)
[2022-11-15] MEDS: PROVENTIL NEB TX 0.083% 2.5MG/ 3ML NEB SCH ×3 (08:59→16:30)
[2022-11-15 16:16] VITALS: BP 146/65
--- NOTE | 2022-11-19 21:51 | W.DIS.FURT ---
Summary of Discharge Discharge Summary of Date Date of Exam: 11/15/22 Admission Date Date of Admission: 11/12/22 Admission Diagnosis Hospital Course: Pt is a 87 year old female admitted for generalized weakness, acute cystitis, pneumonia, and distal left clavicle fracture. Her hospital/treatment course included: IVF NS@75ml/h, and antibiotics: IV Rocephin and Azithromycin. Her home medications were resumed. Pt responded well to treatments and leukocytosis trended down. Ortho consulted-Dr Martin for clavicle fracture recommended sling and will follow up outpatient. Labs/imaging: Wbc 9.7, Hgb 8.6, Plt 410, Na 139, K 3.8, Creatinine 0.96, Glucose 99, Urine culture shows contamination, Blood culture no growth to date. CXR: No active cardiopulmonary disease. Pt was supposed to be discharged but was determined to leave AMA without knowing result yet of blood culture. Vital Signs: Vital Signs (72 hours) 11/12/22 13:59 11/12/22 15:07 11/12/22 18:26 Temperature 97.7 F Pulse Rate 77 67 74 Pulse Rate [Left Radial] Respiratory Rate 20 Blood Pressure 137/63 Blood Pressure [Left Arm] Blood Pressure [Right Arm] O2 Sat by Pulse Oximetry 98 97 98 Oxygen Delivery Method Room Air 11/12/22 18:26 11/12/22 18:42 11/12/22 18:53 Temperature 97.5 F L Pulse Rate Pulse Rate [Left Radial] 69 Respiratory Rate 20 Blood Pressure 186/63 Blood Pressure [Left Arm] 157/72 Blood Pressure [Right Arm] 161/67 O2 Sat by Pulse Oximetry 97 Oxygen Delivery Method Room Air 11/12/22 18:19 11/12/22 19:56 11/12/22 20:40 Temperature 97.8 F Pulse Rate Pulse Rate [Left Radial] 68 Respiratory Rate 20 Blood Pressure Blood Pressure [Left Arm] Blood Pressure [Right Arm] 151/68 O2 Sat by Pulse Oximetry 97 Oxygen Delivery Method Room Air Room Air Room Air 11/12/22 20:40 11/12/22 19:00 11/13/22 00:00 Temperature 98.2 F Pulse Rate 79 Pulse Rate [Left Radial] 70 Respiratory Rate 18 Blood Pressure Blood Pressure [Left Arm] Blood Pressure [Right Arm] 166/71 O2 Sat by Pulse Oximetry 97 96 Oxygen Delivery Method Room Air Room Air 11/13/22 04:00 11/13/22 07:00 11/13/22 07:30 Temperature 97.6 F 98.6 F Pulse Rate Pulse Rate [Left Radial] 71 76 Respiratory Rate 18 20 Blood Pressure Blood Pressure [Left Arm] Blood Pressure [Right Arm] 154/68 149/64 O2 Sat by Pulse Oximetry 97 97 Oxygen Delivery Method Room Air Room Air Room Air 11/13/22 08:30 11/13/22 11:44 11/13/22 13:00 Temperature 97.5 F L Pulse Rate 67 Pulse Rate [Left Radial] 66 Respiratory Rate 20 Blood Pressure Blood Pressure [Left Arm] Blood Pressure [Right Arm] 133/71 O2 Sat by Pulse Oximetry 98 99 Oxygen Delivery Method Room Air Room Air 11/13/22 16:00 11/13/22 16:30 11/13/22 19:00 Temperature 98.6 F Pulse Rate 67 Pulse Rate [Left Radial] 60 Respiratory Rate 18 Blood Pressure Blood Pressure [Left Arm] Blood Pressure [Right Arm] 139/63 O2 Sat by Pulse Oximetry 97 97 Oxygen Delivery Method Room Air Room Air 11/13/22 20:00 11/14/22 00:00 11/13/22 21:00 Temperature 98.6 F 98.6 F Pulse Rate 91 H Pulse Rate [Left Radial] 65 66 Respiratory Rate 18 20 Blood Pressure Blood Pressure [Left Arm] Blood Pressure [Right Arm] 149/65 145/67 O2 Sat by Pulse Oximetry 98 97 92 L Oxygen Delivery Method Room Air Room Air 11/13/22 21:00 11/14/22 04:00 11/14/22 07:00 Temperature 99 F Pulse Rate Pulse Rate [Left Radial] 72 Respiratory Rate 20 Blood Pressure Blood Pressure [Left Arm] Blood Pressure [Right Arm] 177/75 O2 Sat by Pulse Oximetry 96 Oxygen Delivery Method Room Air Room Air Room Air 11/14/22 07:59 11/14/22 09:05 11/14/22 09:05 Temperature 97.7 F Pulse Rate 69 Pulse Rate [Left Radial] 70 Respiratory Rate 20 Blood Pressure Blood Pressure [Left Arm] Blood Pressure [Right Arm] 162/72 O2 Sat by Pulse Oximetry 98 98 Oxygen Delivery Method Room Air Room Air 11/14/22 11:41 11/14/22 15:57 11/14/22 20:00 Temperature 98.8 F 98 F 98.8 F Pulse Rate Pulse Rate [Left Radial] 66 68 66 Respiratory Rate 20 20 20 Blood Pressure Blood Pressure [Left Arm] Blood Pressure [Right Arm] 113/53 155/70 184/72 O2 Sat by Pulse Oximetry 97 98 96 Oxygen Delivery Method Room Air Room Air Room Air 11/14/22 19:00 11/15/22 00:00 11/14/22 20:41 Temperature 98.7 F Pulse Rate Pulse Rate [Left Radial] 66 Respiratory Rate 20 Blood Pressure Blood Pressure [Left Arm] Blood Pressure [Right Arm] 141/65 O2 Sat by Pulse Oximetry 98 Oxygen Delivery Method Room Air Room Air Room Air 11/14/22 20:41 11/15/22 04:00 11/15/22 07:00 Temperature 98.5 F Pulse Rate 65 Pulse Rate [Left Radial] 68 Respiratory Rate 20 Blood Pressure Blood Pressure [Left Arm] Blood Pressure [Right Arm] 155/71 O2 Sat by Pulse Oximetry 96 97 Oxygen Delivery Method Room Air Room Air 11/15/22 08:42 Temperature Pulse Rate Pulse Rate [Left Radial] Respiratory Rate 17 Blood Pressure Blood Pressure [Left Arm] Blood Pressure [Right Arm] O2 Sat by Pulse Oximetry Oxygen Delivery Method Labs: Laboratory Last Values WBC 9.7 X10^3/uL (3.6-10.0) 11/15/22 05:15 RBC 2.67 X10^6/uL (3.5-5.4) L 11/15/22 05:15 Hgb 8.6 g/dL (12.0-16.0) L 11/15/22 05:15 Hct 25.3 % (36.0-47.0) L 11/15/22 05:15 MCV 94.7 fL (80.0-100.0) 11/15/22 05:15 MCH 32.1 pg (27.0-34.0) 11/15/22 05:15 MCHC 33.9 g/dL (33.0-35.0) 11/15/22 05:15 RDW 15.5 % (11.6-16.5) 11/15/22 05:15 Plt Count 410 X10^3/uL (150.0-450.0) 11/15/22 05:15 Plt Count Comment Adequate (ADEQUATE) 11/15/22 05:15 MPV 8.2 fL (7.4-11.0) 11/15/22 05:15 Neut % (Auto) 78.6 % (42.0-75.0) H 11/15/22 05:15 Lymph % (Auto) 10.7 % (21.0-51.0) L 11/15/22 05:15 [place] % (Auto) 8.6 % (0.0-13.0) 11/15/22 05:15 Eos % (Auto) 1.9 % (0.9-2.9) 11/15/22 05:15 Baso % (Auto) 0.2 % (0.2-1.0) 11/15/22 05:15 Neut # (Auto) 7.6 x10^3/uL (2.2-4.8) H 11/15/22 05:15 Lymph # (Auto) 1.0 X10^3/uL (1.3-2.9) L 11/15/22 05:15 [place] # (Auto) 0.8 x10^3/uL (0.3-0.8) 11/15/22 05:15 Eos # (Auto) 0.2 x10^3/uL (0.0-0.2) 11/15/22 05:15 Baso # (Auto) 0.0 X10^3/uL (0.0-0.1) 11/15/22 05:15 Absolute Nucleated RBC 0.0 /100WBC 11/15/22 05:15 Total Counted 100 11/15/22 05:15 Neutrophils % (Manual) 90 % (39-76) H 11/15/22 05:15 Band Neutrophils % 1 % (0-10) 11/14/22 05:13 Lymphocytes % (Manual) 7 % (13-43) L 11/15/22 05:15 Monocytes % (Manual) 3 % (4-9) L 11/15/22 05:15 Eosinophils % (Manual) 1 % (0-6) 11/12/22 16:05 Plt Morphology Comment Normal (NORMAL) 11/15/22 05:15 RBC Morphology Normal (NORMAL) 11/15/22 05:15 Sodium 139 mmol/L (136-145) 11/15/22 05:15 Corrected Sodium TNP 11/15/22 05:15 Potassium 3.8 mmol/L (3.5-5.1) 11/15/22 05:15 Chloride 109 mmol/L (98-107) H 11/15/22 05:15 Carbon Dioxide 18.6 mmol/L (21-32) L 11/15/22 05:15 BUN 14 mg/dL (7-18) 11/15/22 05:15 Creatinine 0.96 mg/dL (0.55-1.02) 11/15/22 05:15 Est GFR (MDRD) Af Amer > 60 (>60) 11/15/22 05:15 Est GFR (MDRD) Non-Af 58 (>60) L 11/15/22 05:15 Glucose 99 mg/dL (65-99) 11/15/22 05:15 Lactic Acid 0.8 mmol/L (0.4-2.0) 11/13/22 05:18 Calcium 8.4 mg/dL (8.5-10.1) L 11/15/22 05:15 Corrected Calcium 10.1 mg/dL (8.5-10.1) 11/15/22 05:15 Magnesium 2.0 mg/dL (2.0-2.9) 11/14/22 05:13 Total Bilirubin 0.30 mg/dL (0.2-1.0) 11/15/22 05:15 AST 17 Units/L (15-37) 11/15/22 05:15 ALT 13 Units/L (12-78) 11/15/22 05:15 Alkaline Phosphatase 79 Units/L (46-116) 11/15/22 05:15 Total Protein 6.1 g/dL (6.4-8.2) L 11/15/22 05:15 Albumin 1.9 g/dL (3.4-5.0) L 11/15/22 05:15 Globulin 4.2 g/dL (2.5-4.5) 11/15/22 05:15 Albumin/Globulin Ratio 0.5 Ratio (1.1-2.1) L 11/15/22 05:15 Specimen Type Clean catch urine 11/12/22 16:53 Urine Color Yellow (YELLOW) 11/12/22 16:53 Urine Appearance Cloudy (CLEAR) 11/12/22 16:53 Urine pH 5.0 (5.0 - 8.0) 11/12/22 16:53 Ur Specific [place] 1.015 (1.000-1.030) 11/12/22 16:53 Urine Protein 3+ (NEGATIVE) 11/12/22 16:53 Urine Glucose (UA) Negative (NEGATIVE) 11/12/22 16:53 Urine Ketones 1+ (NEGATIVE) 11/12/22 16:53 Urine Blood 3+ (NEGATIVE) 11/12/22 16:53 Urine Nitrite Negative (NEGATIVE) 11/12/22 16:53 Urine Bilirubin Negative (NEGATIVE) 11/12/22 16:53 Urine Urobilinogen 1+ (NORMAL) 11/12/22 16:53 Ur Leukocyte Esterase 3+ (NEGATIVE) 11/12/22 16:53 Urine RBC Tntc /HPF (0-3) A 11/12/22 16:53 Urine WBC Tntc /HPF (0-5) A 11/12/22 16:53 Ur Squamous Epith Cells Few /HPF (NEGATIVE) 11/12/22 16:53 Urine Bacteria 1+ /HPF (NEGATIVE) 11/12/22 16:53 Ur Culture Indicated? Yes/culture set up 11/12/22 16:53 Reason For Visit: AMS, DEHYDRATION, GENERALIZED WEAKNESS, UTI Discharge Date Discharge Date: 11/15/22 Discharge Diagnosis All Active Problems (Updated 11/14/22 @ 16:11 by Royce Simmons) Clavicle fracture (Acute) Hypokalemia (Acute) Hypomagnesemia (Acute) Elevated liver enzymes (Acute) Acute hyperkalemia (Acute) Acute renal failure (Acute) Acute respiratory failure (Acute) Hyperkalemia (Acute) Sepsis (Acute) Diverticulitis (Acute) Pneumonia (Acute) Abdominal pain (Acute) Pneumonia (Acute) Acute hyponatremia (Acute) AMS (altered mental status) (Acute) Overdose (Acute) Acute UTI (Acute) Hypothermia (Acute) Aspiration pneumonia (Acute) Acidosis, lactic (Acute) Plan of Treatment: Continue with present treatment and follow up plan. Pt is to keep follow up appointment as instructed and take medications as ordered. Discharge Medications Discharge Medications: No Known Drug Allergies Allergy (Verified 03/26/19 18:56) CONTINUE taking the following medications acetazolamide 500 mg capsule,extended release 500 mg PO BID 11/12/22 [History] betaxolol 0.5 % eye drops 1 drp ophthalmic (eye) BID 11/12/22 [History] diphenhydramine 25 mg-acetaminophen 500 mg tablet (Tylenol PM Extra Strength) 1 tab PO HS 11/12/22 [History] montelukast 10 mg tablet 10 mg PO QDAY 11/12/22 [History] potassium chloride 10 mEq tablet,extended release 10 meq PO QDAY 11/12/22 [Hi story] prednisolone acetate 1 % eye drops,suspension 1 drp ophthalmic (eye) QID 11/12/22 [History] prednisolone acetate 1 % eye drops,suspension 1 drp ophthalmic (eye) QID 11/12/22 [History] quetiapine 100 mg tablet 100 mg PO QPM 11/12/22 [History] ropinirole 3 mg tablet 3 mg PO QPM 11/12/22 [History] tramadol 50 mg tablet 50 mg PO Q6H PRN 11/12/22 [History] Discharge Disposition Discharge Disposition: Home Discharge Condition: Stable Discharge Plan Discharge Plan Hospital Course: Pt is a 87 year old female admitted for generalized weakness, acute cystitis, pneumonia, and distal left clavicle fracture. Her hospital/treatment course included: IVF NS@75ml/h, and antibiotics: IV Rocephin and Azithromycin. Her home medications were resumed. Pt responded well to treatments and leukocytosis angel nded down. Ortho consulted-Dr Martin for clavicle fracture recommended sling and will follow up outpatient. Labs/imaging: Wbc 9.7, Hgb 8.6, Plt 410, Na 139, K 3.8, Creatinine 0.96, Glucose 99, Urine culture shows contamination, Blood culture no growth to date. CXR: No active cardiopulmonary disease. Pt was supposed to be discharged but was determined to leave [place] without knowing result yet of blood culture. Patient Disposition: 07 AGAINST MEDICAL ADVICE Condition: Stable Health Concerns: Post Hospitalization: new medications and changes needed to prevent readmission or further decline. Pt educated and given instructions on all concerns. Care Plan Goals: Problem: Pain/Alteration in Comfort Goal: Improve/ Resolve Pain; Achieve Pain Tolerance Instructions: Take pain medications as prescribed. Contact your primary care provider if your pain is unrelieved or worsens. Follow up with primary care provider as directed. Plan of Treatment: Continue with present treatment and follow up plan. Pt is to keep follow up appointment as instructed and take medications as ordered. Prescriptions: No Action carvedilol 12.5 mg tablet 12.5 mg PO BID spironolactone 25 mg tablet 25 mg PO DAILY famotidine 40 mg tablet 40 mg PO DAILY Lumigan 0.01 % drops 0.01 % OPHTHALMIC (EYE) HS Rx Instructions: 1 DROP IN BOTH EYES DAILY AT BEDTIME acetazolamide 500 mg capsule, extended release 500 mg PO BID ropinirole 3 mg tablet 3 mg PO QPM potassium chloride 10 mEq tablet extended release 10 meq PO QDAY tramadol 50 mg tablet 50 mg PO Q6H PRN quetiapine 100 mg tablet 100 mg PO QPM prednisolone acetate 1 % drops,suspension 1 drp OPHTHALMIC (EYE) QID Label Comments: [NO ORIGINAL SIG] Rx Instructions: 1 DROP IN LEFT EYE QID X 2 WEEKS ONLY - STOP ON 11/15/22 prednisolone acetate 1 % drops,suspension 1 drp OPHTHALMIC (EYE) QID Label Comments: [NO ORIGINAL SIG] Rx Instructions: 1 DROP IN RIGHT EYE 4 X DAILY montelukast 10 mg tablet 10 mg PO QDAY betaxolol 0.5 % drops 1 drp OPHTHALMIC (EYE) BID Label Comments: [NO ORIGINAL SIG] Rx Instructions: BOTH EYES diphenhydramine-acetaminophen [Tylenol PM Extra Strength] 25-500 mg Tablet 1 tab PO HS Follow ups/Referrals Follow ups/Referrals: SETH MARTIN [CONSULTING PHYSICIAN] - 12/06/22 9:15 am JUNIOR JMI [Primary Care Provider] - 3 days Instructions Instructions: Clavicle Fracture, Megc-or-Fgid, Hyperkalemia, [id number]
== END 2022-11-15 18:55 | disposition left against medical advice (07) | DRG 194 ==
LOC: MED/SURG 13:58 → ER 13:58 → OBSVTOIN 18:04 → MED/SURG 18:42
PROVIDERS: ADMIT Family Medicine; ATTEND Family Medicine

== ENCOUNTER 2024-12-01 18:09 | Observation (INO) ==
--- NOTE | 2024-12-01 19:20 | EKG ---
Test Reason : epi abd pain Blood Pressure : */* mmHG Vent. Rate : 92 BPM Atrial Rate : 92 BPM P-R Int : 148 ms QRS Dur : 124 ms QT Int : 360 ms P-R-T Axes : 22 -65 106 degrees QTc Int : 445 ms Normal sinus rhythm with sinus arrhythmia Left axis deviation Left bundle branch block Abnormal ECG No previous ECGs available Confirmed by Yimi Wood MD ([id number]) on 12/02/2024 7:33:22 AM Referred By: Confirmed By: Yimi Wood MD
[2024-12-01 19:22] LABS: BASOPHILS # (AUTO) 0.1 X10^3/uL (0.0-0.1); BASOPHILS % (AUTO) 0.3 % (0.2-1.0); EOSINOPHILS # (AUTO) 0.1 x10^3/uL (0.0-0.2); EOSINOPHILS % (AUTO) 0.3 % (0.9-2.9); HEMATOCRIT 32.6 % (36.0-47.0); HEMOGLOBIN 11.1 g/dL (12.0-16.0); LYMPHOCYTES # (AUTO) 0.7 X10^3/uL (1.3-2.9); LYMPHOCYTES % (AUTO) 3.3 % (21.0-51.0); MEAN CORPUSCULAR HEMOGLOBIN 32.2 pg (27.0-34.0); MEAN CORPUSCULAR HGB CONC 34.1 g/dL (33.0-35.0); MEAN CORPUSCULAR VOLUME 94.6 fL (80.0-100.0); MEAN PLATELET VOLUME 8.3 fL (7.4-11.0); MONOCYTES # (AUTO) 1.3 x10^3/uL (0.3-0.8); MONOCYTES % (AUTO) 5.8 % (0.0-13.0); NEUTROPHILS # (AUTO) 20.1 x10^3/uL (2.2-4.8); NEUTROPHILS % (AUTO) 90.3 % (42.0-75.0); PLATELET COUNT 189 X10^3/uL (150.0-450.0); RED BLOOD COUNT 3.45 X10^6/uL (3.5-5.4); RED CELL DISTRIBUTION WIDTH 15.6 % (11.6-16.5); WHITE BLOOD COUNT 22.2 X10^3/uL (3.6-10.0)
[2024-12-01 19:26] LABS: BILIRUBIN,URINE NEGATIVE (NEGATIVE); BLOOD/HEMOGLOBIN,URINE 3+ (NEGATIVE); GLUCOSE, URINE NEGATIVE (NEGATIVE); KETONES,URINE NEGATIVE (NEGATIVE); LEUKOCYTE ESTERASE ,URINE 3+ (NEGATIVE); NITRITES,URINE NEGATIVE (NEGATIVE); PROTEIN,URINE 3+ (NEGATIVE); UROBILINOGEN,URINE NORMAL (NORMAL)
[2024-12-01 19:36] LABS: PLATELET MORPHOLOGY COMMENT NORMAL (NORMAL)
[2024-12-01 19:38] LABS: APPEARANCE,URINE CLOUDY (CLEAR); COLOR,URINE YELLOW (YELLOW)
[2024-12-01 19:39] LABS: BACTERIA,URINE 4+ /HPF (NEGATIVE); SQUAMOUS EPITHELIAL CELL,UR RARE /HPF (NEGATIVE)
[2024-12-01 19:46] LABS: ALBUMIN 2.7 g/dL (3.4-5.0); CALCIUM 9.2 mg/dL (8.5-10.1); CARBON DIOXIDE 24.4 mmol/L (21-32); COR CA(FOR HYPOALB) 10.2 mg/dL (8.5-10.1); CREATININE 1.48 mg/dL (0.55-1.02); MAGNESIUM 1.4 mg/dL (2.0-2.9); POTASSIUM 4.8 mmol/L (3.5-5.1); TOTAL PROTEIN 7.5 g/dL (6.4-8.2)
--- NOTE | 2024-12-01 20:19 | ED.ABDFE ---
HPI Time Seen Time Seen by Provider: 12/01/24 18:59 PCP Primary Care Physician: dominique HPI Comment HPI Comment: 89 y/o alone in room reports she got sick at home yesterday with lower back and abdominal pain and says she "couldn't do anything for myself"; this worsened today and she admits to urine being "uncomfortable"; she denies cp, sob, n/v/d. 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 Family History History of Family Medical Conditions: Yes Family Medical History: Diabetes Mellitus, Cancer, IA and Coronary Artery Disease Social History Does any household member use tobacco: No Alcohol Use: None Do you use any recreational Drugs:: No Lives With: Family Lives Where: Home Infectious screening In the last 2 months have you had wt loss of >10#?: NO Have you had fever, night sweats or hemotysis?: No Have you traveled outside the country in the last 6 months?: No Isolation: Standard ROS Review of Systems Constitutional: No Symptoms Reported Eyes: No Symptoms Reported ENTM: No Symptoms Reported Respiratoy: No Symptoms Reported Cardiovascular: No Symptoms Reported Gastrointestinal/Abdominal: See HPI Genitourinary: See HPI; negative Frequency or Bleeding Neurological: No Symptoms Reported; negative Weakness or Dizziness Integumentary: No Symptoms Reported Hematologic/Lymphatic: No Symptoms Reported Endocrine: No Symptoms Reported Psychiatric: No Symptoms Reported PE Vital Signs Vitals: Vital Signs Temperature 98.7 F Pulse Rate [Left Brachial] 92 Pulse Rate 91 Pulse Rate 94 Pulse Rate 96 Pulse Rate 93 Pulse Rate 100 Respiratory Rate 18 Respiratory Rate 24 Blood Pressure [Right Arm] 168/70 Blood Pressure 143/63 Blood Pressure 128/62 Blood Pressure 146/65 Blood Pressure 146/65 Blood Pressure 132/59 Blood Pressure 168/70 Blood Pressure 169/72 O2 Sat by Pulse Oximetry 96 O2 Sat by Pulse Oximetry 94 O2 Sat by Pulse Oximetry 94 O2 Sat by Pulse Oximetry 95 O2 Sat by Pulse Oximetry 95 O2 Sat by Pulse Oximetry 94 O2 Sat by Pulse Oximetry 94 General Limitations: Language Barrier and Other (mild confusion) General Appearance: Alert and In No Apparent Distress Head Head Exam: Normal Inspection Eyes Eye exam: Normal Appearance ENT ENT Exam: Normal Exam Neck Neck Exam: Normal Inspection Chest Chest Inspection: Normal Inspection Respiratory Respiratory Exam: Normal Lung Sounds Bilat Cardiovascular Cardiovascular Exam: Regular Rate and Normal Rhythm Abdominal Exam Abdominal Exam: Normal Bowel Sounds, Soft and Tenderness Abdominal Tenderness: Mild Back Back Exam: Normal Inspection Extremeties Extremities Exam: Normal Inspection Neurologic Neurological Exam: Alert and Oriented X3 Psychiatric Psychiatric Exam: Normal Affect and Normal Mood Skin Skin Exam: Warm, Dry and Intact COURSE Consultation Consultation Comments: Dr Beverly accepts admission. ROR Labs Reviewed Laboratory Results Reviewed?: Yes 12/02/24 04:08 12/02/24 04:08 Laboratory: WBC 22.2 X10^3/uL (3.6-10.0) H 12/01/24 19:10 RBC 3.45 X10^6/uL (3.5-5.4) L 12/01/24 19:10 Hgb 11.1 g/dL (12.0-16.0) L 12/01/24 19:10 Hct 32.6 % (36.0-47.0) L 12/01/24 19:10 MCV 94.6 fL (80.0-100.0) 12/01/24 19:10 MCH 32.2 pg (27.0-34.0) 12/01/24 19:10 MCHC 34.1 g/dL (33.0-35.0) 12/01/24 19:10 RDW 15.6 % (11.6-16.5) 12/01/24 19:10 Plt Count 189 X10^3/uL (150.0-450.0) 12/01/24 19:10 Plt Count Comment Adequate (ADEQUATE) 12/01/24 19:10 MPV 8.3 fL (7.4-11.0) 12/01/24 19:10 Neut % (Auto) 90.3 % (42.0-75.0) H 12/01/24 19:10 Lymph % (Auto) 3.3 % (21.0-51.0) L 12/01/24 19:10 [place] % (Auto) 5.8 % (0.0-13.0) 12/01/24 19:10 Eos % (Auto) 0.3 % (0.9-2.9) L 12/01/24 19:10 Baso % (Auto) 0.3 % (0.2-1.0) 12/01/24 19:10 Neut # (Auto) 20.1 x10^3/uL (2.2-4.8) H 12/01/24 19:10 Lymph # (Auto) 0.7 X10^3/uL (1.3-2.9) L 12/01/24 19:10 [place] # (Auto) 1.3 x10^3/uL (0.3-0.8) H 12/01/24 19:10 Eos # (Auto) 0.1 x10^3/uL (0.0-0.2) 12/01/24 19:10 Baso # (Auto) 0.1 X10^3/uL (0.0-0.1) 12/01/24 19:10 Absolute Nucleated RBC 0.0 /100WBC 12/01/24 19:10 Total Counted 100 12/01/24 19:10 Neutrophils % (Manual) 94 % (39-76) H 12/01/24 19:10 Lymphocytes % (Manual) 3 % (13-43) L 12/01/24 19:10 Monocytes % (Manual) 3 % (4-9) L 12/01/24 19:10 Plt Morphology Comment Normal (NORMAL) 12/01/24 19:10 RBC Morphology Normal (NORMAL) 12/01/24 19:10 PT 17.7 SECONDS (11.8-14.3) 12/01/24 19:10 INR Target Range - 12/01/24 19:10 INR 1.50 (0.8-1.3) H 12/01/24 19:10 APTT 34.8 SECONDS (22.9-36.5) 12/01/24 19:10 PTT Comment - 12/01/24 19:10 Sodium 132 mmol/L (136-145) L 12/01/24 19:10 Corrected Sodium 133 mmol/L (136-145) L 12/01/24 19:10 Potassium 4.8 mmol/L (3.5-5.1) 12/01/24 19:10 Chloride 97 mmol/L (98-107) L 12/01/24 19:10 Carbon Dioxide 24.4 mmol/L (21-32) 12/01/24 19:10 BUN 45 mg/dL (7-18) H 12/01/24 19:10 Creatinine 1.48 mg/dL (0.55-1.02) H 12/01/24 19:10 Est GFR (MDRD) Af Amer 43 (>60) L 12/01/24 19:10 Est GFR (MDRD) Non-Af 35 (>60) L 12/01/24 19:10 Glucose 146 mg/dL (65-99) H 12/01/24 19:10 Calcium 9.2 mg/dL (8.5-10.1) 12/01/24 19:10 Corrected Calcium 10.2 mg/dL (8.5-10.1) H 12/01/24 19:10 Magnesium 1.4 mg/dL (2.0-2.9) L 12/01/24 19:10 Total Bilirubin 1.60 mg/dL (0.2-1.0) H 12/01/24 19:10 AST 18 Units/L (15-37) 12/01/24 19:10 ALT 13 Units/L (12-78) 12/01/24 19:10 Alkaline Phosphatase 73 Units/L (46-116) 12/01/24 19:10 Creatine Kinase 53 Units/L (26-192) 12/01/24 19:10 Troponin I High Sens 133.1 ng/L (4.0-60.0) H* 12/01/24 21:15 Total Protein 7.5 g/dL (6.4-8.2) 12/01/24 19:10 Albumin 2.7 g/dL (3.4-5.0) L 12/01/24 19:10 Globulin 4.8 g/dL (2.5-4.5) H 12/01/24 19:10 Albumin/Globulin Ratio 0.6 Ratio (1.1-2.1) L 12/01/24 19:10 Lipase 27 Units/L (16-77) 12/01/24 19:10 Specimen Type Clean catch urine 12/01/24 19:05 Urine Color Yellow (YELLOW) 12/01/24 19:05 Urine Appearance Cloudy (CLEAR) 12/01/24 19:05 Urine pH 5.0 (5.0 - 8.0) 12/01/24 19:05 Ur Specific [place] 1.015 (1.000-1.030) 12/01/24 19:05 Urine Protein 3+ (NEGATIVE) 12/01/24 19:05 Urine Glucose (UA) Negative (NEGATIVE) 12/01/24 19:05 Urine Ketones Negative (NEGATIVE) 12/01/24 19:05 Urine Blood 3+ (NEGATIVE) 12/01/24 19:05 Urine Nitrite Negative (NEGATIVE) 12/01/24 19:05 Urine Bilirubin Negative (NEGATIVE) 12/01/24 19:05 Urine Urobilinogen Normal (NORMAL) 12/01/24 19:05 Ur Leukocyte Esterase 3+ (NEGATIVE) 12/01/24 19:05 Urine RBC 3-5 /HPF (0-3) A 12/01/24 19:05 Urine WBC Tntc /HPF (0-5) A 12/01/24 19:05 Ur Squamous Epith Cells Rare /HPF (NEGATIVE) 12/01/24 19:05 Amorphous Sediment 1+ /HPF (NEGATIVE) 12/01/24 19:05 Urine Bacteria 4+ /HPF (NEGATIVE) 12/01/24 19:05 Ur Culture Indicated? Yes/culture set up 12/01/24 19:05 Other Results Comments: 89 y/o with htn, rls and confusion presents w/being "sick" x one day; found to have a troponin of 112, dehydration and uti; ekg shows new onset lbbb and lad since 2019. Pt does not have cp, nausea/vomiting, etc and is 89 yrs old, anemic and confused; will treat medically for now and monitor overnight. (troponin was 0.0 in 2019 when gfr was 41) EKG Compared to prior EKG Dated: 03/18/19 (new onset lbbb, lad, sinus dysrhythmia) Opioid Opioid Risk Tool Age (Jake box if 16-45): No History of Preadolescent Sexual Abuse: No Total: 0 Total Score Risk Category: Low Risk Copyright: Frank JACOB predicting aberrant behaviors Discharge Plan Diagnosis Discharge Problem: Acute myocardial infarction, Cystitis, Acute dehydration, Acute on chronic kidney failure, Acute confusion, Complete left bundle branch block Discharge Plan Patient Disposition: ADMITTED INPATIENT Condition: Stable
[2024-12-01] MEDS: ROCEPHIN VIAL 1 GRAM 1 G in NS 100 ML IV 100 ML IV SCH (20:38)
[2024-12-01] MEDS: NS 1,000 ML IV 1,000 ML IV ONE (20:55)
[2024-12-01] MEDS ORDERED: CONSULT PHARMACY - POTASSIUM & MAGNESIUM XX SCH (23:00)
[2024-12-01] MEDS: ASPIRIN EC 81 MG PO SCH (23:16)
[2024-12-01] MEDS: NS 1,000 ML IV 1,000 ML IV SCH (23:19)
[2024-12-02 00:04] VITALS: BMI 17.7
[2024-12-02] MEDS: ROCEPHIN VIAL 1 GRAM ONE (00:16)
[2024-12-02 05:17] LABS: BASOPHILS % (AUTO) 0 % (0.2-1.0); EOSINOPHILS % (AUTO) 0.2 % (0.9-2.9); LYMPHOCYTES # (AUTO) 0.9 X10^3/uL (1.3-2.9); LYMPHOCYTES % (AUTO) 4.8 % (21.0-51.0); MEAN CORPUSCULAR HEMOGLOBIN 32.6 pg (27.0-34.0); MEAN CORPUSCULAR HGB CONC 34.3 g/dL (33.0-35.0); MEAN CORPUSCULAR VOLUME 95.2 fL (80.0-100.0); MEAN PLATELET VOLUME 8.7 fL (7.4-11.0); MONOCYTES # (AUTO) 1.4 x10^3/uL (0.3-0.8); MONOCYTES % (AUTO) 7.1 % (0.0-13.0); NEUTROPHILS # (AUTO) 17.2 x10^3/uL (2.2-4.8); NEUTROPHILS % (AUTO) 87.9 % (42.0-75.0); PLATELET COUNT 151 X10^3/uL (150.0-450.0); RED BLOOD COUNT 2.73 X10^6/uL (3.5-5.4); RED CELL DISTRIBUTION WIDTH 15.8 % (11.6-16.5); WHITE BLOOD COUNT 19.6 X10^3/uL (3.6-10.0)
[2024-12-02 05:34] LABS: ALANINE AMINOTRANSFERASE 10 Units/L (12-78); ALBUMIN 1.9 g/dL (3.4-5.0); ALKALINE PHOSPHATASE 59 Units/L (46-116); ASPARTATE AMINO TRANSFERASE 13 Units/L (15-37); BLOOD UREA NITROGEN 37 mg/dL (7-18); CALCIUM 8.2 mg/dL (8.5-10.1); CARBON DIOXIDE 23.9 mmol/L (21-32); CHLORIDE 103 mmol/L (98-107); COR CA(FOR HYPOALB) 9.9 mg/dL (8.5-10.1); CREATININE 1.06 mg/dL (0.55-1.02); GLUCOSE 110 mg/dL (65-99); POTASSIUM 4.1 mmol/L (3.5-5.1); SODIUM 135 mmol/L (136-145); TOTAL PROTEIN 5.7 g/dL (6.4-8.2); eGFR NON BLACK RACES 52 (>60)
[2024-12-02 05:39] LABS: HEMOGLOBIN 8.9 g/dL (12.0-16.0)
--- NOTE | 2024-12-02 05:39 | EKG ---
Test Reason : AMI, LBBB Blood Pressure : */* mmHG Vent. Rate : 67 BPM Atrial Rate : 67 BPM P-R Int : 152 ms QRS Dur : 134 ms QT Int : 486 ms P-R-T Axes : 70 -57 127 degrees QTc Int : 513 ms Normal sinus rhythm Left axis deviation Left bundle branch block Abnormal ECG When compared with ECG of 01-DEC-2024 19:16, (Unconfirmed) T wave inversion now evident in Anterior leads QT has lengthened Confirmed by Yimi Wood MD ([id number]) on 12/02/2024 7:34:10 AM Referred By: Confirmed By: Yimi Wood MD
--- NOTE | 2024-12-02 06:09 | RAD ---
EXAM: Portable chest HISTORY: Epigastric pain COMPARISON: 11/13/2022 FINDINGS: Heart size is normal. Opal are normal. Lungs are hyperinflated. There are some chronic appearing interstitial lung changes present not significantly changed from the prior examination. There are s ome new pulmonary opacities in the right upper lobe perihilar region and right lung base which could represent superimposed acute pneumonia. The remainder of the scattered opacities bilaterally appear chronic and unchanged from the prior examination. No pleural effusion or pneumothorax identified. B shara thorax is unremarkable. IMPRESSION: Hyperinflation consistent with COPD in the appropriate clinical setting Mild chronic interstitial lung changes, stable Patchy opacities in the right perihilar region upper lobe and right lower lobe possibly superimposed acute pneumonia THIS IS AN ELECTRONICALLY VERIFIED FINAL REPORT 12/02/2024 6:06 AM - Electronically signed by Marquise Kim MD
[2024-12-02] MEDS: VIBRAMYCIN 100 MG in D5W 250 ML IV 250 ML IV SCH (09:37)
[2024-12-02] MEDS ORDERED: NORCO 5/325 MG TAB PO PRN (09:52)
--- NOTE | 2024-12-02 10:04 | DR.H&P ---
H&P History & Physical for Day of: H&P Date: 12/02/24 Chief Complaint Chief Complaint: abdominal pain, nausea History of Present Illness History of Present Illness: Ms Cota is a 89y/o female with a PMH of CAD, HTN, GERD, Anxiety, OA and chronic pain syndrome presented with feeling sick for a few days including abdominal pain and nausea. She is a very poor historian. ER work up showed elevated WBC, troponin and creatinine. UA was concerning for infection, CXR showed possible pneumonia. EKG showed no acute ST changes, prior LBBB. She was started on hydration and IV Rocephin. She was admitted for further management. This morning, she reports feeling better. She states her abdominal pain has resolved. She is on room air, denies URI symptoms. Labs/imaging reviewed: -WBC 19.6 Hgb 8.9 K 4.1 Mag 1.4 BUN/Cr 37/1.06 Trop 112-133-78.5 -Urine Cx pending -Echo pending Plan: continue ICU monitoring with telemetry. Echo pending. Denies cardiopulmonary symptoms. Continue IV Rocephin, add doxycycline. Nebs prn, IS. Continue hydration. Follow pending cultures. Resume home medications. Replace electrolytes as per protocol. PT/OT as tolerated. Time spent for clinical assessment, reviewing labs/imaging, physical exam, decision making and documentation greater than 45 mins. Past Medical History Past Medical History: Anxiety, Arthritis, Coronary Artery Disease, Depression, GERD and Hypertension Past Surgical History Surgical History: MINE [employer] DISP[employer]ER Surgery Family History Family Medical History: Coronary Artery Disease and Hypertension Social History Does patient currently use any type of tobacco product: No Type of Tobacco Use: None Does any household member use tobacco: No Alcohol Use: None Drug Use: None Allergies Allergies Allergy/AdvReac Type Severity Reaction Status Date / Time cortisone Allergy Intermediate Verified 08/24/24 18:33 Labs 12/02/24 04:08 12/02/24 04:08 Labs: Laboratory WBC 19.6 X10^3/uL (3.6-10.0) H 12/02/24 04:08 RBC 2.73 X10^6/uL (3.5-5.4) L 12/02/24 04:08 Hgb 8.9 g/dL (12.0-16.0) L D 12/02/24 04:08 Hct 26.0 % (36.0-47.0) L 12/02/24 04:08 MCV 95.2 fL (80.0-100.0) 12/02/24 04:08 MCH 32.6 pg (27.0-34.0) 12/02/24 04:08 MCHC 34.3 g/dL (33.0-35.0) 12/02/24 04:08 RDW 15.8 % (11.6-16.5) 12/02/24 04:08 Plt Count 151 X10^3/uL (150.0-450.0) 12/02/24 04:08 Plt Count Comment Adequate (ADEQUATE) 12/01/24 19:10 MPV 8.7 fL (7.4-11.0) 12/02/24 04:08 Neut % (Auto) 87.9 % (42.0-75.0) H 12/02/24 04:08 Lymph % (Auto) 4.8 % (21.0-51.0) L 12/02/24 04:08 Long % (Auto) 7.1 % (0.0-13.0) 12/02/24 04:08 Eos % (Auto) 0.2 % (0.9-2.9) L 12/02/24 04:08 Baso % (Auto) 0 % (0.2-1.0) L 12/02/24 04:08 Neut # (Auto) 17.2 x10^3/uL (2.2-4.8) H 12/02/24 04:08 Lymph # (Auto) 0.9 X10^3/uL (1.3-2.9) L 12/02/24 04:08 Long # (Auto) 1.4 x10^3/uL (0.3-0.8) H 12/02/24 04:08 Eos # (Auto) 0.0 x10^3/uL (0.0-0.2) 12/02/24 04:08 Baso # (Auto) 0.0 X10^3/uL (0.0-0.1) 12/02/24 04:08 Absolute Nucleated RBC 0.1 /100WBC 12/02/24 04:08 Total Counted 100 12/01/24 19:10 Neutrophils % (Manual) 94 % (39-76) H 12/01/24 19:10 Lymphocytes % (Manual) 3 % (13-43) L 12/01/24 19:10 Monocytes % (Manual) 3 % (4-9) L 12/01/24 19:10 Plt Morphology Comment Normal (NORMAL) 12/01/24 19:10 RBC Morphology Normal (NORMAL) 12/01/24 19:10 PT 17.7 SECONDS (11.8-14.3) 12/01/24 19:10 INR Target Range - 12/01/24 19:10 INR 1.50 (0.8-1.3) H 12/01/24 19:10 APTT 34.8 SECONDS (22.9-36.5) 12/01/24 19:10 PTT Comment - 12/01/24 19:10 Sodium 135 mmol/L (136-145) L 12/02/24 04:08 Corrected Sodium TNP 12/02/24 04:08 Potassium 4.1 mmol/L (3.5-5.1) 12/02/24 04:08 Chloride 103 mmol/L (98-107) 12/02/24 04:08 Carbon Dioxide 23.9 mmol/L (21-32) 12/02/24 04:08 BUN 37 mg/dL (7-18) H 12/02/24 04:08 Creatinine 1.06 mg/dL (0.55-1.02) H 12/02/24 04:08 Est GFR (MDRD) Af Amer > 60 (>60) 12/02/24 04:08 Est GFR (MDRD) Non-Af 52 (>60) L 12/02/24 04:08 Glucose 110 mg/dL (65-99) H 12/02/24 04:08 Calcium 8.2 mg/dL (8.5-10.1) L 12/02/24 04:08 Corrected Calcium 9.9 mg/dL (8.5-10.1) 12/02/24 04:08 Magnesium 1.4 mg/dL (2.0-2.9) L 12/01/24 19:10 Total Bilirubin 1.10 mg/dL (0.2-1.0) H 12/02/24 04:08 AST 13 Units/L (15-37) L 12/02/24 04:08 ALT 10 Units/L (12-78) L 12/02/24 04:08 Alkaline Phosphatase 59 Units/L (46-116) 12/02/24 04:08 Creatine Kinase 29 Units/L (26-192) 12/02/24 04:08 Troponin I High Sens 78.5 ng/L (4.0-60.0) H* 12/02/24 04:08 Total Protein 5.7 g/dL (6.4-8.2) L 12/02/24 04:08 Albumin 1.9 g/dL (3.4-5.0) L 12/02/24 04:08 Globulin 3.8 g/dL (2.5-4.5) 12/02/24 04:08 Albumin/Globulin Ratio 0.5 Ratio (1.1-2.1) L 12/02/24 04:08 Lipase 27 Units/L (16-77) 12/01/24 19:10 Specimen Type Clean catch urine 12/01/24 19:05 Urine Color Yellow (YELLOW) 12/01/24 19:05 Urine Appearance Cloudy (CLEAR) 12/01/24 19:05 Urine pH 5.0 (5.0 - 8.0) 12/01/24 19:05 Ur Specific [place] 1.015 (1.000-1.030) 12/01/24 19:05 Urine Protein 3+ (NEGATIVE) 12/01/24 19:05 Urine Glucose (UA) Negative (NEGATIVE) 12/01/24 19:05 Urine Ketones Negative (NEGATIVE) 12/01/24 19:05 Urine Blood 3+ (NEGATIVE) 12/01/24 19:05 Urine Nitrite Negative (NEGATIVE) 12/01/24 19:05 Urine Bilirubin Negative (NEGATIVE) 12/01/24 19:05 Urine Urobilinogen Normal (NORMAL) 12/01/24 19:05 Ur Leukocyte Esterase 3+ (NEGATIVE) 12/01/24 19:05 Urine RBC 3-5 /HPF (0-3) A 12/01/24 19:05 Urine WBC Tntc /HPF (0-5) A 12/01/24 19:05 Ur Squamous Epith Cells Rare /HPF (NEGATIVE) 12/01/24 19:05 Amorphous Sediment 1+ /HPF (NEGATIVE) 12/01/24 19:05 Urine Bacteria 4+ /HPF (NEGATIVE) 12/01/24 19:05 Ur Culture Indicated? Yes/culture set up 12/01/24 19:05 Review of Systems Constitutional: Weakness Eyes: No Symptoms Reported ENT: No Symptoms Reported Respiratory: No Symptoms Reported Cardiovascular: No Symptoms Reported Gastrointestinal: Abdominal Pain Genitourinary: No Symptoms Reported Musculoskeletal: No Symptoms Reported Skin: No Symptoms Reported Neurological: Confusion Physical Exam Vital Signs: Vital Signs Temperature 97.8 F Pulse Rate [Left Brachial] 62 Pulse Rate [Left Brachial] 66 Respiratory Rate 21 Respiratory Rate 21 Blood Pressure [Right Arm] 135/61 Blood Pressure [Right Arm] 128/62 O2 Sat by Pulse Oximetry 97 O2 Sat by Pulse Oximetry 96 Oriented: Normal Eyes: Normal Respiratory: Diminished Throughout Cardiovascular: Normal Auscultation: Bowel Sounds: Normal Palpation: Normal Tenderness: Normal Skin: Decreased [place] Musculoskeletal: Normal Psychiatric: Normal Mood Description: Calm Affect: Normal Speech Pattern: Clear and Appropriate Assessment/Plan (1) Acute dehydration: Status: Acute (2) Acute on chronic kidney failure: Qualifiers: Acute renal failure type: unspecified Chronic kidney disease stage: unspecified stage Qualified Code(s): N17.9 - Acute kidney failure, unspecified; N18.9 - Chronic kidney disease, unspecified Status: Acute (3) Pneumonia: Qualifiers: Laterality: left Lung location: lower lobe of lung Pneumonia type: due to unspecified organism Qualified Code(s): J18.1 - Lobar pneumonia, unspecified organism Status: Acute (4) Acute confusion: Status: Acute (5) HTN (hypertension): Qualifiers: Hypertension type: primary hypertension Qualified Code(s): I10 - Essential (primary) hypertension Status: Chronic (6) Hypomagnesemia: Status: Acute (7) Elevated troponin: Status: Acute Review H&P Reviewed: Yes Patient was examined?: Yes
[2024-12-02] MEDS: PROTONIX TAB 40 MG PO SCH (10:36)
[2024-12-02] MEDS: COREG TAB 12.5 MG PO SCH (10:36)
[2024-12-02] MEDS: NS 1,000 ML IV 1,000 ML with MAGNESIUM SULFATE 50% INJ VIAL 1 G IV SCH (10:37)
[2024-12-02] MEDS: XOPENEX 1.25 MG/3 ML NEBULE NEB SCH (13:55)
[2024-12-02] MEDS: LYRICA CAP 50 mg PO SCH (20:16)
[2024-12-02] MEDS: PEPCID TAB 40 MG PO SCH (20:16)
[2024-12-02] MEDS: AMBIEN PO PRN (20:16)
[2024-12-03 04:08] VITALS: O2SAT 98
[2024-12-03 04:58] LABS: BASOPHILS % (AUTO) 0.1 % (0.2-1.0); EOSINOPHILS # (AUTO) 0.3 x10^3/uL (0.0-0.2); EOSINOPHILS % (AUTO) 3.7 % (0.9-2.9); HEMATOCRIT 25.4 % (36.0-47.0); HEMOGLOBIN 8.7 g/dL (12.0-16.0); LYMPHOCYTES # (AUTO) 0.6 X10^3/uL (1.3-2.9); MEAN CORPUSCULAR HEMOGLOBIN 32.8 pg (27.0-34.0); MEAN CORPUSCULAR HGB CONC 34.4 g/dL (33.0-35.0); MEAN CORPUSCULAR VOLUME 95.2 fL (80.0-100.0); MONOCYTES # (AUTO) 0.8 x10^3/uL (0.3-0.8); MONOCYTES % (AUTO) 8.7 % (0.0-13.0); NEUTROPHILS # (AUTO) 7.5 x10^3/uL (2.2-4.8); NEUTROPHILS % (AUTO) 81.5 % (42.0-75.0); PLATELET COUNT 161 X10^3/uL (150.0-450.0); RED BLOOD COUNT 2.67 X10^6/uL (3.5-5.4); RED CELL DISTRIBUTION WIDTH 16.1 % (11.6-16.5)
[2024-12-03 05:09] LABS: WHITE BLOOD COUNT 9.2 X10^3/uL (3.6-10.0)
[2024-12-03 05:25] LABS: ALANINE AMINOTRANSFERASE 10 Units/L (12-78); ALBUMIN 1.7 g/dL (3.4-5.0); ALKALINE PHOSPHATASE 56 Units/L (46-116); ASPARTATE AMINO TRANSFERASE 13 Units/L (15-37); BLOOD UREA NITROGEN 26 mg/dL (7-18); CALCIUM 8.4 mg/dL (8.5-10.1); CARBON DIOXIDE 22.3 mmol/L (21-32); CHLORIDE 108 mmol/L (98-107); COR CA(FOR HYPOALB) 10.2 mg/dL (8.5-10.1); COR NA(FOR HYPERGLY) 139 mmol/L (136-145); CREATININE 0.84 mg/dL (0.55-1.02); GLUCOSE 161 mg/dL (65-99); MAGNESIUM 1.7 mg/dL (2.0-2.9); POTASSIUM 3.6 mmol/L (3.5-5.1); SODIUM 138 mmol/L (136-145); TOTAL PROTEIN 5.4 g/dL (6.4-8.2); eGFR NON BLACK RACES > 60 (>60)
[2024-12-03] MEDS ORDERED: CONSULT PHARMACY - POTASSIUM & MAGNESIUM XX SCH (07:00)
[2024-12-03] MEDS: K-DUR TAB 20 MEQ PO SCH (08:05)
[2024-12-03] MEDS: ALDACTONE TAB 25 MG PO SCH (08:05)
[2024-12-03] MEDS: MAG-OX TAB PO SCH (08:05)
[2024-12-03 10:45] VITALS: BP 138/65; PULSE 67; RESP 20
[2024-12-03 12:27] VITALS: TEMP 98
--- NOTE | 2024-12-08 09:43 | W.DIS.FURT ---
Summary of Discharge Discharge Summary of Date Date of Exam: 12/03/24 Admission Date Date of Admission: 12/01/24 Admission Diagnosis Patient Problems (Updated 12/02/24 @ 10:03 by Asuncion Otoole MD) Acute dehydration (Acute) E86.0 Acute on chronic kidney failure (Acute) N17.9, N18.9 Acute confusion (Acute) R41.0 Acute myocardial infarction (Acute) I21.9 Complete left bundle branch block (Acute) I44.7 Hospital Course: Patient is a 89y/o female with a PMH of CAD, HTN, GERD, Anxiety, OA and chronic pain syndrome admitted for pneumonia and cystitis. Her hospital/treatment course included hydration and IV Rocephin and doxycycline. Nebs prn, IS. Electrolytes were replete per protocol. Pt responded well to treatments and symptoms significantly improved. Echo EF 64%. Urine culture positive for E coli. Pt discharged in stable condition. rx cefdinir. Instructed to follow up with pcp in 1 week. Vital Signs: Vital Signs (72 hours) 12/01/24 18:10 12/01/24 19:12 12/01/24 19:11 Temperature 98.7 F Pulse Rate 100 H Pulse Rate [Left Brachial] 92 H Respiratory Rate 24 18 Blood Pressure 169/72 Blood Pressure [Right Arm] 168/70 O2 Sat by Pulse Oximetry 94 L 95 94 L Oxygen Delivery Method Room Air Room Air 12/01/24 19:12 12/01/24 19:12 12/01/24 19:15 Temperature Pulse Rate 93 H 96 H Pulse Rate [Left Brachial] Respiratory Rate Blood Pressure 168/70 Blood Pressure [Right Arm] O2 Sat by Pulse Oximetry 95 94 L Oxygen Delivery Method 12/01/24 19:30 12/01/24 19:30 12/01/24 19:43 Temperature Pulse Rate 94 H 91 H Pulse Rate [Left Brachial] Respiratory Rate Blood Pressure 132/59 Blood Pressure [Right Arm] O2 Sat by Pulse Oximetry 94 L 96 Oxygen Delivery Method 12/01/24 20:52 12/01/24 20:52 12/01/24 21:00 Temperature Pulse Rate Pulse Rate [Left Brachial] Respiratory Rate Blood Pressure 146/65 146/65 128/62 Blood Pressure [Right Arm] O2 Sat by Pulse Oximetry Oxygen Delivery Method 12/01/24 21:31 12/01/24 21:31 12/01/24 22:02 Temperature Pulse Rate Pulse Rate [Left Brachial] Respiratory Rate Blood Pressure 143/63 143/63 143/60 Blood Pressure [Right Arm] O2 Sat by Pulse Oximetry Oxygen Delivery Method 12/01/24 22:30 12/01/24 23:20 12/02/24 00:00 Temperature 99.2 F 99.0 F Pulse Rate 84 Pulse Rate [Left Brachial] 77 Respiratory Rate 27 H 33 H Blood Pressure 129/62 147/66 Blood Pressure [Right Arm] 128/62 O2 Sat by Pulse Oximetry 96 95 Oxygen Delivery Method Room Air Room Air 12/01/24 23:41 12/02/24 04:00 12/02/24 08:00 Temperature 97.8 F 98.1 F Pulse Rate Pulse Rate [Left Brachial] 66 62 Respiratory Rate 21 21 Blood Pressure Blood Pressure [Right Arm] 128/62 135/61 O2 Sat by Pulse Oximetry 96 97 Oxygen Delivery Method Room Air Room Air Room Air 12/02/24 12:00 12/02/24 13:56 12/02/24 07:00 Temperature 98.1 F Pulse Rate 84 Pulse Rate [Left Brachial] 65 Respiratory Rate 23 Blood Pressure Blood Pressure [Right Arm] 119/72 O2 Sat by Pulse Oximetry 98 98 Oxygen Delivery Method Room Air Room Air 12/02/24 16:00 12/02/24 19:00 12/02/24 20:00 Temperature 98.0 F 98.2 F Pulse Rate Pulse Rate [Left Brachial] 65 64 Respiratory Rate 23 29 H Blood Pressure Blood Pressure [Right Arm] 122/60 142/63 O2 Sat by Pulse Oximetry 97 98 Oxygen Delivery Method Room Air Room Air Room Air 12/02/24 20:30 12/02/24 20:30 12/03/24 00:00 Temperature 97.8 F Pulse Rate 65 Pulse Rate [Left Brachial] 64 Respiratory Rate 20 Blood Pressure Blood Pressure [Right Arm] 112/58 O2 Sat by Pulse Oximetry 100 96 Oxygen Delivery Method Room Air Room Air 12/03/24 04:00 12/03/24 09:16 Temperature 98.0 F Pulse Rate 65 Pulse Rate [Left Brachial] 71 Respiratory Rate 23 Blood Pressure Blood Pressure [Right Arm] 158/97 O2 Sat by Pulse Oximetry 98 98 Oxygen Delivery Method Room Air Labs: Laboratory Last Values WBC 9.2 X10^3/uL (3.6-10.0) D 12/03/24 04:10 RBC 2.67 X10^6/uL (3.5-5.4) L 12/03/24 04:10 Hgb 8.7 g/dL (12.0-16.0) L 12/03/24 04:10 Hct 25.4 % (36.0-47.0) L 12/03/24 04:10 MCV 95.2 fL (80.0-100.0) 12/03/24 04:10 MCH 32.8 pg (27.0-34.0) 12/03/24 04:10 MCHC 34.4 g/dL (33.0-35.0) 12/03/24 04:10 RDW 16.1 % (11.6-16.5) 12/03/24 04:10 Plt Count 161 X10^3/uL (150.0-450.0) 12/03/24 04:10 Plt Count Comment Adequate (ADEQUATE) 12/01/24 19:10 MPV 9.0 fL (7.4-11.0) 12/03/24 04:10 Neut % (Auto) 81.5 % (42.0-75.0) H 12/03/24 04:10 Lymph % (Auto) 6.0 % (21.0-51.0) L 12/03/24 04:10 [place] % (Auto) 8.7 % (0.0-13.0) 12/03/24 04:10 Eos % (Auto) 3.7 % (0.9-2.9) H 12/03/24 04:10 Baso % (Auto) 0.1 % (0.2-1.0) L 12/03/24 04:10 Neut # (Auto) 7.5 x10^3/uL (2.2-4.8) H 12/03/24 04:10 Lymph # (Auto) 0.6 X10^3/uL (1.3-2.9) L 12/03/24 04:10 [place] # (Auto) 0.8 x10^3/uL (0.3-0.8) 12/03/24 04:10 Eos # (Auto) 0.3 x10^3/uL (0.0-0.2) H 12/03/24 04:10 Baso # (Auto) 0.0 X10^3/uL (0.0-0.1) 12/03/24 04:10 Absolute Nucleated RBC 0.0 /100WBC 12/03/24 04:10 Total Counted 100 12/01/24 19:10 Neutrophils % (Manual) 94 % (39-76) H 12/01/24 19:10 Lymphocytes % (Manual) 3 % (13-43) L 12/01/24 19:10 Monocytes % (Manual) 3 % (4-9) L 12/01/24 19:10 Plt Morphology Comment Normal (NORMAL) 12/01/24 19:10 RBC Morphology Normal (NORMAL) 12/01/24 19:10 PT 17.7 SECONDS (11.8-14.3) 12/01/24 19:10 INR Target Range - 12/01/24 19:10 INR 1.50 (0.8-1.3) H 12/01/24 19:10 APTT 34.8 SECONDS (22.9-36.5) 12/01/24 19:10 PTT Comment - 12/01/24 19:10 Sodium 138 mmol/L (136-145) 12/03/24 04:10 Corrected Sodium 139 mmol/L (136-145) 12/03/24 04:10 Potassium 3.6 mmol/L (3.5-5.1) 12/03/24 04:10 Chloride 108 mmol/L (98-107) H 12/03/24 04:10 Carbon Dioxide 22.3 mmol/L (21-32) 12/03/24 04:10 BUN 26 mg/dL (7-18) H 12/03/24 04:10 Creatinine 0.84 mg/dL (0.55-1.02) 12/03/24 04:10 Est GFR (MDRD) Af Amer > 60 (>60) 12/03/24 04:10 Est GFR (MDRD) Non-Af > 60 (>60) 12/03/24 04:10 Glucose 161 mg/dL (65-99) H 12/03/24 04:10 Calcium 8.4 mg/dL (8.5-10.1) L 12/03/24 04:10 Corrected Calcium 10.2 mg/dL (8.5-10.1) H 12/03/24 04:10 Magnesium 1.7 mg/dL (2.0-2.9) L 12/03/24 04:10 Total Bilirubin 0.30 mg/dL (0.2-1.0) 12/03/24 04:10 AST 13 Units/L (15-37) L 12/03/24 04:10 ALT 10 Units/L (12-78) L 12/03/24 04:10 Alkaline Phosphatase 56 Units/L (46-116) 12/03/24 04:10 Creatine Kinase 29 Units/L (26-192) 12/02/24 04:08 Troponin I High Sens 46.6 ng/L (4.0-60.0) 12/02/24 10:21 Total Protein 5.4 g/dL (6.4-8.2) L 12/03/24 04:10 Albumin 1.7 g/dL (3.4-5.0) L 12/03/24 04:10 Globulin 3.7 g/dL (2.5-4.5) 12/03/24 04:10 Albumin/Globulin Ratio 0.5 Ratio (1.1-2.1) L 12/03/24 04:10 Lipase 27 Units/L (16-77) 12/01/24 19:10 Specimen Type Clean catch urine 12/01/24 19:05 Urine Color Yellow (YELLOW) 12/01/24 19:05 Urine Appearance Cloudy (CLEAR) 12/01/24 19:05 Urine pH 5.0 (5.0 - 8.0) 12/01/24 19:05 Ur Specific [place] 1.015 (1.000-1.030) 12/01/24 19:05 Urine Protein 3+ (NEGATIVE) 12/01/24 19:05 Urine Glucose (UA) Negative (NEGATIVE) 12/01/24 19:05 Urine Ketones Negative (NEGATIVE) 12/01/24 19:05 Urine Blood 3+ (NEGATIVE) 12/01/24 19:05 Urine Nitrite Negative (NEGATIVE) 12/01/24 19:05 Urine Bilirubin Negative (NEGATIVE) 12/01/24 19:05 Urine Urobilinogen Normal (NORMAL) 12/01/24 19:05 Ur Leukocyte Esterase 3+ (NEGATIVE) 12/01/24 19:05 Urine RBC 3-5 /HPF (0-3) A 12/01/24 19:05 Urine WBC Tntc /HPF (0-5) A 12/01/24 19:05 Ur Squamous Epith Cells Rare /HPF (NEGATIVE) 12/01/24 19:05 Amorphous Sediment 1+ /HPF (NEGATIVE) 12/01/24 19:05 Urine Bacteria 4+ /HPF (NEGATIVE) 12/01/24 19:05 Ur Culture Indicated? Yes/culture set up 12/01/24 19:05 Reason For Visit: AMI,UTI, DEHYDRATION, LBBB,CONFUSION Discharge Date Discharge Date: 12/03/24 Discharge Diagnosis All Active Problems (Updated 12/02/24 @ 10:03 by Asuncion Otoole MD) Elevated troponin (Acute) Hypomagnesemia (Acute) Acute dehydration (Acute) Acute on chronic kidney failure (Acute) Acute confusion (Acute) Acute myocardial infarction (Acute) Complete left bundle branch block (Acute) UTI (urinary tract infection), bacterial (Acute) Flu vaccine need (Acute) Dysuria-frequency syndrome (Chronic) Vaginitis and vulvovaginitis (Acute) Insomnia secondary to anxiety (Acute) Acute gastritis (Acute) Seasonal and perennial allergic rhinitis (Acute) Dysuria (Acute) Constipation (Acute) UTI (urinary tract infection) (Acute) Hallucination (Acute) Nausea in adult (Acute) Encounter for monitoring opioid maintenance therapy (Acute) [place] (hard of hearing) (Acute) At high risk for falls (Acute) Chronic pain of multiple joints (Chronic) Macrocytic anemia with vitamin B12 deficiency (Acute) History of diverticulosis (Chronic) HTN (hypertension) (Chronic) RLS (restless legs syndrome) (Acute) Failure to thrive in adult (Acute) Frail elderly (Acute) Change in mental status (Acute) History of recent pneumonia (Acute) Anemia (Acute) Clavicle fracture (Acute) Generalized weakness (Acute) Clavicle fracture (Acute) Acute hyperkalemia (Acute) Pneumonia (Acute) Plan of Treatment: Continue with present treatment and follow up plan. Pt is to keep follow up appointment as instructed and take medications as ordered. Discharge Medications Discharge Medications: cortisone Allergy (Intermediate, Verified 08/24/24 18:33) Discharge Plan Discharge Plan Hospital Course: Patient is a 89y/o female with a PMH of CAD, HTN, GERD, Anxiety, OA and chronic pain syndrome admitted for pneumonia and cystitis. Her hospital/treatment course included hydration and IV Rocephin and doxycycline. Nebs prn, IS. Electrolytes were replete per protocol. Pt responded well to treatments and symptoms significantly improved. Echo EF 64%. Urine culture positive for E coli. Pt discharged in stable condition. rx cefdinir. Instructed to follow up with pcp in 1 week. Patient Disposition: 01 HOME, SELF-CARE Condition: Stable Health Concerns: Post Hospitalization: new medications and changes needed to prevent readmission or further decline. Pt educated and given instructions on all concerns. Care Plan Goals: Problem: Alteration in Mental Status Goal: Patient will stay oriented to their cognitive ability Instructions: Follow provided instructions. Follow up with primary physician as directed. Contact primary care physician or report to the closest Emergency Room if condition worsens. Plan of Treatment: Continue with present treatment and follow up plan. Pt is to keep follow up appointment as instructed and take medications as ordered. Prescriptions: New cefdinir 300 mg capsule 300 mg PO BID 7 Days Qty: 14 0RF Continued potassium chloride 10 mEq capsule, extended release 10 meq PO QDAY Qty: 90 0RF spironolactone 25 mg tablet 25 mg PO QDAY Qty: 90 0RF carvedilol 12.5 mg tablet 12.5 mg PO BID Qty: 180 0RF pregabalin 50 mg capsule 50 mg PO QHS MDD 2 30 Days Qty: 30 2RF zolpidem 10 mg tablet 10 mg PO QHS MDD 1/limit to 4 times a week PRN (Reason: sleep problems/difficulty going to sleep) 30 Days Qty: 20 1RF pantoprazole 20 mg tablet,delayed release (DR/EC) 20 mg PO QDAY MDD 1 before breakfast Qty: 90 0RF famotidine 40 mg tablet 40 mg PO QPM Qty: 90 0RF hydrocodone-acetaminophen 5-325 mg tablet 1 tab PO BID MDD 2 PRN (Reason: pain, mild) 30 Days Qty: 60 0RF Orders to Discharge Patient Discharge Orders: Discharge (Routine); Ordered 12/03/24 Ordered By: Royce Simmons Follow ups/Referrals Follow ups/Referrals: Royce Simmons MD [Primary Care Provider] - 12/09/24 2:20 pm Instructions Instructions: Urinary Tract Infection, Female, Confusion, Hypomagnesemia, Community-Acquired Pneumonia, Adult, [id number] Stand Alone Forms: Find Help Web Site, Post Hospital Follow Up Care
== END 2024-12-03 13:40 | disposition home or self-care (01) ==
LOC: ER 18:09 → ICU 18:09
PROVIDERS: ADMIT Internal Medicine; ATTEND Family Medicine
DX: N17.8 Other acute kidney failure; R45.1 Restlessness and agitation; B96.29 Other Escherichia coli [E. coli] as the cause of diseases classified elsewhere; E86.0 Dehydration; J18.9 Pneumonia, unspecified organism; R26.89 Other abnormalities of gait and mobility; E83.42 Hypomagnesemia; I21.9 Acute myocardial infarction, unspecified; N39.0 Urinary tract infection, site not specified; R10.13 Epigastric pain; R41.0 Disorientation, unspecified; R73.09 Other abnormal glucose; M54.59 Other low back pain; R94.31 Abnormal electrocardiogram [ECG] [EKG]; K21.9 Gastro-esophageal reflux disease without esophagitis; R06.02 Shortness of breath; I25.10 Atherosclerotic heart disease of native coronary artery without angina pectoris; R79.89 Other specified abnormal findings of blood chemistry; E87.1 Hypo-osmolality and hyponatremia; N18.9 Chronic kidney disease, unspecified; I44.7 Left bundle-branch block, unspecified; R79.1 Abnormal coagulation profile; J44.9 Chronic obstructive pulmonary disease, unspecified; F41.8 Other specified anxiety disorders; I12.9 Hypertensive chronic kidney disease with stage 1 through stage 4 chronic kidney disease, or unspecified chronic kidney disease